=== PATIENT | female | born 1960 | race Caucasian/White ===

== ENCOUNTER 2016-07-02 19:27 | Observation (INO) ==
[2016-07-02] MEDS ORDERED: *HR* Morphine 2 MG/ML SYRINGE IVP ONE (19:45)
--- NOTE | 2016-07-02 19:51 | Emergency Department Note ---
Disposition Clinical Impression: Choledochocele Chest pain Qualifiers: Chest pain type: unspecified Qualified Code(s): R07.9 - Chest pain, unspecified Disposition: Admitted As Inpatient Condition: Fair General Adult HPI - General Chief complaint: ED Chest Pain Stated complaint: CP Time Seen by Provider: 07/02/16 19:37 Source: patient Limitations: no limitations Nursing Notes Reviewed: Yes Vital Signs Reviewed: Yes - History of Present Illness HPI Narrative: 56-year-old female who reports that 3 hours ago she had sudden onset substernal chest pressure with discomfort radiating to the left arm. She says that this feels the same as when she had an UT approximately 2 years ago. At that time she had one stent placed this was done at [facility]. She said she has an additional symptom this time of abdominal discomfort radiating to her back which also started the same time. Prior to this there were no symptoms. She denies anything makes it better or worse. EMS administered 2 sublingual nitroglycerin which did not help her pain. She also received 325 of aspirin and 8 mg of Zofran. She reports her past medical history includes a brain aneurysm, hypertension, lung nodules. She currently takes metoprolol and aspirin. Radiation: extremity Pain Scale: 8 Consistency: constant Improves with: nothing Worsens with: nothing Associated symptoms: Reports: denies other symptoms Treatments Prior to Arrival: none - Related Data Previous Rx's Medication Instructions Recorded Hydrochlorothiazide 12.5 mg PO DAILY #10 tablet 01/05/16 Allergies Allergy/AdvReac Type Severity Reaction Status Date / Time No Known Allergies Allergy Verified 08/16/15 16:01 All systems ED: reviewed and negative except as stated. Constitutional: Denies: fever ENT ED: Denies: throat pain Cardiovascular: Reports: chest pain. Denies: syncope Respiratory: Reports: dyspnea. Denies: cough, wheezes Gastrointestinal: Reports: abdominal pain, nausea. Denies: vomiting, diarrhea, constipation, hematemesis Genitourinary: Denies: dysuria Musculoskeletal: Reports: back pain Integumentary: Denies: rash Neurological: Denies: headache Past Medical History - Past Medical History Medical history: Reports: coronary artery disease, GERD, hyperlipidemia, hypertension, kidney stones, myocardial infarction, other Surgical history: Reports: angioplasty/stent, appendectomy, cholecystectomy, hysterectomy, other (Lung biopsy with resultant pneumothorax and chest tube, kidney stone extraction) Psychiatric history: Reports: anxiety, depression COMMUNICATIONS CONTROLLER history: Reports: no COMMUNICATIONS CONTROLLER history - Social History Smoking Status: Current every day smoker Smokeless Tobacco Status: No Alcohol use: Reports: none Drug use: Reports: none Physical Exam - General Limitations: no limitations General appearance: alert, in distress - Head Head exam: atraumatic - Eye Eye exam: Present: normal appearance, PERRL, EOMI - ENT ENT exam: normal exam, normal oropharynx - Neck Neck exam: Present: normal inspection, full ROM - Chest Chest inspection: Present: normal inspection - Respiratory Respiratory exam: Present: normal lung sounds bilaterally. Absent: respiratory distress - Cardiovascular Cardiovascular exam: Present: regular rate, normal rhythm - Abdominal Exam Abdominal exam: Present: soft, tenderness (epigastrum) - Extremities Exam Extremities exam: Present: normal inspection - Back Exam Back exam: Present: normal inspection - Neurological Exam Neurological exam: Present: alert, oriented X3, CN II-XII intact - Psychiatric Psychiatric exam: Present: anxious - Skin Skin exam: Present: warm, dry Course Course Narrative: Due to her history of coronary arterial disease we will do a cardiac workup. I also have concern for aortic dissection as she does have pain radiating to her back and also includes C abdomen. Her EKG does not show acute abnormality and is normal sinus rhythm. Wells criteria for PE is 0. She has a normal heart rate with 100% SPO2 on room air and normal blood pressure. I will treat her symptoms while she is here and reevaluate - Reevaluation(s) Reevaluation #1: No dissection present. Dilated common bile duct is present. MRCP or ERCP recommended by radiology. Called the paging center and verified we will have GI coverage tomorrow. Will admit for symptomatic treatment, chest pain rule out , and and GI consultation. Reevaluation #2: Accepted by the hospitalist Vital Signs Temperature 0 F L 07/02/16 19:30 Pulse Rate 91 07/02/16 19:30 Respiratory Rate 18 07/02/16 19:30 Blood Pressure 124/93 07/02/16 19:30 O2 Sat by Pulse Oximetry 100 07/02/16 19:30 Temperature 0 F L 07/02/16 19:30 Pulse Rate 89 07/02/16 22:47 Respiratory Rate 16 07/02/16 22:47 Blood Pressure 115/70 07/02/16 22:47 O2 Sat by Pulse Oximetry 97 07/02/16 22:47 Oxygen Delivery Oxygen Delivery Room Air Medical Decision Making - Medical Records Medical records reviewed: Yes I reviewed the patient's medical records. - Lab Data Lab results reviewed: Yes I reviewed the patient's lab results. Result diagrams: 07/02/16 20:07 07/02/16 20:09 Lab Results 07/02/16 07/02/16 07/02/16 Range/Units 20:07 20:07 20:09 WBC 9.3 (4.3-11.1) K/mcL RBC 4.81 (3.82-4.97) M/mcL Hgb 14.1 (11.5-15.4) g/dL Hct 42.6 (35.3-44.9) % MCV 88.6 (83.0-100.0) fL MCH 29.3 (28.0-33.3) pg MCHC 33.1 (31.6-35.5) g/dL RDW 13.0 (11.5-14.5) % Plt Count 336 (140-400) K/mcL MPV 11.5 (9.4-12.4) fL Immature Gran % 0.5 (0-4) % Seg Neutrophils % 52.6 % Lymphocytes % 36.9 % Monocytes % 7.3 % Eosinophils % 1.7 % Basophils % 1.0 % Neutrophils # 4.9 (1.6-8.9) K/mcL Lymphocytes # 3.4 (0.6-4.6) K/mcL Monocytes # 0.7 (0.0-1.3) K/mcL Eosinophils # 0.2 (0.0-0.6) K/mcL Basophils # 0.1 (0.0-0.2) K/mcL Immature Plt Fraction 6.9 H (1.1-6.1) % PT 10.9 (9.4-12.1) Seconds INR 1.0 APTT 33.2 (26.0-36.0) Seconds Sodium (136-145) mEq/L Potassium (3.5-4.5) mEq/L Chloride (98-109) mEq/L Carbon Dioxide (19-29) mEq/L BUN (7-20) mg/dL Creatinine (0.57-1.11) mg/dL Est GFR ( Amer) (> 60) Est GFR (Non-Af Amer) (> 60) BUN/Creatinine Ratio (6-26) Glucose (70-99) mg/dL Calculated Osmolality (280-300) Calcium (8.6-10.8) mg/dL Total Bilirubin (0.2-1.2) mg/dL Direct Bilirubin (0.0-0.5) mg/dL Indirect Bilirubin (0.0-1.2) mg/dL AST (5-34) Units/L ALT (0-55) Units/L Alkaline Phosphatase (38-126) Units/L Troponin I (0-0.03) ng/mL B-Natriuretic Peptide (0-100) pg/mL Serum Total Protein (6.0-8.3) g/dL Albumin (3.5-5.0) g/dL Globulin (2.4-3.5) g/dL Albumin/Globulin Ratio (1.1-2.2) Lipase (8-78) Units/L Specimen Rejected Clotted 07/02/16 07/02/16 07/02/16 Range/Units 20:09 20:09 21:04 WBC (4.3-11.1) K/mcL RBC (3.82-4.97) M/mcL Hgb (11.5-15.4) g/dL Hct (35.3-44.9) % MCV (83.0-100.0) fL MCH (28.0-33.3) pg MCHC (31.6-35.5) g/dL RDW (11.5-14.5) % Plt Count (140-400) K/mcL MPV (9.4-12.4) fL Immature Gran % (0-4) % Seg Neutrophils % % Lymphocytes % % Monocytes % % Eosinophils % % Basophils % % Neutrophils # (1.6-8.9) K/mcL Lymphocytes # (0.6-4.6) K/mcL Monocytes # (0.0-1.3) K/mcL Eosinophils # (0.0-0.6) K/mcL Basophils # (0.0-0.2) K/mcL Immature Plt Fraction (1.1-6.1) % PT (9.4-12.1) Seconds INR APTT (26.0-36.0) Seconds Sodium 138 (136-145) mEq/L Potassium 4.1 (3.5-4.5) mEq/L Chloride 110 H (98-109) mEq/L Carbon Dioxide 15 L (19-29) mEq/L BUN 19 (7-20) mg/dL Creatinine 0.89 (0.57-1.11) mg/dL Est GFR ( Amer) > 60 (> 60) Est GFR (Non-Af Amer) > 60 (> 60) BUN/Creatinine Ratio 21 (6-26) Glucose 89 (70-99) mg/dL Calculated Osmolality 288 (280-300) Calcium 10.4 (8.6-10.8) mg/dL Total Bilirubin 0.7 (0.2-1.2) mg/dL Direct Bilirubin 0.2 (0.0-0.5) mg/dL Indirect Bilirubin 0.5 (0.0-1.2) mg/dL AST 19 (5-34) Units/L ALT 22 (0-55) Units/L Alkaline Phosphatase 130 H (38-126) Units/L Troponin I 0.01 (0-0.03) ng/mL B-Natriuretic Peptide < 10 (0-100) pg/mL Serum Total Protein 8.3 (6.0-8.3) g/dL Albumin 4.5 (3.5-5.0) g/dL Globulin 3.8 H (2.4-3.5) g/dL Albumin/Globulin Ratio 1.2 (1.1-2.2) Lipase 8 (8-78) Units/L Specimen Rejected - Radiology Data Radiology results reviewed: Yes I reviewed the patient's radiology results. - EKG Data EKG #1 EKG attestation: Yes I reviewed and interpreted this EKG. EKG shows normal: sinus rhythm Rate: normal Rhythm: NSR [place]/QRS: normal When compared to previous EKG there are: no significant changes Interpretation: no acute changes Attestation Statement - Attestation Attestation: I, Chase Vasquez MD, personally performed a history and physical exam of the patient and discussed their management with the resident. I reviewed the resident's note and agree with the documented findings, medical decision making , and plan of care. 56-year-old female presents to the emergency department by EMS with a complaint of acute onset of severe sharp substernal chest pain approximately 3 hours prior to arrival. The pain radiates to the back and also down into the abdomen. The pain also radiates to the left shoulder and down the left arm. It also radiates to the left neck and jaw and up to the left cheondoism. Patient has a history of an UT about 2 years ago and states that this feels the same. She rates the pain 8 out of 10. She reports that with her last UT nothing showed up on the EKG but it showed up in the lab work and she then had a cardiac catheterization and a coronary artery stent placed. She is a smoker and continues to smoke about 1 pack per day. She was given aspirin and nitroglycerin. EMS with no change in the pain. On examination patient is a well-developed thin female in no acute distress but does appear to be in moderate discomfort. Vitals are normal. There is no cyanosis or diaphoresis. She is alert and oriented 3. Chest is nontender to palpation. Breath sounds are decreased bilaterally. Heart regular rate and rhythm. Abdomen soft and nontender with normal bowel sounds. Labs reviewed. Troponin and BNP normal. Initial EKG normal. Chest x-ray just shows COPD. CTA of the chest abdomen and pelvis obtained and showed no evidence of aortic dissection. There was marked dilation of the common bile duct and ERCP or MRCP was recommended. The hospitalist was consulted and accepted admission of the patient.
[2016-07-02 20:43] LABS: Prothrombin Time 10.9 Seconds (9.4-12.1)
[2016-07-02] MEDS ORDERED: *HR* HYDROmorphone (PF) 1 MG/ML SYRINGE IVP ONE ×2 (20:43→22:16)
[2016-07-02 20:45] LABS: Activated Partial Thrombo Time 33.2 Seconds (26.0-36.0)
[2016-07-02 20:53] LABS: Alanine Aminotransferase 22 Units/L (0-55); Albumin 4.5 g/dL (3.5-5.0); Albumin/Globulin Ratio 1.2 (1.1-2.2); Alkaline Phosphatase 130 Units/L (38-126); Aspartate Amino Transferase 19 Units/L (5-34); BUN/Creatinine Ratio 21 (6-26); Bilirubin,Direct 0.2 mg/dL (0.0-0.5); Bilirubin,Indirect 0.5 mg/dL (0.0-1.2); Bilirubin,Total 0.7 mg/dL (0.2-1.2); Blood Urea Nitrogen 19 mg/dL (7-20); Calcium 10.4 mg/dL (8.6-10.8); Carbon Dioxide 15 mEq/L (19-29); Chloride 110 mEq/L (98-109); Globulin 3.8 g/dL (2.4-3.5); Glucose 89 mg/dL (70-99); Lipase 8 Units/L (8-78); Osmolality,Calculated 288 (280-300); Potassium 4.1 mEq/L (3.5-4.5); Sodium 138 mEq/L (136-145); Total Protein 8.3 g/dL (6.0-8.3); eGFR For African Americans > 60 (> 60); eGFR For Non-African Americans > 60 (> 60)
[2016-07-02 21:14] LABS: Basophils # 0.1 K/mcL (0.0-0.2); Eosinophils # 0.2 K/mcL (0.0-0.6); Eosinophils % 1.7 %; Hematocrit 42.6 % (35.3-44.9); Hemoglobin 14.1 g/dL (11.5-15.4); Immature Granulocytes % 0.5 % (0-4); Immature Platelets 6.9 % (1.1-6.1); Lymphocytes # 3.4 K/mcL (0.6-4.6); Lymphocytes % 36.9 %; Mean Corpuscular HGB Conc 33.1 g/dL (31.6-35.5); Mean Corpuscular Hemoglobin 29.3 pg (28.0-33.3); Mean Corpuscular Volume 88.6 fL (83.0-100.0); Mean Platelet Volume 11.5 fL (9.4-12.4); Monocytes # 0.7 K/mcL (0.0-1.3); Monocytes % 7.3 %; Neutrophils # 4.9 K/mcL (1.6-8.9); Platelet Count 336 K/mcL (140-400); Red Blood Count 4.81 M/mcL (3.82-4.97); Segmented Neutrophils % 52.6 %
[2016-07-02] MEDS ORDERED: Ondansetron 4 MG/2 ML VIAL IVP ONE (22:26)
[2016-07-02] MEDS ORDERED: *HR* Promethazine 25 MG/ML VIAL IVP ONE (22:36)
[2016-07-02] MEDS ORDERED: Naloxone 0.4 MG/ML INJ IVP PRN (22:53)
[2016-07-02] MEDS ORDERED: Acetaminophen 325 MG TABLET PO PRN (22:53)
[2016-07-02] MEDS ORDERED: *HR* HYDROcodone/Acet 5/325 mg TABLET PO PRN (22:53)
--- NOTE | 2016-07-02 22:59 | Internal Med History&Physical ---
Date of Encounter: 07/02/16 Time of Encounter: 22:57 Assessment and Plan (1) Chest pain Current visit: Yes Status: Acute Typical cardiac chest pain Possibly stable vs unstable angina EKG NSR, Troponin negative ASA , SL NTG prn, Trend troponin Add Lipitor Continue metoprolol Qualifiers: Chest pain type: unspecified Qualified Code(s): R07.9 - Chest pain, unspecified (2) Choledochocele Current visit: Yes Status: Acute CT findings of 22mm dilated CBD, suspicious for choledochocele Consult GI for ERCP/MRCP LFT WNL NPO from midnight (3) Lung nodule Current visit: Yes Status: Acute Consult pulmonary, high risk due to history of smoking (4) CAD (coronary artery disease) Current visit: Yes Status: Chronic Resume ASA, Metoprolol Add Lipitor Qualifiers: Coronary Disease-Associated Artery/Lesion type: [place] artery [place] vs. transplanted heart: [place] heart Associated angina: with unstable angina Qualified Code(s): I25.110 - Atherosclerotic heart disease of [place] coronary artery with unstable angina pectoris (5) HTN (hypertension) Current visit: Yes Status: Chronic Controlled, as above Qualifiers: Hypertension type: essential hypertension Qualified Code(s): I10 - Essential (primary) hypertension (6) Mass of right ear canal Current visit: Yes Status: Acute Obtain ENT consult Obtain Facial CT (7) Tobacco abuse Current visit: Yes Status: Chronic Cessation encouraged Nicotine patch Internal Medicine - H&P: HPI Chief complaint: Chest pain Admitted From: Home Plans for Post Hospital Care: Home History of present illness: Ms. Perdue is a 56 year old female with PMH of UT s/p stent 2 years ago, stated she stopped taking her "blood thinners"-possibly Plavix because she read a lot about it. She continues to smoke one pack per day. Other PMH significant for HTN, HLD, GERD, Renal surgery in the past She was in her usual state of health till ~4p,m today hen she developed 10/10 sudden substernal chest pain that felt like someone was sitting on her chest , radiating to her left arm and neck. She states she had no associated nausea or vomiting, but she also had abdominal pain on the RUQ. Denies diaphoresis, dizziness. Chest pain was relieved by SL NTG and ASA given by the squad. She denies fever or chills, cough, sputum production, or truama She denies scleral icterus, change in urine or bowel habits. She has been having headaches for a few days. ROS significant for tinnitus and hearing difficulty on her right ear. At time of review, she states chest pain is about 3/10. Physical Exam VSS; HR-97. BP 115/70. GEN: Not in distress HEENT: Right auricular canal mass with surrounding increased vascularity, TM shiny. Moist oral mucosa, sclera anicteric, conjuctiva is not pale Chest; No chest wall tenderness Heart: S1, S2 only, no m/g/r Abdomen: Soft, Scar:infra and supraumbilical , RUQ tenderness, Gutiérrez's sign positive, no guarding. No rebound, bowel sounds present in all quadrants Extremities: No edema Labs and Imaging reviewed EKG NSR< Troponin negative, CBC,Chem, LFT unremarkable. Chest/Abdomen/Pelvis CTA: No dissection, pulmonary nodules, new , dilated CBD 22mm, cholodochocele Patient will be placed on observation for 1.chest pain , likely unstable angina give the classic presentation and risk factors 2. Pulmonary nodules 3. CBD dilation/Choledochocele 4. R ear mass. Details as in A/P Past Med Surg Social Fam HX - Past Medical History Medical history: coronary artery disease, GERD, hyperlipidemia, hypertension, kidney stones, myocardial infarction, other Psychiatric history: anxiety, depression - Past Surgical History Surgical History: angioplasty/stent, appendectomy, cholecystectomy, hysterectomy , other (Lung biopsy with resultant pneumothorax and chest tube, kidney stone extraction) - Social History Smoking Status: Current every day smoker Smokeless Tobacco Status: No Alcohol use: none Drug use: none Internal Medicine - H&P: Meds Hydrochlorothiazide 12.5 mg PO DAILY #10 tablet 01/05/16 [Rx] Allergies No Known Allergies Allergy (Verified 08/16/15 16:01) All Systems PM: A 10-system review of systems was performed and is negative for pertinent findings except as documented above in the HPI. - Constitutional Constitutional: no chills, no fever(s), no night sweats - EENT Eyes: no change in vision, no discharge, no pain, no photophobia Ears: no ear discharge, no ear pain, no tinnitus Nose, mouth and throat: no dysphagia, no nasal discharge, no neck pain, no sore throat - Cardiovascular Cardiovascular ROS IM: as per HPI - Respiratory Respiratory: as per HPI - Gastrointestinal Gastrointestinal: as per HPI - Genitourinary Genitourinary: no change in urinary stream, no dysuria, no flank pain, no hematuria - Musculoskeletal Musculoskeletal ROS IM: no numbness, no tingling - Integumentary Integumentary IM: no rash, no unusual bruising - Neurological Neurological ROS: no confusion, no convulsions, no focal weakness, no numbness, no tingling, no tremor(s) - Hematologic/Lymphatic Hematologic/Lymphatic: no easy bruising - Constitutional Vitals: Temp Pulse Resp BP Pulse Ox 0 F L 89 16 115/70 97 07/02/16 19:30 07/02/16 22:47 07/02/16 22:47 07/02/16 22:47 07/02/16 22:47 General appearance: Present: A&O X 3, pleasant, no acute distress - Head Head exam: Present: atraumatic, normocephalic - Eye Eye exam: Present: PERRL, conjuntiva pink, sclera anicteric Pupils: Present: PERRL - ENT Additional comments: Right ear auricular mass - Neck Neck exam general surgery: Present: supple, trachea midline. Absent: lymphadenopathy - Respiratory Respiratory exam: Present: CTAB. Absent: accessory muscle use, rales, rhonchi, wheezes - Cardiovascular Cardiovascular exam: Present: RRR, +S1, +S2. Absent: diastolic murmur, gallop, rubs, systolic murmur - GI/Abdominal GI/Abdominal exam: Present: normal bowel sounds, soft, tenderness. Absent: guarding, rebound - Extremities Exam Extremities exam: Present: warm, radial pulses palpable and symetrical. Absent : calf tenderness, cyanotic, pedal edema - Neurological Exam Neurological exam: Present: CN II-XII intact, oriented X3, no focal deficits. Absent: pronater drift, facial droop, speech deficit - Skin Skin exam: Present: dry, intact Internal Med - H&P Results - Labs CBC & Chem 7: 07/02/16 20:07 07/02/16 20:09 Labs: Short CBC 07/02/16 Range/Units 20:07 WBC 9.3 (4.3-11.1) K/mcL Hgb 14.1 (11.5-15.4) g/dL Hct 42.6 (35.3-44.9) % Plt Count 336 (140-400) K/mcL Neutrophils # 4.9 (1.6-8.9) K/mcL BMP 07/02/16 20:09 Sodium 138 Potassium 4.1 Chloride 110 H Carbon Dioxide 15 L BUN 19 Creatinine 0.89 Glucose 89 Calcium 10.4 Cardiac Enzymes 07/02/16 Range/Units 21:04 Troponin I 0.01 (0-0.03) ng/mL Liver Function 07/02/16 Range/Units 20:09 Total Bilirubin 0.7 (0.2-1.2) mg/dL Direct Bilirubin 0.2 (0.0-0.5) mg/dL AST 19 (5-34) Units/L ALT 22 (0-55) Units/L Alkaline Phosphatase 130 H (38-126) Units/L Albumin 4.5 (3.5-5.0) g/dL - Impressions ITS Impressions Abdomen/Pelvis CTA 07/02/16 00:00 IMPRESSION: Negative for aortic dissection Multiple pulmonary nodules suspicious for neoplasm or metastatic disease. Findings suspicious for large choledochocele ERCP or MRCP is recommended for further evaluation. Fatty liver Large ventral hernia without contained bowel D/ / Ish Aj MD / Ish Aj MD Interpreting Provider: Ish Aj MD Chest CTA 07/02/16 19:45 IMPRESSION: Negative for aortic dissection Multiple pulmonary nodules suspicious for neoplasm or metastatic disease. Findings suspicious for large choledochocele ERCP or MRCP is recommended for further evaluation. Fatty liver Large ventral hernia without contained bowel D/ / Ish Aj MD / Ish Aj MD Interpreting Provider: Ish Aj MD Chest X-Ray 07/02/16 19:45 IMPRESSION: COPD D/ / Ish Aj MD / Ish Aj MD Interpreting Provider: Ish Aj MD
[2016-07-02] MEDS ORDERED: Nitroglycerin 0.4 MG TAB.SUBL SL PRN (23:30)
[2016-07-03] MEDS: 0.9 % Sodium Chloride 1,000 ML IVC SCH ×2 (01:00→18:55)
[2016-07-03] MEDS: *HR* Morphine 2 MG/ML SYRINGE IVP PRN ×5 (01:07→19:08)
[2016-07-03] MEDS: Ondansetron 4 MG/2 ML VIAL IVP PRN ×4 (01:07→23:14)
[2016-07-03 04:07] LABS: Basophils # 0.1 K/mcL (0.0-0.2); Basophils % 0.9 %; Eosinophils # 0.1 K/mcL (0.0-0.6); Eosinophils % 1.3 %; Hematocrit 40.3 % (35.3-44.9); Hemoglobin 12.9 g/dL (11.5-15.4); Immature Granulocytes % 0.7 % (0-4); Lymphocytes # 2.1 K/mcL (0.6-4.6); Lymphocytes % 24.4 %; Mean Corpuscular Hemoglobin 28.9 pg (28.0-33.3); Mean Corpuscular Volume 90.4 fL (83.0-100.0); Mean Platelet Volume 11.3 fL (9.4-12.4); Monocytes # 1.1 K/mcL (0.0-1.3); Monocytes % 12.6 %; Neutrophils # 5.1 K/mcL (1.6-8.9); Platelet Count 320 K/mcL (140-400); Red Blood Count 4.46 M/mcL (3.82-4.97); Red Cell Distribution Width 13.1 % (11.5-14.5); Segmented Neutrophils % 60.1 %
[2016-07-03 04:21] LABS: BUN/Creatinine Ratio 20 (6-26); Blood Urea Nitrogen 19 mg/dL (7-20); Calcium 9.3 mg/dL (8.6-10.8); Carbon Dioxide 20 mEq/L (19-29); Chloride 112 mEq/L (98-109); Chol/HDL Ratio 8.2 (0-4.9); Cholesterol 278 mg/dL (< 200); Glucose 109 mg/dL (70-99); HDL Cholesterol 34 mg/dL (40-59); LDL Cholesterol,Calculated 204 mg/dL (0-99); Osmolality,Calculated 291 (280-300); Potassium 4.3 mEq/L (3.5-4.5); Sodium 139 mEq/L (136-145); Triglycerides 201 mg/dL (< 150); eGFR For African Americans > 60 (> 60); eGFR For Non-African Americans > 60 (> 60)
--- NOTE | 2016-07-03 09:15 | Gastroenterology Consult Note ---
<Raisa Washington - Last Filed: 07/03/16 11:37> Date of Encounter: 07/03/16 Time of Encounter: 10:35 - Assessment and plan (1) Dilated cbd, acquired Current Visit: Yes Status: Acute Assessment and plan: 22mm, s/p cholecystectomy. Normal LFTS, slightly elev alk phos only. MRCP now. Likely follow up in OTPT setting for possible EUS with . (2) Abdominal pain Current Visit: Yes Status: Acute Assessment and plan: MRCP ordered pending results. Qualifiers: Abdominal location: right upper quadrant Qualified Code(s): R10.11 - Right upper quadrant pain - Time Spent With Patient Total time spent is greater than 50% in coordination of care (as documented) at patient's floor/unit and/or counseling patient: less than 15 minutes GI History of Present Illness - Data of Consult Patient: new to practice Consult date: 07/03/16 Requesting Physician: Pao Núñez - Consult Narrative Reason for consult: Abd pain, dilated CBD 22mm History of present illness: Ms. Perdue is a 56 year old female with PMH of ND s/p cardiac stent 2014, HTN, HLD , GERD, current smoker. She reported to the ED with complaint of sudden onset chest pain with radiation to L arm and neck. She also complained of RUQ abdominal pain, H/A, tinnitus and hearing difficulty R ear. She was given nitro SL and full strength asa by squad in route. EKG did not show changes. CTA to r/ o aortic dissection revealed grossly dilated CBD of 22 mm. No stones were seen in the imaging. She is s/p cholecystectomy. Patient states pain has improved since admission, but she had these symptoms for several days at home prior to presenting to the ER, she 'thought I was having a heart attack again'. She reports prior endoscopy at [place] about 2 years ago, colon polyps. She requested something for anxiety prior to MRCP. Denied indigestion/heartburn, dysphagia, N/V, change in bowel habits. No black stool or blood in stool reported. Colonoscopy: Approx 2 years - [place] - polyps per patient EGD: Approx 2 years - [place] - unknown results per patient Past Med Surg Social Fam HX - Past Medical History Medical history: coronary artery disease, GERD, hyperlipidemia, hypertension, kidney stones, myocardial infarction, other Psychiatric history: anxiety, depression - Past Surgical History Surgical History: angioplasty/stent, appendectomy, cholecystectomy, hysterectomy , other - Social History Smoking Status: Current every day smoker Smokeless Tobacco Status: No Alcohol use: none Drug use: none - Family History Mother Living Status: Age at : 62 Cause of : ND Hx Family Endocrine Disorder: Yes (DM) Father Living Status: Cause of : Brain aneurysm Hx Family Cardiac Disorders: Yes (stroke) - Gastrointestinal NSAID use: None Anticoagulation Use: None Number of BM Per Day: 1-2 Gastrointestinal: Present: abdominal pain - Constitutional Constitutional: as per HPI - EENT Eyes: as per HPI Ears: Present: as per HPI Nose, mouth and throat: Present: as per HPI - Cardiovascular Cardiovascular ROS: Present: as per HPI - Respiratory Respiratory IM: Present: as per HPI - Neurological ROS Neurological GI: Present: as per HPI - Hematologic/Lymphatic Hematologic/Lymphatic pediatric: Present: as per HPI - Musculoskeletal Musculoskeletal ROS GI: Present: as per HPI - Integumentary Integumentary GI: Present: as per HPI - Psychiatric ROS Psychiatric GI: Present: as per HPI - Endocrine Endocrine IM: Present: as per HPI - Constitutional Vitals: Temp Pulse Resp BP Pulse Ox 97.6 F 72 15 96/57 94 L 07/03/16 07:10 07/03/16 07:10 07/03/16 07:10 07/03/16 07:10 07/03/16 07:10 General appearance: Present: cooperative, A&O X 3, no acute distress, answers questions appropriately - Head Head exam: Present: atraumatic, normocephalic - Eye Eye exam: Present: normal appearance, sclera anicteric - ENT ENT exam: Present: mucous membranes moist - Neck Neck exam general surgery: Present: normal inspection, trachea midline - Respiratory Respiratory exam: Present: CTAB - Cardiovascular Cardiovascular exam: Present: RRR, +S1, +S2 - GI/Abdominal GI/Abdominal exam: Present: soft, tenderness, no peritoneal signs - Rectal Rectal exam: Present: deferred - Extremities Exam Extremities exam: Present: warm - Neurological Exam Neurological exam: Present: no focal deficits - Psychiatric Psychiatric exam: Present: anxious - Skin Skin exam: Present: dry, intact, normal color, warm Results - Labs CBC & Chem 7: 07/03/16 03:51 07/03/16 03:51 Labs: Last Result Calcium 9.3 mg/dL (8.6-10.8) 07/03/16 03:51 Troponin I 0.00 ng/mL (0-0.03) 07/03/16 03:51 Triglycerides 201 mg/dL (< 150) H 07/03/16 03:51 Entire Visit Hgb 12.9 g/dL (11.5-15.4) 07/03/16 03:51 Hct 40.3 % (35.3-44.9) 07/03/16 03:51 PT 10.9 Seconds (9.4-12.1) 07/02/16 20:09 Total Bilirubin 0.7 mg/dL (0.2-1.2) 07/02/16 20:09 AST 19 Units/L (5-34) 07/02/16 20:09 ALT 22 Units/L (0-55) 07/02/16 20:09 Lipase 8 Units/L (8-78) 07/02/16 20:09 - ABG ABG results: PT/INR, D-dimer PT 10.9 Seconds (9.4-12.1) 07/02/16 20:09 Consult Discharge Plan - Plan Referrals: Ronda Zuniga DO [Primary Care Provider] - <Clarissa Carreon - Last Filed: 07/03/16 17:29> Date of Encounter: 07/03/16 Time of Encounter: 15:00 - Time Spent With Patient Total time spent is greater than 50% in coordination of care (as documented) at patient's floor/unit and/or counseling patient: GI History of Present Illness - Data of Consult Requesting Physician: Pao Núñez - Consult Narrative History of present illness: Ms. Perdue is a 56 year old female - Constitutional Vitals: Temp Pulse Resp BP Pulse Ox 98.3 F 87 17 113/71 93 L 07/03/16 16:19 07/03/16 16:19 07/03/16 16:19 07/03/16 16:19 07/03/16 16:19 Results - Labs CBC & Chem 7: 07/03/16 03:51 07/03/16 03:51 Labs: Last Result Calcium 9.3 mg/dL (8.6-10.8) 07/03/16 03:51 Troponin I 0.00 ng/mL (0-0.03) 07/03/16 10:32 Triglycerides 201 mg/dL (< 150) H 07/03/16 03:51 Entire Visit Hgb 12.9 g/dL (11.5-15.4) 07/03/16 03:51 Hct 40.3 % (35.3-44.9) 07/03/16 03:51 PT 10.9 Seconds (9.4-12.1) 07/02/16 20:09 Total Bilirubin 0.7 mg/dL (0.2-1.2) 07/02/16 20:09 AST 19 Units/L (5-34) 07/02/16 20:09 ALT 22 Units/L (0-55) 07/02/16 20:09 Lipase 8 Units/L (8-78) 07/02/16 20:09 - ABG ABG results: PT/INR, D-dimer PT 10.9 Seconds (9.4-12.1) 07/02/16 20:09 - Impressions Impressions Abdomen MRI 07/03/16 10:03 IMPRESSION: 1. Prior cholecystectomy with no focal gallbladder fossa abnormality or intrahepatic biliary dilatation. 2. Stable 1.7 cm dilatation of the proximal common bile duct which tapers to 5 mm of the distal aspect. This is unchanged compared with prior CT abdomen 12/06/2008 and may represent a type 1 choledochal cyst. 3. No acute abnormality. D/ / 07/03/2016 14:44:36 Marco Dillard MD / keisha Interpreting Provider: Marco Dillard MD Internal Auditory Canal CT 07/03/16 12:00 IMPRESSION: Small amount of fluid in the right mastoid air cells which may be seen with mastoiditis. Minimal bilateral ethmoid sinus disease. D/ / Ish Aj MD / Ish Aj MD Interpreting Provider: Ish Aj MD - Attending Attestation I examined this patient and my medical decision-making was reviewed with the EVENTS SPECIALIST/PA/Advanced Practice Nurse/Resident Physician. I agree with the documented findings, disposition and treatment plan as described except to the extent set forth below. Patient with abdominal epigastric lower chest pain. CT and MRCP are unremarkable, no CBD stone LFTs are normal and dilated CBD is stable for years. EGD in the morning to rule out any gastric/esophageal causes for her abdominal pain
[2016-07-03] MEDS: Aspirin Enteric Coated 81 MG Tablet PO SCH (09:36)
[2016-07-03] MEDS: Nicotine 21 MG PATCH.TD24 TD SCH (09:38)
[2016-07-03] MEDS ORDERED: diazePAM 10 MG TABLET PO ONE (11:36)
--- NOTE | 2016-07-03 14:31 | Electrocardiograph Report ---
[facility] Test Date: 2016-07-02 Pat Name: Christine Perdue Department: 102 Room: 3B37 Gender: F Hotbed Operator: Harley : 1960 Requested By: Gorge Colon Order Number: [id number] Reading MD: Syed Desouza MD Measurements Intervals Mccune Rate: 92 P: 54 ME: 142 QRS: 16 QRSD: 85 T: 54 QT: 366 QTc: 416 Interpretive Statements SINUS RHYTHM Electronically Signed On 07-03-16 14:30:33 EST by Syed Desouza MD
--- NOTE | 2016-07-03 15:04 | Internal Med Progress Note ---
Date of Encounter: 07/03/16 Time of Encounter: 11:00 - Assessment and plan (1) Abdominal pain Current Visit: Yes Status: Acute Assessment and plan: GI is on board. Abdominal pelvic CTA concerning for large choledochocele. MRCP revealing choledochocyst. Appreciate GI input. We will continue to control her pain. ITS Impressions Abdomen/Pelvis CTA 07/02/16 00:00 Chest CTA 07/02/16 19:45 IMPRESSION: Negative for aortic dissection Multiple pulmonary nodules suspicious for neoplasm or metastatic disease. Findings suspicious for large choledochocele ERCP or MRCP is recommended for further evaluation. Fatty liver Large ventral hernia without contained bowel D/ / Ish Aj MD / Ish Aj MD Interpreting Provider: Ish Aj MD Abdomen MRI 07/03/16 10:03 IMPRESSION: 1. Prior cholecystectomy with no focal gallbladder fossa abnormality or intrahepatic biliary dilatation. 2. There is a 1.8 cm dilatation of the proximal common bile duct which tapers to 5 mm of the distal aspect. 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 3. No acute abnormality. D/ / 07/03/2016 14:44:36 Marco Dillard MD / keisha Interpreting Provider: Marco Dillard MD Qualifiers: Abdominal location: right upper quadrant Qualified Code(s): R10.11 - Right upper quadrant pain (2) Chest pain Current Visit: Yes Status: Resolved Assessment and plan: Patient denies chest pain at this time. No ECG changes, troponin negative, do not suspect ACS. Qualifiers: Chest pain type: unspecified Qualified Code(s): R07.9 - Chest pain, unspecified (3) Choledochocele Current Visit: Yes Status: Acute (4) Dilated cbd, acquired Current Visit: Yes Status: Acute (5) Lung nodule Current Visit: Yes Status: Chronic Assessment and plan: In review of her chart, lung nodules were noted last year. In August 2015 she had a PET scan that was unremarkable. 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 Patient has followed up with pulmonology Dr. Suarez. She currently denies shortness of breath above her norm. (6) Mass of right ear canal Current Visit: Yes Status: Acute Assessment and plan: CT revealing possible mastoiditis, we will initiate Cipro and consult ENT. Patient is afebrile, no leukocytosis. Clinical suspicion for mastoiditis low however will appreciate ENT consultation. ITS Impressions Internal Auditory Canal CT 07/03/16 12:00 IMPRESSION: Small amount of fluid in the right mastoid air cells which may be seen with mastoiditis. Minimal bilateral ethmoid sinus disease. D/ / Ish Aj MD / Ish Aj MD Interpreting Provider: Ish Aj MD (7) CAD (coronary artery disease) Current Visit: Yes Status: Chronic Assessment and plan: Patient denies chest pain or shortness of breath. Qualifiers: Coronary Disease-Associated Artery/Lesion type: creek artery [place] vs. transplanted heart: creek heart Associated angina: with unstable angina Qualified Code(s): I25.110 - Atherosclerotic heart disease of creek coronary artery with unstable angina pectoris (8) HTN (hypertension) Current Visit: Yes Status: Chronic Assessment and plan: Controlled, hypotensive even though her lisinopril has been held. We will decrease her metoprolol dosage and monitor. Qualifiers: Hypertension type: essential hypertension Qualified Code(s): I10 - Essential (primary) hypertension (9) Tobacco abuse Current Visit: Yes Status: Chronic (10) Hyperlipemia Current Visit: No Status: Chronic Assessment and plan: Lipid panel abnormal, will initiate statin - Subjective Interval history: Patient is seen and examined. On examination, patient sitting upright in bed. Patient alert and oriented 3 and currently complains of a headache that is consistent with her chronic headaches. Patient also endorsing right upper quadrant abdominal pain. - Constitutional Vitals: Temp Pulse Resp BP Pulse Ox 97.8 F 95 17 84/59 96 07/03/16 11:27 07/03/16 11:27 07/03/16 11:27 07/03/16 11:27 07/03/16 11:27 General appearance: Present: A&O X 3, pleasant, no acute distress, answers questions appropriately - Head Head exam: Present: atraumatic, normocephalic - Eye Eye exam: Present: PERRL, conjuntiva pink, sclera anicteric Pupils: Present: PERRL - Neck Neck exam general surgery: Present: supple, trachea midline. Absent: lymphadenopathy - Respiratory Respiratory exam: Present: decreased breath sounds. Absent: accessory muscle use, rales, respiratory distress, rhonchi, wheezes - Cardiovascular Cardiovascular exam: Present: RRR, +S1, +S2. Absent: diastolic murmur, gallop, rubs, systolic murmur - GI/Abdominal GI/Abdominal exam: Present: normal bowel sounds, soft, tenderness, no peritoneal signs. Absent: distended - Extremities Exam Extremities exam: Present: warm, radial pulses palpable and symetrical. Absent : calf tenderness, cyanotic, pedal edema - Neurological Exam Neurological exam: Present: alert, CN II-XII intact, normal gait, oriented X3, no focal deficits, strengths equal and symetr throughout. Absent: pronater drift, facial droop, speech deficit - Skin Skin exam: Present: dry, intact, pallor, warm Internal Medicine: Result - Labs CBC & Chem 7: 07/03/16 03:51 07/03/16 03:51 Labs: Short CBC 07/03/16 Range/Units 03:51 WBC 8.5 (4.3-11.1) K/mcL Hgb 12.9 (11.5-15.4) g/dL Hct 40.3 (35.3-44.9) % Plt Count 320 (140-400) K/mcL Neutrophils # 5.1 (1.6-8.9) K/mcL BMP 07/03/16 03:51 Sodium 139 Potassium 4.3 Chloride 112 H Carbon Dioxide 20 BUN 19 Creatinine 0.94 Glucose 109 H Calcium 9.3 Cardiac Enzymes 07/03/16 07/03/16 Range/Units 03:51 10:32 Troponin I 0.00 0.00 (0-0.03) ng/mL - ABG Interpretation ABG results: PT/INR, D-dimer PT 10.9 Seconds (9.4-12.1) 07/02/16 20:09 - Impressions Impressions Abdomen MRI 07/03/16 10:03 IMPRESSION: 1. Prior cholecystectomy with no focal gallbladder fossa abnormality or intrahepatic biliary dilatation. 2. There is a 1.8 cm dilatation of the proximal common bile duct which tapers to 5 mm of the distal aspect. 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 3. No acute abnormality. D/ / 07/03/2016 14:44:36 Marco Dillard MD / keisha Interpreting Provider: Marco Dillard MD Internal Auditory Canal CT 07/03/16 12:00 IMPRESSION: Small amount of fluid in the right mastoid air cells which may be seen with mastoiditis. Minimal bilateral ethmoid sinus disease. D/ / Ish Aj MD / Ish Aj MD Interpreting Provider: Ish Aj MD Consult Discharge Plan - Plan Referrals: Ronda Zuniga DO [Primary Care Provider] -
--- NOTE | 2016-07-03 17:29 | ENT - Consult Note ---
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 She desires correction of this. 1. Dry ear precautions discussed 2. Needs ENT/Audio consult - audio prior to ENT visit on that day, will relay to our schedulers 3. Please provide ENT contact information on discharge Qualifiers: Laterality: right Qualified Code(s): H72.01 - Central perforation of tympanic membrane, right ear History of Present Illness Consult date: 07/03/16 Reason for ENT Consult: other ("Right ear mass") History of present illness: 56 y/o F here for chest pain workup on screening exam admitting physician saw a R ear mass. CT Tbone was ordered and ENT consulted. CT showed some fluid in the R mastoid, which was mentioned could occur in mastoiditis. She reports having a tympanic membrane perforation for years, going back to when she was a child. This was repaired w/ t-plasty about 15 years ago but it failed to take. She has had a perforation ever since. Itching on occasion and hearing loss. Hasn't been back to see ENT for this but wants to get it addressed. No recent audio. Past Med Surg Social Fam HX - Past Medical History Medical history: coronary artery disease, GERD, hyperlipidemia, hypertension, kidney stones, myocardial infarction, other Psychiatric history: anxiety, depression - Past Surgical History Surgical History: angioplasty/stent, appendectomy, cholecystectomy, hysterectomy , other - Social History Smoking Status: Current every day smoker Smokeless Tobacco Status: No Alcohol use: none Drug use: none - Family History Mother Living Status: Age at : 62 Cause of : DC Hx Family Endocrine Disorder: Yes (DM) Father Living Status: Cause of : Brain aneurysm Hx Family Cardiac Disorders: Yes (stroke) Medications and Allergies Albuterol Neb [Proventil Neb] 2.5 mg IH TID PRN 07/03/16 [History] Albuterol Sulfate [Albuterol Inhaler] 2 puff IH Q4H PRN 07/03/16 [History] Lisinopril [Zestril] 20 mg PO DAILY 07/03/16 [History] Metoprolol Tartrate [Metoprolol Tartrate] 25 mg PO BID 07/03/16 [History] Nortriptyline [Pamelor] 30 mg PO HS 07/03/16 [History] Omeprazole [Omeprazole] 40 mg PO DAILY 07/03/16 [History] Trazodone HCl 100 mg PO HS 07/03/16 [History] Allergies No Known Allergies Allergy (Verified 08/16/15 16:01) ENT Exam Initial Vital Signs Temp Pulse Resp BP Pulse Ox 0 F L 91 18 124/93 100 07/02/16 19:30 07/02/16 19:30 07/02/16 19:30 07/02/16 19:30 07/02/16 19:30 - ENT normal pinna, Other (Right ear canal patent, inferior 2/3 of the R TM is perforated, middle ear mucosa normal, no cholesteatoma; L TM normal) Exam Initial Vital Signs Temp Pulse Resp BP Pulse Ox 0 F L 91 18 124/93 100 07/02/16 19:30 07/02/16 19:30 07/02/16 19:30 07/02/16 19:30 07/02/16 19:30 Results - Labs 07/03/16 03:51 07/03/16 03:51 Abnormal lab results Immature Plt Fraction 6.9 % (1.1-6.1) H 07/02/16 20:07 Chloride 112 mEq/L (98-109) H 07/03/16 03:51 Glucose 109 mg/dL (70-99) H 07/03/16 03:51 Alkaline Phosphatase 130 Units/L (38-126) H 07/02/16 20:09 Globulin 3.8 g/dL (2.4-3.5) H 07/02/16 20:09 Triglycerides 201 mg/dL (< 150) H 07/03/16 03:51 Cholesterol 278 mg/dL (< 200) H 07/03/16 03:51 LDL Cholesterol, Calc 204 mg/dL (0-99) H 07/03/16 03:51 VLDL Cholesterol, Calc 40 mg/dL (< 31) H 07/03/16 03:51 HDL Cholesterol 34 mg/dL (40-59) L 07/03/16 03:51 Cholesterol/HDL Ratio 8.2 (0-4.9) H 07/03/16 03:51 Diabetes panel 07/03/16 Range/Units 03:51 Sodium 139 (136-145) mEq/L Potassium 4.3 (3.5-4.5) mEq/L Chloride 112 H (98-109) mEq/L Carbon Dioxide 20 (19-29) mEq/L BUN 19 (7-20) mg/dL Creatinine 0.94 (0.57-1.11) mg/dL Glucose 109 H (70-99) mg/dL Calcium 9.3 (8.6-10.8) mg/dL Triglycerides 201 H (< 150) mg/dL HDL Cholesterol 34 L (40-59) mg/dL Calcium panel 07/03/16 Range/Units 03:51 Calcium 9.3 (8.6-10.8) mg/dL Pituitary panel 07/03/16 Range/Units 03:51 Sodium 139 (136-145) mEq/L Potassium 4.3 (3.5-4.5) mEq/L Chloride 112 H (98-109) mEq/L Carbon Dioxide 20 (19-29) mEq/L BUN 19 (7-20) mg/dL Creatinine 0.94 (0.57-1.11) mg/dL Glucose 109 H (70-99) mg/dL Calcium 9.3 (8.6-10.8) mg/dL Adrenal panel 07/03/16 Range/Units 03:51 Sodium 139 (136-145) mEq/L Potassium 4.3 (3.5-4.5) mEq/L Chloride 112 H (98-109) mEq/L Carbon Dioxide 20 (19-29) mEq/L BUN 19 (7-20) mg/dL Creatinine 0.94 (0.57-1.11) mg/dL Glucose 109 H (70-99) mg/dL Calcium 9.3 (8.6-10.8) mg/dL All other labs normal. Consult Discharge Plan - Plan Referrals: Ronda Zuniga DO [Primary Care Provider] -
--- NOTE | 2016-07-03 17:56 | Pre-Sedation Evaluation ---
Pre-sedation evaluation - Pre-sedation checklist Date of procedure: 07/03/16 Procedure: Left lung biopsy Recent Vitals: Last Vital Signs Temp 98.3 F 07/03/16 16:19 Pulse 87 07/03/16 16:19 Resp 17 07/03/16 16:19 BP 113/71 07/03/16 16:19 Pulse Ox 93 L 07/03/16 16:19 H&P (including ROS) documented in medical record: Yes Previous reaction to sedatives/anesthetics: No Dietary Status: NPO after Midnight ASA Classification *see protocol: CLASS II-Mild systemic disease Plan of Care: Pt appropriate candidate for procedure/moderate/conscious sedation , Risks/benefits of procedure/sedation discussed w/ patient/family
[2016-07-03] MEDS ORDERED: *HR* Midazolam HCl 5 MG/5 ML VIAL IVP ONE (17:59)
[2016-07-03] MEDS ORDERED: *HR* FentaNYL (PF) 100 MCG/2 ML VIAL ONE (17:59)
[2016-07-03] MEDS ORDERED: *HR* FentaNYL (PF) 100 MCG/2 ML VIAL IVP PRN (18:02)
[2016-07-03] MEDS ORDERED: *HR* Midazolam HCl 5 MG/5 ML VIAL IVP PRN (18:02)
[2016-07-03] MEDS ORDERED: Tetracaine/Benzocaine/Butamben 200MG/SPRAY (100SPY/BOT) MM ONE (18:02)
[2016-07-03] MEDS ORDERED: 0.9 % Sodium Chloride 1,000 ML IVC SCH (18:15)
[2016-07-03] MEDS ORDERED: *HR* HYDROmorphone (PF) 1 MG/ML SYRINGE IVP ONE (20:45)
[2016-07-03] MEDS ORDERED: Ketorolac 15 MG/ML VIAL IVP PRN (20:45)
[2016-07-03] MEDS: *HR* HYDROmorphone (PF) 1 MG/ML SYRINGE IVP PRN (23:15)
[2016-07-04] MEDS: *HR* HYDROmorphone (PF) 1 MG/ML SYRINGE IVP PRN ×5 (02:19→19:54)
[2016-07-04] MEDS: Ondansetron 4 MG/2 ML VIAL IVP PRN ×2 (05:10→14:15)
[2016-07-04] MEDS: Aspirin Enteric Coated 81 MG Tablet PO SCH (09:12)
[2016-07-04] MEDS: *HR* OxyCODONE Immed Rel 5 MG TABLET PO PRN (09:12)
[2016-07-04] MEDS: Nicotine 21 MG PATCH.TD24 TD SCH (09:13)
[2016-07-04] MEDS: 0.9 % Sodium Chloride 1,000 ML IVC SCH ×2 (09:20→17:08)
--- NOTE | 2016-07-04 14:52 | Internal Med Progress Note ---
Date of Encounter: 07/04/16 Time of Encounter: 09:30 (and 1415) - Assessment and plan (1) Abdominal pain Current Visit: Yes Status: Acute Assessment and plan: GI is on board who performed an EGD last night revealing gastritis with reocmmendation to initiate PPI and Carafate and have cleared her otherwise for outpatient followup and possible EUS. Abdominal pelvic CTA concerning for large choledochocele. MRCP revealing choledochocyst. Her pain is uncontrolled; will increase pain medication and continue to observe. Not safe to be discharged today given severe amount of pain requiring IV pain medication. ITS Impressions Abdomen/Pelvis CTA 07/02/16 00:00 Chest CTA 07/02/16 19:45 IMPRESSION: Negative for aortic dissection Multiple pulmonary nodules suspicious for neoplasm or metastatic disease. Findings suspicious for large choledochocele ERCP or MRCP is recommended for further evaluation. Fatty liver Large ventral hernia without contained bowel D/ / Ish Aj MD / Ish Aj MD Interpreting Provider: Ish Aj MD Abdomen MRI 07/03/16 10:03 IMPRESSION: 1. Prior cholecystectomy with no focal gallbladder fossa abnormality or intrahepatic biliary dilatation. 2. There is a 1.8 cm dilatation of the proximal common bile duct which tapers to 5 mm of the distal aspect. 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 3. No acute abnormality. D/ / 07/03/2016 14:44:36 Marco Dillard MD / keisha Interpreting Provider: Marco Dillard MD Qualifiers: Abdominal location: right upper quadrant Qualified Code(s): R10.11 - Right upper quadrant pain (2) Chest pain Current Visit: Yes Status: Resolved Assessment and plan: Patient denies chest pain at this time. No ECG changes, troponin negative, do not suspect ACS. Qualifiers: Chest pain type: unspecified Qualified Code(s): R07.9 - Chest pain, unspecified (3) Choledochocele Current Visit: Yes Status: Acute (4) Dilated cbd, acquired Current Visit: Yes Status: Acute (5) Lung nodule Current Visit: Yes Status: Chronic Assessment and plan: In review of her chart, lung nodules were noted last year. In August 2015 she had a PET scan that was unremarkable. 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 Patient has followed up with pulmonology Dr. Suarez. She currently denies shortness of breath above her norm. (6) Mass of right ear canal Current Visit: Yes Status: Acute Assessment and plan: Seen by ENT doctor Rosalva who has cleared her for outpatient follow-up and diagnosed her with a tympanic membrane perforation. 07/03/16 CT revealing possible mastoiditis, we will initiate Cipro and consult ENT. Patient is afebrile, no leukocytosis. Clinical suspicion for mastoiditis low however will appreciate ENT consultation. ITS Impressions Internal Auditory Canal CT 07/03/16 12:00 IMPRESSION: Small amount of fluid in the right mastoid air cells which may be seen with mastoiditis. Minimal bilateral ethmoid sinus disease. D/ / Ish Aj MD / Ish Aj MD Interpreting Provider: Ish Aj MD (7) CAD (coronary artery disease) Current Visit: Yes Status: Chronic Assessment and plan: Patient denies chest pain or shortness of breath. Qualifiers: Coronary Disease-Associated Artery/Lesion type: [place] artery [place] vs. transplanted heart: [place] heart Associated angina: with unstable angina Qualified Code(s): I25.110 - Atherosclerotic heart disease of [place] coronary artery with unstable angina pectoris (8) HTN (hypertension) Current Visit: Yes Status: Chronic Assessment and plan: Controlled, hypotensive at times even though her lisinopril has been held and her metoprolol dosage was decreased; will continue to monitor and adjust medications as indicated. Qualifiers: Hypertension type: essential hypertension Qualified Code(s): I10 - Essential (primary) hypertension (9) Tobacco abuse Current Visit: Yes Status: Chronic Assessment and plan: NRT (10) Hyperlipemia Current Visit: No Status: Chronic Assessment and plan: Lipid panel abnormal, will initiate statin - Subjective Interval history: Patient is seen and examined. On examination earlier this morning, patient was miserable complaining of severe head and abdominal pain as well as severe nausea. Patient then see in and reexamined later on in the afternoon and she remained miserable with a severe headache and nausea that is not abated by Zofran. She states she is only been able to eat just a little bit and is limited secondary to severe abdominal pain. - Constitutional Vitals: Temp Pulse Resp BP Pulse Ox 98.4 F 95 16 109/64 93 L 07/04/16 11:10 07/04/16 11:10 07/04/16 11:10 07/04/16 11:10 07/04/16 11:10 General appearance: Present: mild distress (2/2pain), A&O X 3, pleasant, answers questions appropriately - Head Head exam: Present: atraumatic, normocephalic - Eye Eye exam: Present: PERRL, conjuntiva pink, sclera anicteric Pupils: Present: PERRL - Neck Neck exam general surgery: Present: supple, trachea midline. Absent: lymphadenopathy - Respiratory Respiratory exam: Present: CTAB. Absent: accessory muscle use, rales, respiratory distress, rhonchi, wheezes - Cardiovascular Cardiovascular exam: Present: RRR, +S1, +S2. Absent: diastolic murmur, gallop, rubs, systolic murmur - GI/Abdominal GI/Abdominal exam: Present: normal bowel sounds, soft, tenderness, no peritoneal signs. Absent: distended - Extremities Exam Extremities exam: Present: warm, radial pulses palpable and symetrical. Absent : calf tenderness, cyanotic, pedal edema - Neurological Exam Neurological exam: Present: alert, CN II-XII intact, oriented X3, no focal deficits, strengths equal and symetr throughout. Absent: pronater drift, facial droop, speech deficit - Skin Skin exam: Present: diaphoretic, intact, pallor, warm Internal Medicine: Result - Labs CBC & Chem 7: 07/03/16 03:51 07/03/16 03:51 - ABG Interpretation ABG results: PT/INR, D-dimer PT 10.9 Seconds (9.4-12.1) 07/02/16 20:09 - Impressions Impressions Abdomen MRI 07/03/16 10:03 IMPRESSION: 1. Prior cholecystectomy with no focal gallbladder fossa abnormality or intrahepatic biliary dilatation. 2. Stable 1.7 cm dilatation of the proximal common bile duct which tapers to 5 mm of the distal aspect. This is unchanged compared with prior CT abdomen 12/06/2008 and may represent a type 1 choledochal cyst. 3. No acute abnormality. D/ / 07/03/2016 14:44:36 Marco Dillard MD / keisha Interpreting Provider: Marco Dillard MD Consult Discharge Plan - Plan Referrals: Ronda Zuniga DO [Primary Care Provider] -
--- NOTE | 2016-07-04 16:14 | Electrocardiograph Report ---
[facility] Test Date: 2016-07-03 Pat Name: CHRISTY THURMAN Department: 115 Room: 3B37 Gender: F Home Hospice Aide: BLAS : 1960 Requested By: Pao Lamb Order Number: [id number] Reading MD: Renetta Sanchez Measurements Intervals [place] Rate: 82 P: 45 NM: 146 QRS: 7 QRSD: 96 T: 29 QT: 380 QTc: 419 Interpretive Statements SINUS RHYTHM Electronically Signed On 07-04-16 16:11:27 EST by Renetta Sanchez
[2016-07-04 17:25] LABS: Bilirubin,Urine Negative (Negative); Blood,Urine Negative (Negative); Clarity,Urine Clear (Clear); Color,Urine Yellow (Yellow); Glucose,Urine (UA) Normal (Normal); Ketones,Urine Negative (Negative); Leukocyte Esterase,Urine Negative (Negative); Nitrite,Urine Negative (Negative); PH,Urine 5.5 pH Units (5.0-8.0); Protein,Urine Negative (Neg-Trace); Specific Gravity,Urine 1.009 (1.010-1.025); Urobilinogen,Urine Normal (Normal)
[2016-07-04] MEDS: *HR* Promethazine 25 MG/ML VIAL IVP PRN (17:47)
[2016-07-05] MEDS: *HR* HYDROmorphone (PF) 1 MG/ML SYRINGE IVP PRN ×3 (00:14→08:27)
[2016-07-05] MEDS: 0.9 % Sodium Chloride 1,000 ML IVC SCH (00:25)
[2016-07-05] MEDS: *HR* OxyCODONE Immed Rel 5 MG TABLET PO PRN (01:13)
[2016-07-05] MEDS: *HR* Promethazine 25 MG/ML VIAL IVP PRN (05:25)
[2016-07-05 07:08] VITALS: BP 134/76
[2016-07-05 07:13] LABS: BUN/Creatinine Ratio 16 (6-26); Blood Urea Nitrogen 14 mg/dL (7-20); Calcium 8.7 mg/dL (8.6-10.8); Carbon Dioxide 18 mEq/L (19-29); Chloride 113 mEq/L (98-109); Glucose 127 mg/dL (70-99); Osmolality,Calculated 290 (280-300); Potassium 4.1 mEq/L (3.5-4.5); Sodium 139 mEq/L (136-145); eGFR For African Americans > 60 (> 60); eGFR For Non-African Americans > 60 (> 60)
[2016-07-05] MEDS: Nicotine 21 MG PATCH.TD24 TD SCH (08:21)
[2016-07-05] MEDS: Aspirin Enteric Coated 81 MG Tablet PO SCH (08:22)
[2016-07-05] MEDS ORDERED: Ketorolac 30 MG/ML VIAL IVP ONE (08:23)
--- NOTE | 2016-07-05 08:28 | Discharge Summary ---
Date of Encounter: 07/05/16 Time of Encounter: 08:26 - Discharge Diagnosis (1) Abdominal pain Priority: Primary Status: Acute Qualifiers: Abdominal location: right upper quadrant Qualified Code(s): R10.11 - Right upper quadrant pain (2) Gastritis Priority: Primary Status: Acute Qualifiers: Gastritis type: other gastritis Chronicity: acute Gastritis bleeding: without bleeding Qualified Code(s): K29.00 - Acute gastritis without bleeding (3) Choledochocele Priority: Secondary Status: Acute (4) Cephalgia Priority: Primary Status: Acute Qualifiers: Headache type: other vascular headache Qualified Code(s): G44.1 - Vascular headache, not elsewhere classified (5) 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 Qualifiers: Laterality: right Qualified Code(s): H72.01 - Central perforation of tympanic membrane, right ear (6) Chronic sinusitis Priority: Secondary Status: Chronic Qualifiers: Sinusitis location: ethmoidal Qualified Code(s): J32.2 - Chronic ethmoidal sinusitis (7) Tobacco abuse Priority: Secondary Status: Chronic (8) HTN (hypertension) Priority: Secondary Status: Chronic Qualifiers: Hypertension type: essential hypertension Qualified Code(s): I10 - Essential (primary) hypertension (9) CAD (coronary artery disease) Priority: Secondary Status: Chronic Qualifiers: Coronary Disease-Associated Artery/Lesion type: [place] artery [place] vs. transplanted heart: [place] heart Associated angina: without angina Qualified Code(s): I25.10 - Atherosclerotic heart disease of [place] coronary artery without angina pectoris - Discharge Medications Prescriptions: OxyCODONE Immed Rel [Roxicodone 5 MG] 5 - 10 mg PO Q6HR PRN #20 tablet PRN Reason: Moderate Pain Atorvastatin [Lipitor] 40 mg PO HS #30 tablet Fluticasone Propionate Nasal [Flonase] 50 mcg NS DAILY #1 bottle GuaiFENesin ER [Mucinex] 1,200 mg PO BID #120 tbbp.12hr Nicotine Patch [Nicoderm] 21 mg TD DAILY #30 patch.td24 Omeprazole 40 mg PO BID #120 tablet. Sucralfate [Carafate] 1 gm PO BID #60 udc Home Medications: Albuterol Neb [Proventil Neb] 2.5 mg IH TID PRN 07/03/16 [History] Albuterol Sulfate [Albuterol Inhaler] 2 puff IH Q4H PRN 07/03/16 [History] Lisinopril [Zestril] 20 mg PO DAILY 07/03/16 [History] Metoprolol Tartrate 25 mg PO BID 07/03/16 [History] Nortriptyline [Pamelor] 30 mg PO HS 07/03/16 [History] Trazodone HCl 100 mg PO HS 07/03/16 [History] Aspirin Enteric Coated [Aspirin EC] 81 mg PO DAILY tablet. 07/05/16 [Rx] Atorvastatin [Lipitor] 40 mg PO HS #30 tablet 07/05/16 [Rx] Fluticasone Propionate Nasal [Flonase] 50 mcg NS DAILY #1 bottle 07/05/16 [Rx] GuaiFENesin ER [Mucinex] 1,200 mg PO BID #120 tbbp.12hr 07/05/16 [Rx] Nicotine Patch [Nicoderm] 21 mg TD DAILY #30 patch.td24 07/05/16 [Rx] Omeprazole 40 mg PO BID #120 tablet. 07/05/16 [Rx] OxyCODONE Immed Rel [Roxicodone 5 MG] 5 - 10 mg PO Q6HR PRN #20 tablet 07/05/16 [Rx] Oxymetolazine HCl [Afrin] 1 spray NS Q12HR bottle 07/05/16 [Rx] Sucralfate [Carafate] 1 gm PO BID #60 udc 07/05/16 [Rx] Allergies/Adverse Reactions: Allergies No Known Allergies Allergy (Verified 08/16/15 16:01) Procedures/tests Complete & Pending: Procedures Performed prior 72 hours Category Date Time Status CT internal auditory canals BI [CT] Stat Cat Scan 07/03/16 12:[address] without Contrast [CT head/brain wo con] [CT] Cat Scan 07/04/16 14:54 Completed Stat MR abdomen wo con [MR] Stat MRI 07/03/16 10:03 Completed ECG 12 lead ECG [ECG] Routine Y 07/03/16 23:35 Completed Date of admission: 07/02/16 23:06 Primary care physician: Ronda Zuniga, Consults: 07/03/16 15:21 Consult to ENT [CONS] Routine Consulting Provider: [facility] Reason for Consult: possible mastoiditis on imaging Call Completed: No Discharging clinician: Grey Sloan Anticipated date of discharge: 07/05/16 - Patient Status Disposition: Home, Self-Care Condition: Good Functional capacity at discharge: independent ambulation Overall status at discharge: patient is progressing back to baseline - Discharge Instructions Follow Up With: Ronda Zuniga DO [Primary Care Provider] - 07/07/16 4:00 pm - Diet and Activity Activity: resume usual activities as tolerated Diet: advance to your usual diet Hospital course: Ms. Perdue is a 56 year old female with hx of CAD s/p stent presented to ED with chest pain. She was subsequently placed in observation for further evaluation and treatment. Ms. Perdue was placed in observation. Initial workup revealed choledochal cyst. She was evaluated by GI and underwent EGD which showed gastritis. She was started on Carafate and PPI increased. She continued to have severe headache and there was a concern for mastoiditis. She was seen by ENT and found to have R tympanic membrane perforation. She had CT of head which showed no bleed but chronic changes in ethmoid sinuses. On 07/05 she was still having a headache but overall was stable. She had no fever and vitals were stable. She was started on 3 days of Afrin as well as Flonase. She will be discharged home and continued on these meds and abx. Time spent discussing smoking cessation with patient: 3 to 10 minutes - Time Spent with Patient Total time spent providing and/or coordinating discharge services: 35min - Constitutional Vitals: Temp Pulse Resp BP Pulse Ox 98.0 F 80 17 134/76 94 L 07/05/16 07:04 07/05/16 07:04 07/05/16 07:04 07/05/16 07:04 07/05/16 07:04 General appearance: Present: mild distress (2/2pain), A&O X 3, pleasant, answers questions appropriately - Head Head exam: Present: atraumatic, normocephalic - Eye Eye exam: Present: normal appearance, conjuntiva pink Pupils: Present: PERRL - ENT ENT exam: Present: mucous membranes moist - Respiratory Respiratory exam: Present: CTAB. Absent: rales, wheezes - Cardiovascular Cardiovascular exam: Present: RRR. Absent: systolic murmur, tachycardia - GI/Abdominal GI/Abdominal exam: Present: soft. Absent: mass, tenderness - Extremities Exam Extremities exam: Present: full ROM, warm. Absent: pedal edema - Neurological Exam Neurological exam: Present: alert, CN II-XII intact, no focal deficits, strengths equal and symetr throughout - Skin Skin exam: Present: dry, warm. Absent: rash
[2016-07-05 08:40] LABS: Basophils # 0.1 K/mcL (0.0-0.2); Basophils % 0.8 %; Eosinophils # 0.2 K/mcL (0.0-0.6); Eosinophils % 2.6 %; Hemoglobin 10.8 g/dL (11.5-15.4); Immature Granulocytes % 0.7 % (0-4); Lymphocytes # 3.2 K/mcL (0.6-4.6); Lymphocytes % 38.2 %; Mean Corpuscular HGB Conc 32.7 g/dL (31.6-35.5); Mean Corpuscular Hemoglobin 29.6 pg (28.0-33.3); Mean Platelet Volume 11.5 fL (9.4-12.4); Monocytes # 0.8 K/mcL (0.0-1.3); Monocytes % 9.9 %; Platelet Count 256 K/mcL (140-400); Red Blood Count 3.65 M/mcL (3.82-4.97); Red Cell Distribution Width 12.7 % (11.5-14.5); Segmented Neutrophils % 47.8 %
[2016-07-05 08:46] LABS: Mean Corpuscular Volume 90.4 fL (83.0-100.0)
[2016-07-05] MEDS ORDERED: Fluticasone Propionate Nasal 50 MCG/SPRAY BOTTLE NS SCH (09:00)
[2016-07-05] MEDS ORDERED: Oxymetazoline Nasal SPRAY BOTTLE NS SCH (18:00)
== END 2016-07-05 12:17 | disposition home or self-care (01) ==
LOC: 3BNU 19:27 → EMEROO 19:27 → SUATTDRO 23:06 → 3BNU 23:31
PROVIDERS: ADMIT Internal Medicine; ATTEND Internal Medicine
PROC: ENDOEBX (2016-07-03 18:00)

== ENCOUNTER 2018-03-14 14:30 | Inpatient (IN) ==
[2018-03-14] MEDS: OXYCODONE Oral CONC 10 MG/0.5 ML ORAL.SYG SL PRN ×2 (18:05→22:26)
[2018-03-14] MEDS: *HR* Heparin 5,000 UNIT/ML VIAL SQ SCH (18:05)
[2018-03-14] MEDS: D5% in 0.45% NACL w KCl 20 MEQ/1,000 ML MLS IVC SCH (18:05)
[2018-03-14] MEDS ORDERED: *HR* Morphine 2 MG/ML SYRINGE IVP ONE (18:25)
[2018-03-14] MEDS ORDERED: *HR* LORazepam 2 MG/ML VIAL IVP PRN (18:34)
--- NOTE | 2018-03-14 18:38 | General Surg History&Physical ---
Date of Encounter: 03/14/18 Time of Encounter: 18:20 Assessment and Plan (1) Small bowel obstruction Current Visit: Yes Status: Acute The assessment and plan as outlined above was discussed with the patient and/or family members who expressed understanding and agreement. All questions were answered. The patient appears to have high-grade partial small bowel obstruction. She will be placed on bowel rest made nothing by mouth and given IV fluids for hydration as well as nasogastric tube drainage. Her pain will be treated her nausea will be treated. She does have coronary artery disease and hypertension and I think she would benefit from scheduled beta neeta therapy which I have ordered. History of Present Illness Chief complaint: Abdominal pain and nausea HPI: Ms. Perdue is a 58 year old female The patient has developed abdominal pain over the last few days as well as severe nausea and vomiting. She has not had previous episodes of this nature. She said that she had high-volume vomiting. She sought evaluation in the emergency room at [facility]. A CAT scan of the abdomen demonstrated high- grade partial bowel obstruction with a possible transition point in the pelvis. She is transferred to [facility] for further care and evaluation. I saw the patient this evening she is complaining of lower abdominal pain associated with severe nausea. She is already been treated with oxycodone. I will add 4 mg of morphine to try and break the pain cycle. I will plan nasogastric tube drainage and aggressive hydration to treat her high-grade partial small bowel obstruction. If this does not resolve, exploratory laparotomy will be required. The patient previously had cholecystectomy and appendectomy and total abdominal hysterectomy. These are all remote in history. I personally reviewed the CAT scan images and agree with the findings of dilated proximal small bowel with flaccid distal small bowel, however, there is stool throughout the colon indicating a partial bowel obstruction. Past Med Surg Social Fam HX - Past Medical History Medical history: coronary artery disease, GERD, hyperlipidemia, hypertension, kidney stones, myocardial infarction, other Additional medical history: CEREBRAL ANEURYSM Psychiatric history: anxiety, depression - Past Surgical History Surgical History: appendectomy, cholecystectomy, hysterectomy Additional surgical history: Ride side aneurysm repair - Social History Smoking Status: Current every day smoker Smokeless Tobacco Status: No Alcohol use: none Drug use: none - Family History Mother Living Status: Hx Family Endocrine Disorder: Yes (DM) Father Living Status: Hx Family Cardiac Disorders: Yes (stroke) Medications and Allergies Escitalopram [Lexapro] 20 mg PO DAILY 08/18/17 [History] Gabapentin [Neurontin] 300 mg PO TID 08/18/17 [History] traZODone [TraZODone] 200 mg PO HS 08/18/17 [History] Gabapentin [Neurontin] 300 mg PO HS 03/14/18 [History] 3 Allergy/AdvReac Type Severity Reaction Status Date / Time No Known Allergies Allergy Verified 09/23/17 16:09 Review of Systems All systems PM: The remainder of the systems were reviewed and are negative General Surgery Exam Initial Vital Signs Temp Pulse Resp BP Pulse Ox 97.7 F 91 16 107/72 91 03/14/18 17:36 03/14/18 17:36 03/14/18 17:36 03/14/18 17:36 03/14/18 17:36 - General physical appearance well developed, well nourished, moderate pain - Neck no masses, no bruits, trachea midline, no lymphadectomy, no venous distension - Respiratory normal expansion, normal respiratory effort, clear to percussion, clear to auscultation - Cardiovascular Cardiovascular exam: Present: RRR, no murmurs/rubs/gallops - Abdomen Abdomen general surgery: Present: bowel sounds present, soft (Mild lower abdominal tenderness. No guarding no rebound) - Neurologic Present: CN 2-12 grossly intact, normal coordination, normal sensation - Psychiatric Psychiatric general surgery: Present: appropriate, oriented to person, oriented to place, oriented to time, speech is normal, memory intact Results - Labs All other labs normal. - Imaging CT scan - abdomen: image reviewed (I personally reviewed the CAT scan images. She does have dilated proximal small bowel and flaccid distal small bowel with an apparent transition point in the pelvis. There is no associated mass that I can identify no associated ascites. There is stool in the colon indicating partial bowel obstruction.)
[2018-03-14] MEDS: Ondansetron 4 MG/2 ML VIAL IVP PRN (22:47)
[2018-03-15] MEDS: *HR* Morphine 2 MG/ML SYRINGE IVP PRN ×6 (00:37→15:38)
[2018-03-15] MEDS: *HR* Metoprolol 5 MG/5 ML VIAL IVP SCH ×4 (00:39→17:53)
[2018-03-15] MEDS: Ondansetron 4 MG/2 ML VIAL IVP PRN ×2 (03:05→10:32)
[2018-03-15] MEDS: *HR* Heparin 5,000 UNIT/ML VIAL SQ SCH ×2 (05:33→17:53)
[2018-03-15] MEDS: D5% in 0.45% NACL w KCl 20 MEQ/1,000 ML MLS IVC SCH ×3 (05:33→21:39)
[2018-03-15 06:09] LABS: Basophils % 0.4 %; Eosinophils # 0.2 K/mcL (0.0-0.6); Eosinophils % 2.6 %; Hematocrit 35.1 % (35.3-44.9); Hemoglobin 11.3 g/dL (11.5-15.4); Immature Granulocytes % 0.1 % (0-4); Lymphocytes # 2.9 K/mcL (0.6-4.6); Lymphocytes % 40.3 %; Mean Corpuscular HGB Conc 32.2 g/dL (31.6-35.5); Mean Corpuscular Hemoglobin 28.3 pg (28.0-33.3); Mean Corpuscular Volume 87.8 fL (83.0-100.0); Mean Platelet Volume 11.7 fL (9.4-12.4); Monocytes # 0.8 K/mcL (0.0-1.3); Monocytes % 10.9 %; Neutrophils # 3.3 K/mcL (1.6-8.9); Platelet Count 248 K/mcL (140-400); Red Cell Distribution Width 14.5 % (11.5-14.5); Segmented Neutrophils % 45.7 %
[2018-03-15 06:26] LABS: BUN/Creatinine Ratio 24 (6-26); Blood Urea Nitrogen 20 mg/dL (6-20); Calcium 9.3 mg/dL (8.6-10.3); Carbon Dioxide 27 mEq/L (23-29); Chloride 107 mEq/L (98-107); Glucose 125 mg/dL (70-105); Osmolality,Calculated 294 (280-300); Potassium 3.5 mEq/L (3.5-5.1); Sodium 140 mEq/L (136-145); eGFR For Non-African Americans > 60 (> 60)
--- NOTE | 2018-03-15 08:03 | General Surgery Progress Note ---
<Magdalena Barton - Last Filed: 03/15/18 08:01> Date of Encounter: 03/15/18 Time of Encounter: 08:01 - Assessment and Plan (1) Small bowel obstruction Current Visit: Yes Status: Acute DDx ilieus v gastroenteritis, with absent bowel sounds difficult to differentiate on exam - no surgical intervention planned at this time - NPO - RATER ASSOCIATE suction - IVF maintenance fluids - cautiously continue oxycodone 10 mg sl PRN for pain and breakthrough morphine 4 mg IV q 2 and (2) CAD (coronary artery disease) Current Visit: No Status: Chronic History of [place] not anti coagulated at home - Lopressor 5 mg IVP q 6 Qualifiers: Coronary Disease-Associated Artery/Lesion type: [place] artery [place] vs. transplanted heart: [place] heart Associated angina: without angina Qualified Code(s): I25.10 - Atherosclerotic heart disease of [place] coronary artery without angina pectoris (3) HTN (hypertension) Current Visit: No Status: Chronic see CAD Qualifiers: Hypertension type: essential hypertension Qualified Code(s): I10 - Essential (primary) hypertension (4) Anxiety Current Visit: Yes Status: Chronic - hold home Lexapro and trazodone - Ativan 2 mg q 6hr prn (5) DVT prophylaxis Current Visit: Yes Status: Acute heparin sq Subjective Patient reports: still having pain, no flatus, no bowel movement, nausea (black out put from NG, no vomiting), afebrile Objective Vital Signs - Last 8 Hours Temp Pulse Resp BP Pulse Ox 03/15/18 06:56 97.4 F L 75 16 128/67 91 03/15/18 05:07 98.1 F 79 16 120/71 94 03/15/18 01:10 98.2 F 88 16 124/73 90 Intake and Output 03/14/18 03/15/18 03/15/18 23:59 07:59 15:59 Intake Total 0 / 0 1000 / 1000 Output Total 1450 / 1450 2049 Balance -1450 / -1450 -1050 / -1050 Intake: IV Fluids 1000 / 1000 KCl 20mEq IN D5%-0.45 NACL 20 1000 / 1000 meq In 1,000 ml @ 125 mls/hr IVC .Q8H [facility] Rx#:[id number] Oral 0 / 0 0 / 0 Output: Urine 0 / 0 0 / 0 Gastric Tube Lavage Amount 700 / 700 2049 Left Nare 700 / 700 2049 Gastric Drainage 750 / 750 Other: # Voids 1 Weight 78.018 kg 78 kg Blood Glucose* 119 Patient Weight 03/15/18 23:59 Weight 78 kg - General physical appearance well developed, well nourished, moderate distress - Eyes normal ocular movement - ENT normal pinna, normal nares, normal mucosa - Respiratory normal expansion, normal respiratory effort, clear to auscultation - Cardiovascular Cardiovascular exam: Present: RRR, no murmurs/rubs/gallops - Abdomen Abdomen: Present: soft, tender Abdominal Tenderness: RLQ, LLQ Hernia: none Additional Comments: decreased bowel sounds moaning in pain but falls asleep during exam - Integumentary no rash, no growths, no abnormal pigmentation - Neurologic normal coordination, normal sensation - Musculoskeletal normal posture - Psychiatric oriented to time, oriented to person, oriented to place, other (speech slurred, unable to answer questions correctly) - Labs 03/15/18 05:56 03/15/18 05:56 Diabetes panel 03/15/18 Range/Units 05:56 Sodium 140 (136-145) mEq/L Potassium 3.5 (3.5-5.1) mEq/L Chloride 107 (98-107) mEq/L Carbon Dioxide 27 (23-29) mEq/L BUN 20 (6-20) mg/dL Creatinine 0.85 (0.60-1.20) mg/dL Glucose 125 H (70-105) mg/dL Calcium 9.3 (8.6-10.3) mg/dL Calcium panel 03/15/18 Range/Units 05:56 Calcium 9.3 (8.6-10.3) mg/dL Pituitary panel 03/15/18 Range/Units 05:56 Sodium 140 (136-145) mEq/L Potassium 3.5 (3.5-5.1) mEq/L Chloride 107 (98-107) mEq/L Carbon Dioxide 27 (23-29) mEq/L BUN 20 (6-20) mg/dL Creatinine 0.85 (0.60-1.20) mg/dL Glucose 125 H (70-105) mg/dL Calcium 9.3 (8.6-10.3) mg/dL Adrenal panel 03/15/18 Range/Units 05:56 Sodium 140 (136-145) mEq/L Potassium 3.5 (3.5-5.1) mEq/L Chloride 107 (98-107) mEq/L Carbon Dioxide 27 (23-29) mEq/L BUN 20 (6-20) mg/dL Creatinine 0.85 (0.60-1.20) mg/dL Glucose 125 H (70-105) mg/dL Calcium 9.3 (8.6-10.3) mg/dL Consult Discharge Plan - Plan Referrals: NONE,PCP [Primary Care Provider] - <Kvng Beebe - Last Filed: 03/15/18 14:24> Date of Encounter: 03/15/18 - Assessment and Plan (1) Small bowel obstruction Current Visit: Yes Status: Inactive Objective Vital Signs - Last 8 Hours Temp Pulse Resp BP Pulse Ox 03/15/18 10:45 98.3 F 81 16 117/77 93 03/15/18 06:56 97.4 F L 75 16 128/67 91 Intake and Output 03/14/18 03/15/18 03/15/18 23:59 07:59 15:59 Intake Total 0 / 0 1000 / 1000 970 / 970 Output Total 1450 / 1450 2049 350 / 350 Balance -1450 / -1450 -1050 / -1050 620 / 620 Intake: IV Fluids 1000 / 1000 970 / 970 KCl 20mEq IN D5%-0.45 NACL 20 1000 / 1000 970 / 970 meq In 1,000 ml @ 125 mls/hr IVC .Q8H [facility] Rx#:[id number] Oral 0 / 0 0 / 0 0 / 0 Output: Urine 0 / 0 0 / 0 Gastric Tube Lavage Amount 700 / 700 2049 Left Nare 700 / 700 2049 Gastric Drainage 750 / 750 350 / 350 Other: Meal NPO Percent of Meal Consumed 0% # Voids 1 2 Weight 78.018 kg 78 kg Blood Glucose* 119 120 Patient Weight 03/15/18 23:59 Weight 78 kg - Labs 03/15/18 05:56 03/15/18 05:56 Diabetes panel 03/15/18 Range/Units 05:56 Sodium 140 (136-145) mEq/L Potassium 3.5 (3.5-5.1) mEq/L Chloride 107 (98-107) mEq/L Carbon Dioxide 27 (23-29) mEq/L BUN 20 (6-20) mg/dL Creatinine 0.85 (0.60-1.20) mg/dL Glucose 125 H (70-105) mg/dL Calcium 9.3 (8.6-10.3) mg/dL Calcium panel 03/15/18 Range/Units 05:56 Calcium 9.3 (8.6-10.3) mg/dL Pituitary panel 03/15/18 Range/Units 05:56 Sodium 140 (136-145) mEq/L Potassium 3.5 (3.5-5.1) mEq/L Chloride 107 (98-107) mEq/L Carbon Dioxide 27 (23-29) mEq/L BUN 20 (6-20) mg/dL Creatinine 0.85 (0.60-1.20) mg/dL Glucose 125 H (70-105) mg/dL Calcium 9.3 (8.6-10.3) mg/dL Adrenal panel 03/15/18 Range/Units 05:56 Sodium 140 (136-145) mEq/L Potassium 3.5 (3.5-5.1) mEq/L Chloride 107 (98-107) mEq/L Carbon Dioxide 27 (23-29) mEq/L BUN 20 (6-20) mg/dL Creatinine 0.85 (0.60-1.20) mg/dL Glucose 125 H (70-105) mg/dL Calcium 9.3 (8.6-10.3) mg/dL - Attending Attestation I examined this patient and my medical decision-making was reviewed with the Resident Physician. I agree with the documented findings, disposition and treatment plan as described except to the extent set forth below. The patient is seen on morning rounds with the medical student, resident, and clinical nurse practitioner. She continues to have pain associated with high- grade partial bowel obstruction. She had a large amount of nasogastric tube overnight. We will continue bowel rest today. She may require exploratory laparotomy if the bowel obstruction does not clear continue supportive care. Kvng Beebe MD FACS
[2018-03-15] MEDS: Chloraseptic Spray 177 ML BOTTLE MM PRN ×2 (10:38→17:53)
[2018-03-15] MEDS: OXYCODONE Oral CONC 10 MG/0.5 ML ORAL.SYG SL PRN ×2 (13:24→20:24)
[2018-03-15] MEDS ORDERED: Ketorolac 15 MG/ML VIAL IVP SCH ×2 (16:26→20:15)
[2018-03-15] MEDS ORDERED: Acetaminophen IV 1,000 MG/100 ML INFUS..BTL IVPB SCH (18:00)
--- NOTE | 2018-03-15 18:26 | Event Note ---
Date of Encounter: 03/15/18 Time of Encounter: 18:24 Asked to evaluate the patient due to her pain which was thought to be out of proportion to physical exam findings. Review it appears that her stated pain level is anywhere between 8-10 (or not able to be assessed because she has been sleeping per the nurse's notes). On entering the room the patient is sitting up using her iPhone however it is only upon my initial introduction that she starts to moan when talking. She states that she just received a dosage of pain medication and the previous dosage was approximately 3:30 PM. She states that her pain is now under better control and denies any flatus. She has some scant bowel sounds on examination with tenderness noted in the lower abdomen. The NG tube is functioning and bilious output is noted. Continue with NG tube decompression. Laboratories are stable and will be followed. Her subjective pain level makes determining the effectiveness of current therapy challenging, however I do agree that in several therapies the most appropriate continued course.
[2018-03-15] MEDS: Acetaminophen IV 1,000 MG/100 ML INFUS..BTL IVPB SCH (18:56)
[2018-03-15] MEDS: Ketorolac 15 MG/ML VIAL IVP SCH (22:43)
[2018-03-16] MEDS: Acetaminophen IV 1,000 MG/100 ML INFUS..BTL IVPB SCH ×5 (00:29→23:26)
[2018-03-16] MEDS: *HR* Metoprolol 5 MG/5 ML VIAL IVP SCH ×2 (00:29→05:56)
[2018-03-16] MEDS: Ketorolac 15 MG/ML VIAL IVP SCH ×4 (04:19→21:07)
[2018-03-16] MEDS: *HR* Heparin 5,000 UNIT/ML VIAL SQ SCH ×2 (05:57→18:20)
[2018-03-16] MEDS: D5% in 0.45% NACL w KCl 20 MEQ/1,000 ML MLS IVC SCH ×3 (06:00→18:21)
[2018-03-16 07:16] LABS: BUN/Creatinine Ratio 18 (6-26); Blood Urea Nitrogen 15 mg/dL (6-20); Calcium 9.2 mg/dL (8.6-10.3); Carbon Dioxide 26 mEq/L (23-29); Chloride 105 mEq/L (98-107); Glucose 120 mg/dL (70-105); Osmolality,Calculated 286 (280-300); Potassium 3.9 mEq/L (3.5-5.1); Sodium 137 mEq/L (136-145); eGFR For Non-African Americans > 60 (> 60)
[2018-03-16] MEDS: Ondansetron 4 MG/2 ML VIAL IVP PRN ×2 (08:16→18:20)
[2018-03-16] MEDS: OXYCODONE Oral CONC 10 MG/0.5 ML ORAL.SYG SL PRN ×2 (08:24→12:47)
[2018-03-16 08:52] LABS: Basophils % 0.4 %; Eosinophils # 0.1 K/mcL (0.0-0.6); Hematocrit 35.2 % (35.3-44.9); Hemoglobin 11.3 g/dL (11.5-15.4); Immature Granulocytes % 0.1 % (0-4); Lymphocytes # 2.2 K/mcL (0.6-4.6); Lymphocytes % 30.5 %; Mean Corpuscular HGB Conc 32.1 g/dL (31.6-35.5); Mean Corpuscular Hemoglobin 27.9 pg (28.0-33.3); Mean Corpuscular Volume 86.9 fL (83.0-100.0); Mean Platelet Volume 12.2 fL (9.4-12.4); Monocytes # 0.8 K/mcL (0.0-1.3); Monocytes % 11.2 %; Neutrophils # 3.9 K/mcL (1.6-8.9); Platelet Count 245 K/mcL (140-400); Red Blood Count 4.05 M/mcL (3.82-4.97); Segmented Neutrophils % 55.8 %
--- NOTE | 2018-03-16 09:13 | General Surgery Progress Note ---
<Magdalena Barton - Last Filed: 03/16/18 11:37> Date of Encounter: 03/16/18 Time of Encounter: 09:10 - Assessment and Plan (1) Small bowel obstruction Current Visit: Yes Status: Suspected More likely enteritis; SBFT showed no signs of small bowel obstruction or stricture with normal transit time - pull NG - start clears - IVF maintenance fluids - added IV Toradol and acetaminophen late yesterday, continue oxycodone PRN and breakthrough morphine cautiously (2) Abdominal pain Current Visit: No Status: Acute Qualifiers: Abdominal location: generalized Qualified Code(s): R10.84 - Generalized abdominal pain (3) CAD (coronary artery disease) Current Visit: No Status: Chronic -Continue Lopressor 5 mg IVP q 6 Qualifiers: Coronary Disease-Associated Artery/Lesion type: [place] artery [place] vs. transplanted heart: [place] heart Associated angina: without angina Qualified Code(s): I25.10 - Atherosclerotic heart disease of [place] coronary artery without angina pectoris (4) HTN (hypertension) Current Visit: No Status: Chronic Elevated this morning - hydralazine prn SBP > 160, IV while NG placed Qualifiers: Hypertension type: essential hypertension Qualified Code(s): I10 - Essential (primary) hypertension (5) Anxiety Current Visit: Yes Status: Chronic - hold home Lexapro and trazodone - Ativan 2 mg q 6hr prn (6) DVT prophylaxis Current Visit: Yes Status: Acute heparin sq Subjective Patient reports: still having pain (continued pain despite increase in medications. patient wishes to know when NG can be removed to to discomfort), flatus, no bowel movement, nausea, afebrile Objective Vital Signs - Last 8 Hours Temp Pulse Resp BP Pulse Ox 03/16/18 07:50 97.9 F 94 14 164/116 94 03/16/18 02:48 97.8 F 77 16 159/83 94 Intake and Output 03/15/18 03/16/18 03/16/18 23:59 07:59 15:59 Intake Total 1100 / 1100 1200 / 1200 Output Total 450 / 450 450 / 450 Balance 650 / 650 750 / 750 Intake: IV Fluids 1100 / 1100 1200 / 1200 KCl 20mEq IN D5%-0.45 NACL 20 1000 / 1000 1000 / 1000 meq In 1,000 ml @ 125 mls/hr IVC .Q8H [facility] Rx#:[id number] Ofirmev 1,000 mg/100 ml 1,000 100 / 100 200 / 200 mg In 100 ml @ 400 mls/hr IVPB Q6HR [facility] Rx#:[id number] Oral 0 / 0 0 / 0 Output: Urine 0 / 0 0 / 0 Gastric Tube Lavage Amount 450 / 450 450 / 450 Left Nare 450 / 450 450 / 450 Other: # Voids 1 Weight 78.2 kg Blood Glucose* 114 127 Patient Weight 03/16/18 23:59 Weight 78.2 kg - General physical appearance well developed, well nourished, no distress - Eyes normal ocular movement - ENT normal pinna, normal nares, normal mucosa, no hearing loss - Respiratory normal expansion, normal respiratory effort, clear to auscultation - Cardiovascular Cardiovascular exam: Present: RRR, no murmurs/rubs/gallops - Abdomen Abdomen: Present: bowel sounds present (minimal but present), soft, tender Abdominal Tenderness: diffusely (worse in suprapubic area today) - Musculoskeletal normal gait, normal posture - Psychiatric oriented to time, oriented to person, oriented to place, speech is normal, other (anxious, rapidly changes symptoms and history, in no distress before provider walks in room) - Labs 03/16/18 08:00 03/16/18 06:18 Diabetes panel 03/16/18 Range/Units 06:18 Sodium 137 (136-145) mEq/L Potassium 3.9 (3.5-5.1) mEq/L Chloride 105 (98-107) mEq/L Carbon Dioxide 26 (23-29) mEq/L BUN 15 (6-20) mg/dL Creatinine 0.82 (0.60-1.20) mg/dL Glucose 120 H (70-105) mg/dL Calcium 9.2 (8.6-10.3) mg/dL Calcium panel 03/16/18 Range/Units 06:18 Calcium 9.2 (8.6-10.3) mg/dL Pituitary panel 03/16/18 Range/Units 06:18 Sodium 137 (136-145) mEq/L Potassium 3.9 (3.5-5.1) mEq/L Chloride 105 (98-107) mEq/L Carbon Dioxide 26 (23-29) mEq/L BUN 15 (6-20) mg/dL Creatinine 0.82 (0.60-1.20) mg/dL Glucose 120 H (70-105) mg/dL Calcium 9.2 (8.6-10.3) mg/dL Adrenal panel 03/16/18 Range/Units 06:18 Sodium 137 (136-145) mEq/L Potassium 3.9 (3.5-5.1) mEq/L Chloride 105 (98-107) mEq/L Carbon Dioxide 26 (23-29) mEq/L BUN 15 (6-20) mg/dL Creatinine 0.82 (0.60-1.20) mg/dL Glucose 120 H (70-105) mg/dL Calcium 9.2 (8.6-10.3) mg/dL Consult Discharge Plan - Plan Referrals: Wero Pena [Resident] - <Kvng Beebe - Last Filed: 03/16/18 13:38> Date of Encounter: 03/16/18 - Assessment and Plan (1) Small bowel obstruction Current Visit: Yes Status: Inactive Objective Vital Signs - Last 8 Hours Temp Pulse Resp BP Pulse Ox 03/16/18 11:32 97.3 F L 68 15 184/96 95 03/16/18 07:50 97.9 F 94 14 164/116 94 Intake and Output 03/15/18 03/16/18 03/16/18 23:59 07:59 15:59 Intake Total 1100 / 1100 1200 / 1200 Output Total 450 / 450 450 / 450 420 / 420 Balance 650 / 650 750 / 750 -420 / -420 Intake: IV Fluids 1100 / 1100 1200 / 1200 KCl 20mEq IN D5%-0.45 NACL 20 1000 / 1000 1000 / 1000 meq In 1,000 ml @ 125 mls/hr IVC .Q8H [facility] Rx#:[id number] Ofirmev 1,000 mg/100 ml 1,000 100 / 100 200 / 200 mg In 100 ml @ 400 mls/hr IVPB Q6HR [facility] Rx#:[id number] Oral 0 / 0 0 / 0 Output: Urine 0 / 0 0 / 0 Gastric Tube Lavage Amount 450 / 450 450 / 450 Left Nare 450 / 450 450 / 450 Gastric Drainage 420 / 420 Other: Meal NPO BREAKFAST Stool Size Small Stool Consistency soft formed Stool Color Brown # Voids 1 1 # Bowel Movements 1 Weight 78.2 kg Blood Glucose* 114 127 114 Patient Weight 03/16/18 23:59 Weight 78.2 kg - Labs 03/16/18 08:00 03/16/18 06:18 Diabetes panel 03/16/18 Range/Units 06:18 Sodium 137 (136-145) mEq/L Potassium 3.9 (3.5-5.1) mEq/L Chloride 105 (98-107) mEq/L Carbon Dioxide 26 (23-29) mEq/L BUN 15 (6-20) mg/dL Creatinine 0.82 (0.60-1.20) mg/dL Glucose 120 H (70-105) mg/dL Calcium 9.2 (8.6-10.3) mg/dL Calcium panel 03/16/18 Range/Units 06:18 Calcium 9.2 (8.6-10.3) mg/dL Pituitary panel 03/16/18 Range/Units 06:18 Sodium 137 (136-145) mEq/L Potassium 3.9 (3.5-5.1) mEq/L Chloride 105 (98-107) mEq/L Carbon Dioxide 26 (23-29) mEq/L BUN 15 (6-20) mg/dL Creatinine 0.82 (0.60-1.20) mg/dL Glucose 120 H (70-105) mg/dL Calcium 9.2 (8.6-10.3) mg/dL Adrenal panel 03/16/18 Range/Units 06:18 Sodium 137 (136-145) mEq/L Potassium 3.9 (3.5-5.1) mEq/L Chloride 105 (98-107) mEq/L Carbon Dioxide 26 (23-29) mEq/L BUN 15 (6-20) mg/dL Creatinine 0.82 (0.60-1.20) mg/dL Glucose 120 H (70-105) mg/dL Calcium 9.2 (8.6-10.3) mg/dL - Attending Attestation I examined this patient and my medical decision-making was reviewed with the Resident Physician. I agree with the documented findings, disposition and treatment plan as described except to the extent set forth below. The patient is seen and evaluated on morning rounds with the resident, and medical student, and clinical nurse practitioner. The patient has had resolution of her pain. We will order small bowel follow-through later today. If this shows rapid transit to the colon the nasogastric tube will be removed. She does not clinically appear to have ongoing bowel obstruction. Kvng Beebe MD FACS
--- NOTE | 2018-03-16 20:02 | Anesthesia Evaluation PreOp ---
Date of Encounter: 03/16/18 Time of Encounter: 19:58 - Past History Planned Operation: Exlap, celiotomy Cardiac History: MA, HTN, Hyperlipidemia, Other (CAD) Pulmonary History: Smoker EMERGENCY TELECOMMUNICATIONS DISPATCHER History: Other (hx of cerebral aneurysm s/p repair,anxiety) Other Medical History: Renal (stones), Other (small bowel obstruction) Anesthesia History: No Prior Anesthetic Complications, Past Anesthesia ( cerebral aneurysm repair,appendectomy, cholecystectomy, hysterectomy,ERCP) Alcohol Use: none Drug use: none Medications and Allergies Gabapentin [Neurontin] 300 mg PO BID 08/18/17 [History] RX: traZODone [TraZODone] 200 mg PO HS 08/18/17 [History] Gabapentin [Neurontin] 600 mg PO HS 03/14/18 [History] Albuterol Sulfate [Ventolin Hfa] 2 puff IH Q4H PRN 03/15/18 [History] Promethazine [Phenergan] 25 mg PO Q8HR PRN 03/15/18 [History] 3 Allergy/AdvReac Type Severity Reaction Status Date / Time No Known Allergies Allergy Verified 09/23/17 16:09 - Meds/Allergy Pre-op Review Medications Reviewed: Yes Allergies Reviewed: Yes Beta Blockers on Current Med List: Yes (05/16/18 5146) Anesthesia Results - Labs 03/16/18 08:00 03/16/18 06:18 - Imaging EKG: report reviewed (SINUS RHYTHM Electronically Signed On 12-21-2017 13:01:10 EDT by Syed Desouza) Additional studies: Impressions: LVEF 55-60%. Mild left ventricular diastolic dysfunction. Normal right ventricular structure and function. Mild mitral regurgitation. Mild aortic regurgitation. Lack of optimal TR signal to estimate RVSP. There is a small pericardial effusion present along the inferior border of the RV. There is no echocardiographic evidence of tamponade. Anesthesia Exam Vital Signs/O2 Sat, Most Current Temp Pulse Resp BP Pulse Ox 98.2 F 72 15 147/80 93 03/16/18 19:33 03/16/18 19:33 03/16/18 19:33 03/16/18 19:33 03/16/18 19:33 Weight: 78kg NPO (# of Hours): MN - HEENT Pupil (Motor): Pupils equal, EOMI Mallampati: II Denture Type: Upper: Complete Oral Opening: Greater than 3 - EMERGENCY TELECOMMUNICATIONS DISPATCHER LOC: Oriented EMERGENCY TELECOMMUNICATIONS DISPATCHER Motor: Normal RUE, Normal LUE, Normal RLE, Normal LLE, Normal Face EMERGENCY TELECOMMUNICATIONS DISPATCHER Sensory: Normal: RUE, LUE, RLE, LLE, Face - Cardiac Rhythm: Regular - Pulmonary Breath Sounds: bilateral Clear Respiratory Effort: Symmetrical Anesthesia Assess/Plan ASA Score: 3 Anesthetic Plan: General (On arrival to patient room she had just finished dinner, and informed me that she was not aware she was having surgery, she had a small bowel follow through and her diet had been advanced and plan was for discharge home in the am. I did not have her sign anesthesia consent)
[2018-03-17] MEDS: D5% in 0.45% NACL w KCl 20 MEQ/1,000 ML MLS IVC SCH ×2 (01:57→11:25)
[2018-03-17] MEDS: Ketorolac 15 MG/ML VIAL IVP SCH ×2 (03:21→09:45)
[2018-03-17 03:41] LABS: Basophils % 0.3 %; Eosinophils # 0.1 K/mcL (0.0-0.6); Eosinophils % 2.2 %; Hematocrit 34.1 % (35.3-44.9); Hemoglobin 10.8 g/dL (11.5-15.4); Immature Granulocytes % 0.3 % (0-4); Lymphocytes # 2.1 K/mcL (0.6-4.6); Lymphocytes % 32.9 %; Mean Corpuscular HGB Conc 31.7 g/dL (31.6-35.5); Mean Corpuscular Hemoglobin 27.6 pg (28.0-33.3); Mean Corpuscular Volume 87.2 fL (83.0-100.0); Mean Platelet Volume 11.9 fL (9.4-12.4); Monocytes # 0.6 K/mcL (0.0-1.3); Monocytes % 10.1 %; Neutrophils # 3.5 K/mcL (1.6-8.9); Platelet Count 248 K/mcL (140-400); Red Blood Count 3.91 M/mcL (3.82-4.97); Red Cell Distribution Width 13.3 % (11.5-14.5); Segmented Neutrophils % 54.2 %
[2018-03-17 03:46] LABS: INR 0.9; Prothrombin Time 10.6 Seconds (9.4-12.1)
[2018-03-17] MEDS: Acetaminophen IV 1,000 MG/100 ML INFUS..BTL IVPB SCH ×2 (05:57→11:03)
[2018-03-17] MEDS: *HR* Heparin 5,000 UNIT/ML VIAL SQ SCH (05:59)
[2018-03-17] MEDS ORDERED: cefOXitin 1,000 MG, Sodium Chloride IRRigation 1,000 ML IR ONE (06:00)
[2018-03-17] MEDS ORDERED: Gabapentin 300 MG CAPSULE PO SCH ×3 (09:00→21:00)
--- NOTE | 2018-03-17 09:24 | General Surgery Progress Note ---
<Magdalena Barton - Last Filed: 03/17/18 09:22> Date of Encounter: 03/17/18 Time of Encounter: 09:22 - Assessment and Plan (1) Abdominal pain Status: Acute Likely gastroenteritis; improving with WBC 6.4 - continue supportive treatment - start PO home medications of gabapentin and trazadone - wean of ativan and IV opiates - start percocet 5 g 4 prn - advanced diet to full with possible discharge this afternoon or tomorrow pending ability to advance diet Qualifiers: Abdominal location: generalized Qualified Code(s): R10.84 - Generalized abdominal pain (2) Small bowel obstruction Status: Suspected SBFT showed no signs of small bowel obstruction or stricture with normal transit time - unlikely to be SBO (3) CAD (coronary artery disease) Status: Chronic -Continue Lopressor 5 mg IVP q 6 prn Qualifiers: Coronary Disease-Associated Artery/Lesion type: [place] artery [place] vs. transplanted heart: [place] heart Associated angina: without angina Qualified Code(s): I25.10 - Atherosclerotic heart disease of [place] coronary artery without angina pectoris (4) HTN (hypertension) Status: Chronic Elevated this morning - hydralazine prn SBP > 160, IV while NG placed Qualifiers: Hypertension type: essential hypertension Qualified Code(s): I10 - Essential (primary) hypertension (5) Anxiety Status: Chronic - restart home remeron and trazodone - wean of Ativan 2 mg q 6hr prn (6) DVT prophylaxis Status: Acute heparin sq Subjective Patient reports: pain is less, tolerating liquids well, bowel movement, afebrile Objective Vital Signs - Last 8 Hours Temp Pulse Resp BP Pulse Ox 03/17/18 06:43 97.8 F 64 15 156/92 96 03/17/18 04:10 98.2 F 63 15 158/75 94 Intake and Output 03/16/18 03/17/18 03/17/18 23:59 07:59 15:59 Intake Total 1200 / 1200 1100 / 1100 Output Total 0 / 0 0 / 0 Balance 1200 / 1200 1100 / 1100 Intake: IV Fluids 1200 / 1200 1100 / 1100 KCl 20mEq IN D5%-0.45 NACL 20 1000 / 1000 1000 / 1000 meq In 1,000 ml @ 125 mls/hr IVC .Q8H [facility] Rx#:[id number] Ofirmev 1,000 mg/100 ml 1,000 200 / 200 100 / 100 mg In 100 ml @ 400 mls/hr IVPB Q6HR [facility] Rx#:[id number] Oral 0 / 0 0 / 0 Output: Urine 0 / 0 0 / 0 Other: Weight 78.5 kg Patient Weight 03/17/18 23:59 Weight 78.5 kg - General physical appearance well developed, well nourished, no distress - ENT normal pinna, normal nares, normal mucosa - Respiratory normal expansion, normal respiratory effort, clear to auscultation - Cardiovascular Cardiovascular exam: Present: RRR, no murmurs/rubs/gallops - Abdomen Abdomen: Present: bowel sounds present, soft. Absent: distended, guarding Abdominal Tenderness: RLQ, LLQ Hernia: none - Incision Incision: Present: intact - Integumentary no rash, no growths, no abnormal pigmentation - Neurologic normal coordination, normal sensation - Musculoskeletal normal gait, normal posture, other - Psychiatric oriented to time, oriented to person, oriented to place, memory intact, other ( anxious ) - Labs 03/17/18 03:27 03/16/18 06:18 Consult Discharge Plan - Plan Referrals: Cecil Butts [Resident] - 03/24/18 4:00 pm <Kvng Beebe - Last Filed: 03/17/18 18:09> Date of Encounter: 03/17/18 - Assessment and Plan (1) Small bowel obstruction Status: Inactive Objective Vital Signs - Last 8 Hours Temp Pulse Resp BP Pulse Ox 03/17/18 10:59 97.8 F 54 15 145/85 96 Intake and Output 03/17/18 03/17/18 03/17/18 07:59 15:59 23:59 Intake Total 1100 / 1100 1100 / 1100 Output Total 0 / 0 Balance 1100 / 1100 1100 / 1100 Intake: IV Fluids 1100 / 1100 1100 / 1100 KCl 20mEq IN D5%-0.45 NACL 20 1000 / 1000 1000 / 1000 meq In 1,000 ml @ 125 mls/hr IVC .Q8H [facility] Rx#:[id number] Ofirmev 1,000 mg/100 ml 1,000 100 / 100 100 / 100 mg In 100 ml @ 400 mls/hr IVPB Q6HR [facility] Rx#:[id number] Oral 0 / 0 Output: Urine 0 / 0 Other: Weight 78.5 kg Patient Weight 03/17/18 23:59 Weight 78.5 kg - Labs 03/17/18 03:27 03/16/18 06:18 - Attending Attestation I examined this patient and my medical decision-making was reviewed with the Resident Physician. I agree with the documented findings, disposition and treatment plan as described except to the extent set forth below. The patient is seen and evaluated on morning rounds with the resident and medical student. She is made tremendous improvement. She had 2 bowel movements overnight. We will advance her diet. If she feels well she can be discharged this afternoon. Kvng Beebe MD FACS
[2018-03-17] MEDS ORDERED: *HR* OxyCODONE/APAP 5/325 TABLET PO PRN (09:29)
[2018-03-17] MEDS: OXYCODONE Oral CONC 10 MG/0.5 ML ORAL.SYG SL PRN (11:03)
[2018-03-17 11:06] VITALS: BP 145/85
[2018-03-17] MEDS ORDERED: Lidocaine -MPF 4% 5 ML AMPUL ONE (14:32)
[2018-03-17] MEDS ORDERED: *HR* Propofol 200 MG/20 ML VIAL IVP ONE (14:32)
[2018-03-17] MEDS ORDERED: Lidocaine -MPF 2% 2 ML VIAL ONE ×2 (14:32→14:34)
[2018-03-17] MEDS ORDERED: *HR* FentaNYL (PF) 100 MCG/2 ML VIAL ONE (14:32)
[2018-03-17] MEDS ORDERED: *HR* Rocuronium Bromide 50 MG/5 ML VIAL ONE (14:32)
[2018-03-17] MEDS ORDERED: *HR* Succinylcholine 200 MG/10 ML VIAL IVP ONE (14:32)
[2018-03-17] MEDS ORDERED: *HR* Midazolam HCl 2 MG/2 ML VIAL ONE (14:37)
--- NOTE | 2018-03-17 15:08 | Discharge Summary ---
Date of Encounter: 03/17/18 Time of Encounter: 15:08 - Discharge Diagnosis (1) Gastroenteritis Priority: Primary Status: Resolved General Surgery Exam Initial Vital Signs Temp Pulse Resp BP Pulse Ox 97.7 F 91 16 107/72 91 03/14/18 17:36 03/14/18 17:36 03/14/18 17:36 03/14/18 17:36 03/14/18 17:36 - General physical appearance well developed, well nourished, no distress, no pain - Eyes normal ocular movement - ENT normal mucosa, atraumatic, normocephalic - Neck trachea midline - Respiratory normal respiratory effort, clear to auscultation - Cardiovascular Cardiovascular exam: Present: RRR - Abdomen Abdomen general surgery: Present: bowel sounds present, soft, non tender - Integumentary Integumentary general surgery: Present: warm and dry - Neurologic Present: CN 2-12 grossly intact - Psychiatric Psychiatric general surgery: Present: appropriate, oriented to person, oriented to place, oriented to time, speech is normal, memory intact - Hospital Course Hospital course: Ms. Perdue is a 58 year old female who presented to the hospital with acute onset of abdominal pain. She did have imaging complete which was concerning for small bowel obstruction. The patient was admitted to the surgery service and treated with conservative measures. She did undergo a small bowel follow- through with barium which showed rapid transit of contrast to the colon without obstruction. The patient was continued on conservative measures and treated for presumptive gastroenteritis. She has continued to improve. She is tolerating full liquid diet without nausea or vomiting. Denies any abdominal pain at this time. Denies any fevers or chills. Her white count is normal. We will begin discharge planning to home and plan for outpatient follow-up with her PCP. She may follow-up with Dr. Beebe as needed. - Time Spent with Patient Total time spent providing and/or coordinating discharge services: Less than 30 minutes - Discharge Medications Home Medications: Gabapentin [Neurontin] 300 mg PO 0900,1500 08/18/17 [History] traZODone [TraZODone] 200 mg PO HS 08/18/17 [History] Gabapentin [Neurontin] 600 mg PO HS 03/14/18 [History] Albuterol Sulfate [Ventolin Hfa] 2 puff IH Q4H PRN 03/15/18 [History] Promethazine [Phenergan] 25 mg PO Q8HR PRN 03/15/18 [History] Mirtazapine [Remeron] 15 mg PO HS 03/17/18 [History] Allergies/Adverse Reactions: 3 Allergy/AdvReac Type Severity Reaction Status Date / Time No Known Allergies Allergy Verified 09/23/17 16:09 Date of admission: 03/14/18 17:27 Primary care physician: PCP NONE Consults: 03/14/18 17:52 Consult to Nutrition [CONS] Routine Comment: Consulting Provider: NUTRITION Reason for Dietary Consult: MST Score 03/16/18 12:38 Consult to Invasive Line Access Team [CONS] Routine Reason for Consult: limited vascular access Line Type: EPIV Discharging clinician: Renetta Rutledge date of discharge: 03/17/18 Labs on day of discharge: Labs from last 24 hours 03/17/18 03/17/18 03/16/18 03:27 03:27 11:30 WBC 6.4 RBC 3.91 Hgb 10.8 L Hct 34.1 L MCV 87.2 MCH 27.6 L MCHC 31.7 RDW 13.3 Plt Count 248 MPV 11.9 Immature Gran % 0.3 Seg Neutrophils % 54.2 Lymphocytes % 32.9 Monocytes % 10.1 Eosinophils % 2.2 Basophils % 0.3 Neutrophils # 3.5 Lymphocytes # 2.1 Monocytes # 0.6 Eosinophils # 0.1 Basophils # 0.0 PT 10.6 INR 0.9 POC Glucose 114 H 03/15/18 03/15/18 17:13 11:24 WBC RBC Hgb Hct MCV MCH MCHC RDW Plt Count MPV Immature Gran % Seg Neutrophils % Lymphocytes % Monocytes % Eosinophils % Basophils % Neutrophils # Lymphocytes # Monocytes # Eosinophils # Basophils # PT INR POC Glucose 111 H 120 H - Impressions ITS Impressions KUB X-Ray 03/15/18 16:30 IMPRESSION: 1. Enteric tube is in the stomach. 2. Interval decompression of the small bowel loops compared to the prior CT exam. 3. Mild lung base atelectasis. D/ /15/2018 16:48:48 Marco Dillard MD / diane Interpreting Provider: Marco Dillard MD Small Bowel X-Ray 03/16/18 07:36 IMPRESSION: Unremarkable small bowel follow through series. D/ / Marshall Echevarria MD / Marshall Echevarria MD Interpreting Provider: Marshall Echevarria MD - Patient Status Disposition: Home, Self-Care Condition: Good Functional capacity at discharge: independent ambulation Overall status at discharge: patient is progressing back to baseline - Discharge Instructions Follow Up With: Cecil Butts [Resident] - 03/24/18 4:00 pm - Diet and Activity Activity: increase activity as tolerated Diet: other (soft diet for 1 week and then advance to regular as tolerated) - Attending Attestation For this encounter, I have reviewed the HEALTH OFFICER or PA documentation, treatment plan, and medical decision making; and I have had face to face time with this patient.
[2018-03-17] MEDS ORDERED: traZODone 50 MG TABLET PO SCH (21:00)
== END 2018-03-17 15:34 | disposition home or self-care (01) | DRG 249 ==
LOC: 3ANU 17:27
PROVIDERS: ADMIT Surgery; ATTEND Surgery

== ENCOUNTER 2019-06-14 15:35 | Observation (INO) ==
[2019-06-14 16:50] LABS: Basophils # 0.1 K/mcL (0.0-0.2); Eosinophils # 0.1 K/mcL (0.0-0.6); Eosinophils % 0.8 %; Hematocrit 48.4 % (35.3-44.9); Hemoglobin 15.4 g/dL (11.5-15.4); Immature Granulocytes % 0.2 % (0-4); Lymphocytes # 3.8 K/mcL (0.6-4.6); Mean Corpuscular HGB Conc 31.8 g/dL (31.6-35.5); Mean Corpuscular Hemoglobin 28.5 pg (28.0-33.3); Mean Corpuscular Volume 89.5 fL (83.0-100.0); Mean Platelet Volume 12.2 fL (9.4-12.4); Monocytes # 0.6 K/mcL (0.0-1.3); Monocytes % 6.1 %; Neutrophils # 4.5 K/mcL (1.6-8.9); Platelet Count 343 K/mcL (140-400); Red Blood Count 5.41 M/mcL (3.82-4.97); Red Cell Distribution Width 13.4 % (11.5-14.5); Segmented Neutrophils % 49.9 %; White Blood Count 9.1 K/mcL (4.3-11.1)
[2019-06-14] MEDS ORDERED: Nitroglycerin 0.4 MG TAB.SUBL SL ONE (16:54)
[2019-06-14] MEDS ORDERED: *HR* LORazepam 1 MG TABLET PO ONE (16:54)
[2019-06-14] MEDS ORDERED: Aspirin 325 MG TABLET PO ONE (16:54)
[2019-06-14 17:10] LABS: BUN/Creatinine Ratio 11 (6-26); Blood Urea Nitrogen 12 mg/dL (8-23); Calcium 10.6 mg/dL (8.6-10.3); Carbon Dioxide 20 mEq/L (23-29); Chloride 106 mEq/L (98-107); Glucose 100 mg/dL (70-105); Osmolality,Calculated 286 (280-300); Potassium 3.8 mEq/L (3.5-5.1); Sodium 138 mEq/L (136-145); eGFR For African Americans > 60 (> 60); eGFR For Non-African Americans 50 (> 60)
[2019-06-14 17:11] LABS: Troponin I < 0.03 ng/mL (< 0.04)
[2019-06-14] MEDS ORDERED: Nicotine 14 MG PATCH.TD24 TD PRN (21:07)
[2019-06-14] MEDS: Gabapentin 300 MG CAPSULE PO SCH (21:27)
[2019-06-14] MEDS: Morphine Sulfate 2 MG/ML SYRINGE IVP PRN (21:27)
[2019-06-14] MEDS: Nitroglycerin 0.4 MG TAB.SUBL SL PRN ×3 (22:01→22:24)
[2019-06-14] MEDS ORDERED: *HR* LORazepam 2 MG/ML VIAL IVP ONE (23:35)
[2019-06-14] MEDS: Acetaminophen 325 MG TABLET PO PRN (23:49)
[2019-06-15 06:38] LABS: Alanine Aminotransferase 11 Units/L (7-52); Albumin 3.8 g/dL (3.5-5.7); Albumin/Globulin Ratio 1.6 (1.1-2.2); Alkaline Phosphatase 126 Units/L (34-104); Aspartate Amino Transferase 11 Units/L (13-39); BUN/Creatinine Ratio 16 (6-26); Bilirubin,Total 0.3 mg/dL (0.3-1.0); Blood Urea Nitrogen 17 mg/dL (8-23); Calcium 9.7 mg/dL (8.6-10.3); Carbon Dioxide 22 mEq/L (23-29); Chloride 106 mEq/L (98-107); Chol/HDL Ratio 10.1 (0-4.9); Cholesterol 253 mg/dL (< 200); Globulin 2.4 g/dL (2.4-3.5); Glucose 123 mg/dL (70-105); HDL Cholesterol 25 mg/dL (40-59); LDL Cholesterol,Calculated 181 mg/dL (0-99); Osmolality,Calculated 291 (280-300); Potassium 3.6 mEq/L (3.5-5.1); Sodium 139 mEq/L (136-145); Total Protein 6.2 g/dL (6.4-8.9); Triglycerides 235 mg/dL (< 150); eGFR For African Americans > 60 (> 60); eGFR For Non-African Americans 52 (> 60)
[2019-06-15] MEDS ORDERED: Perflutren Lipid Microsphere 1.3 ML in 0.9 % Sodium Chloride 8.7 ML IVP ONE (07:04)
[2019-06-15] MEDS ORDERED: traZODone 50 MG TABLET PO SCH ×2 (09:00→21:00)
[2019-06-15] MEDS: Acetaminophen 325 MG TABLET PO PRN (10:20)
[2019-06-15] MEDS: Gabapentin 300 MG CAPSULE PO SCH ×2 (10:20→21:05)
[2019-06-15] MEDS: Morphine Sulfate 2 MG/ML SYRINGE IVP PRN ×3 (10:24→21:09)
[2019-06-15 10:46] LABS: Basophils # 0.1 K/mcL (0.0-0.2); Basophils % 1.2 %; Eosinophils # 0.2 K/mcL (0.0-0.6); Eosinophils % 3.1 %; Hematocrit 43.4 % (35.3-44.9); Hemoglobin 13.6 g/dL (11.5-15.4); Immature Granulocytes % 0.3 % (0-4); Lymphocytes # 2.7 K/mcL (0.6-4.6); Lymphocytes % 39.8 %; Mean Corpuscular HGB Conc 31.3 g/dL (31.6-35.5); Mean Corpuscular Hemoglobin 28.7 pg (28.0-33.3); Mean Corpuscular Volume 91.6 fL (83.0-100.0); Mean Platelet Volume 12.4 fL (9.4-12.4); Monocytes # 0.7 K/mcL (0.0-1.3); Monocytes % 9.5 %; Neutrophils # 3.2 K/mcL (1.6-8.9); Platelet Count 262 K/mcL (140-400); Red Blood Count 4.74 M/mcL (3.82-4.97); Red Cell Distribution Width 13.6 % (11.5-14.5); Segmented Neutrophils % 46.1 %; White Blood Count 6.9 K/mcL (4.3-11.1)
[2019-06-15] MEDS: *HR* Heparin 5,000 UNIT/ML VIAL SQ SCH ×2 (14:06→21:07)
[2019-06-15] MEDS: Nitroglycerin 0.4 MG TAB.SUBL SL PRN (14:09)
[2019-06-16] MEDS: Morphine Sulfate 2 MG/ML SYRINGE IVP PRN ×2 (02:42→06:19)
[2019-06-16 05:00] LABS: Basophils # 0.1 K/mcL (0.0-0.2); Eosinophils # 0.2 K/mcL (0.0-0.6); Eosinophils % 2.3 %; Hematocrit 45.4 % (35.3-44.9); Hemoglobin 14.1 g/dL (11.5-15.4); Immature Granulocytes % 0.1 % (0-4); Lymphocytes # 3.7 K/mcL (0.6-4.6); Lymphocytes % 46.4 %; Mean Corpuscular HGB Conc 31.1 g/dL (31.6-35.5); Mean Corpuscular Hemoglobin 28.4 pg (28.0-33.3); Mean Corpuscular Volume 91.5 fL (83.0-100.0); Mean Platelet Volume 12.7 fL (9.4-12.4); Monocytes # 0.6 K/mcL (0.0-1.3); Monocytes % 8.1 %; Neutrophils # 3.3 K/mcL (1.6-8.9); Platelet Count 248 K/mcL (140-400); Red Blood Count 4.96 M/mcL (3.82-4.97); Red Cell Distribution Width 13.8 % (11.5-14.5); Segmented Neutrophils % 42.1 %; White Blood Count 7.9 K/mcL (4.3-11.1)
[2019-06-16 05:04] LABS: Calcium 9.7 mg/dL (8.6-10.3); Magnesium 2.1 mg/dL (1.6-2.6); Potassium 3.6 mEq/L (3.5-5.1)
[2019-06-16] MEDS: *HR* Heparin 5,000 UNIT/ML VIAL SQ SCH (05:08)
[2019-06-16] MEDS ORDERED: Regadenoson 0.4 MG/5 ML SYRINGE IVP ONE (07:32)
[2019-06-16] MEDS ORDERED: Aspirin 81 MG TAB.CHEW PO SCH (09:00)
[2019-06-16] MEDS: Gabapentin 300 MG CAPSULE PO SCH (09:05)
[2019-06-16 10:24] VITALS: BP 114/74
[2019-06-16] MEDS ORDERED: methylPREDNISolone 125 MG/2 ML VIAL IVP ONE (11:15)
== END 2019-06-16 15:42 | disposition home or self-care (01) ==
LOC: EMEROOARM 15:35 → 3NENU 15:35 → SUATTDRO 19:33 → 3NENU 19:57
PROVIDERS: ADMIT Internal Medicine; ATTEND Pharmacist

== ENCOUNTER 2020-03-28 13:18 | Observation (INO) ==
[~2020-03-28 13:18] MED LIST: Acetaminophen IV 1,000 MG/100 ML INFUS..BTL IVPB ONE; Acetaminophen IV 1,000 MG/100 ML INFUS..BTL IVPB SCH; Bacitracin 50,000 UNIT, Polymyxin B Sulfate 500,000 UNIT, Sodium Chloride IRRigation 1,... IR ONE; Famotidine 20 MG/2 ML VIAL IVP ONE; Pregabalin 75 MG CAPSULE PO ONE; Ringers Solution, Lactated 1,000 ML IVC SCH
[2020-03-28] MEDS ORDERED: CeFAZolin Syr 2,000MG/20 ML 2,000 MG/20 ML SYRINGE IVPB ONE (13:37)
[2020-03-28] MEDS ORDERED: Famotidine 20 MG/2 ML VIAL IVP SCH (14:00)
[2020-03-28] MEDS ORDERED: Pregabalin 75 MG CAPSULE PO SCH (14:00)
[2020-03-28] MEDS ORDERED: Dexamethasone 4 MG/ML VIAL ONE (14:13)
[2020-03-28] MEDS ORDERED: Lidocaine -MPF 2% 2 ML VIAL ONE (14:13)
[2020-03-28] MEDS ORDERED: *HR* Succinylcholine 200 MG/10 ML VIAL IVP ONE (14:13)
[2020-03-28] MEDS ORDERED: Ondansetron 4 MG/2 ML VIAL ONE (14:13)
[2020-03-28] MEDS ORDERED: *HR* FentaNYL (PF) 100 MCG/2 ML VIAL ONE (14:13)
[2020-03-28] MEDS ORDERED: *HR* Remifentanil 1 MG VIAL IVP ONE (14:13)
[2020-03-28] MEDS ORDERED: *HR* Midazolam HCl 2 MG/2 ML VIAL ONE (14:14)
[2020-03-28] MEDS ORDERED: *HR* Propofol 200 MG/20 ML VIAL IVP ONE ×3 (14:14→16:17)
[2020-03-28] MEDS ORDERED: Ondansetron 4 MG/2 ML VIAL IVP PRN ×2 (14:46→19:07)
[2020-03-28] MEDS ORDERED: Albuterol 2.5 MG/3 ML NEBULIZER IH PRN (14:46)
[2020-03-28] MEDS ORDERED: *HR* FentaNYL (PF) 100 MCG/2 ML VIAL IVP PRN (14:46)
[2020-03-28] MEDS ORDERED: Dexamethasone 4 MG/ML VIAL IVP PRN (14:46)
[2020-03-28] MEDS: *HR* HYDROmorphone PF 0.5 MG/0.5 ML SYRINGE IVP PRN ×4 (17:01→17:34)
[2020-03-28] MEDS ORDERED: Ringers Solution, Lactated 1,000 ML IVC SCH (19:07)
[2020-03-28] MEDS ORDERED: Naloxone 0.4 MG/ML INJ IVP PRN (19:07)
[2020-03-28] MEDS ORDERED: Acetaminophen 325 MG TABLET PO PRN (19:07)
[2020-03-28] MEDS: traZODone 50 MG TABLET PO SCH (21:00)
[2020-03-28] MEDS: *HR* OxyCODONE Immed Rel 5 MG TABLET PO PRN (22:05)
[2020-03-29] MEDS: CeFAZolin 2 GM/120 ML BAG IVPB SCH ×2 (00:53→08:31)
[2020-03-29] MEDS: *HR* HYDROcodone/Acet 5/325 mg TABLET PO PRN (01:23)
[2020-03-29] MEDS: *HR* OxyCODONE Immed Rel 5 MG TABLET PO PRN ×5 (04:56→23:07)
[2020-03-29] MEDS: Cyanocobalamin (B-12) 1,000 MCG TABLET PO SCH (08:32)
[2020-03-29] MEDS: Cholecalciferol (D-3) 1,000 UNIT (25MCG) TABLET PO SCH (09:10)
[2020-03-29] MEDS: traZODone 50 MG TABLET PO SCH (23:02)
[2020-03-30] MEDS: *HR* OxyCODONE Immed Rel 5 MG TABLET PO PRN ×3 (04:19→12:42)
[2020-03-30] MEDS: Cholecalciferol (D-3) 1,000 UNIT (25MCG) TABLET PO SCH (08:37)
[2020-03-30] MEDS: Cyanocobalamin (B-12) 1,000 MCG TABLET PO SCH (08:37)
[2020-03-30 12:04] VITALS: BP 121/84
[2020-03-30] MEDS: *HR* HYDROcodone/Acet 5/325 mg TABLET PO PRN (16:07)
== END 2020-03-30 16:42 | disposition home health service (06) ==
LOC: SAMDAY 13:18 → 3NENU 13:18
PROVIDERS: ADMIT Orthopaedic Surgery Orthopaedic Surgery of the Spine; ATTEND Orthopaedic Surgery Orthopaedic Surgery of the Spine

== ENCOUNTER 2020-08-09 16:14 | Observation (INO) ==
[2020-08-09] MEDS ORDERED: *HR* FentaNYL (PF) 100 MCG/2 ML VIAL IVP ONE ×2 (16:59→18:19)
[2020-08-09] MEDS ORDERED: Isovue-370 500 ML BOTTLE IVP ONE (16:59)
[2020-08-09] MEDS ORDERED: Ondansetron 4 MG/2 ML VIAL IVP ONE (17:00)
[2020-08-09] MEDS ORDERED: 0.9 % Sodium Chloride 1,000 ML IVC ONE (17:12)
[2020-08-09 17:48] LABS: Basophils # 0.1 K/mcL (0.0-0.2); Basophils % 0.9 %; Eosinophils # 0.1 K/mcL (0.0-0.6); Eosinophils % 1.4 %; Hematocrit 41.4 % (35.3-44.9); Hemoglobin 13.7 g/dL (11.5-15.4); Immature Granulocytes % 0.3 % (0-4); Lymphocytes # 3.5 K/mcL (0.6-4.6); Lymphocytes % 33.7 %; Mean Corpuscular HGB Conc 33.1 g/dL (31.6-35.5); Mean Corpuscular Hemoglobin 28.8 pg (28.0-33.3); Mean Corpuscular Volume 87.2 fL (83.0-100.0); Mean Platelet Volume 11.5 fL (9.4-12.4); Monocytes # 0.8 K/mcL (0.0-1.3); Monocytes % 7.8 %; Neutrophils # 5.7 K/mcL (1.6-8.9); Platelet Count 346 K/mcL (140-400); Red Blood Count 4.75 M/mcL (3.82-4.97); Red Cell Distribution Width 14.3 % (11.5-14.5); Segmented Neutrophils % 55.9 %; White Blood Count 10.3 K/mcL (4.3-11.1)
[2020-08-09 18:00] LABS: Alanine Aminotransferase 12 Units/L (7-52); Albumin 4.2 g/dL (3.5-5.7); Albumin/Globulin Ratio 1.5 (1.1-2.2); Alkaline Phosphatase 132 Units/L (34-104); Aspartate Amino Transferase 13 Units/L (13-39); Bilirubin,Direct 0.1 mg/dL (0.0-0.2); Bilirubin,Indirect 0.4 mg/dL (0.0-1.0); Bilirubin,Total 0.5 mg/dL (0.3-1.0); Globulin 2.8 g/dL (2.4-3.5); Lipase 8 Units/L (11-82)
[2020-08-09 18:18] LABS: BUN/Creatinine Ratio 19 (6-26); Blood Urea Nitrogen 18 mg/dL (8-23); Calcium 10.3 mg/dL (8.6-10.3); Carbon Dioxide 17 mEq/L (23-29); Chloride 107 mEq/L (98-107); Glucose 95 mg/dL (70-105); Osmolality,Calculated 282 (280-300); Potassium 3.9 mEq/L (3.5-5.1); Sodium 135 mEq/L (136-145); eGFR For African Americans > 60 (> 60); eGFR For Non-African Americans > 60 (> 60)
[2020-08-09] MEDS ORDERED: Aspirin 81 MG TAB.CHEW PO STA (18:43)
[2020-08-09] MEDS ORDERED: Naloxone 0.4 MG/ML INJ IVP PRN (19:51)
[2020-08-09] MEDS ORDERED: Ondansetron 4 MG/2 ML VIAL IVP PRN (19:53)
[2020-08-09] MEDS: Pantoprazole 40 MG VIAL IVP SCH (20:46)
[2020-08-09] MEDS: Nitroglycerin 0.4 MG TAB.SUBL SL PRN ×3 (20:47→21:04)
[2020-08-09] MEDS: traZODone 50 MG TABLET PO SCH (21:25)
[2020-08-09] MEDS: *HR* Heparin 5,000 UNIT/ML VIAL SQ SCH (21:25)
[2020-08-09] MEDS: Gabapentin 400 MG CAPSULE PO SCH (21:25)
[2020-08-09] MEDS: Morphine Sulfate 2 MG/ML SYRINGE IVP PRN (21:31)
[2020-08-09] MEDS: Budesonide/Formoterol 160/4.5 1 PUFF INH IH SCH (21:59)
[2020-08-09] MEDS: Sucralfate 1 GM TABLET PO SCH (22:04)
[2020-08-09 22:19] LABS: VBG HCO3 21 mEq/L (21-27); VBG PCO2 37 mmHg (41-51); VBG PH 7.37 pH Units (7.32-7.42); VBG PO2 193 mmHg (25-50)
[2020-08-10] MEDS: Morphine Sulfate 2 MG/ML SYRINGE IVP PRN ×3 (03:50→12:18)
[2020-08-10] MEDS: Pantoprazole 40 MG VIAL IVP SCH ×2 (05:53→17:24)
[2020-08-10] MEDS: *HR* Heparin 5,000 UNIT/ML VIAL SQ SCH ×3 (05:53→22:09)
[2020-08-10 06:30] LABS: Basophils # 0.1 K/mcL (0.0-0.2); Basophils % 0.9 %; Eosinophils # 0.2 K/mcL (0.0-0.6); Eosinophils % 2.4 %; Hematocrit 39.8 % (35.3-44.9); Hemoglobin 12.8 g/dL (11.5-15.4); Immature Granulocytes % 0.3 % (0-4); Lymphocytes # 2.8 K/mcL (0.6-4.6); Lymphocytes % 39.4 %; Mean Corpuscular HGB Conc 32.2 g/dL (31.6-35.5); Mean Corpuscular Hemoglobin 28.6 pg (28.0-33.3); Mean Platelet Volume 11.3 fL (9.4-12.4); Monocytes # 0.6 K/mcL (0.0-1.3); Monocytes % 8.7 %; Neutrophils # 3.4 K/mcL (1.6-8.9); Platelet Count 341 K/mcL (140-400); Red Blood Count 4.47 M/mcL (3.82-4.97); Red Cell Distribution Width 14.6 % (11.5-14.5); Segmented Neutrophils % 48.3 %; White Blood Count 7.1 K/mcL (4.3-11.1)
[2020-08-10 06:48] LABS: BUN/Creatinine Ratio 18 (6-26); Blood Urea Nitrogen 15 mg/dL (8-23); Calcium 9.8 mg/dL (8.6-10.3); Carbon Dioxide 21 mEq/L (23-29); Chloride 109 mEq/L (98-107); Glucose 94 mg/dL (70-105); Osmolality,Calculated 283 (280-300); Potassium 3.8 mEq/L (3.5-5.1); Sodium 136 mEq/L (136-145); eGFR For African Americans > 60 (> 60); eGFR For Non-African Americans > 60 (> 60)
[2020-08-10] MEDS: Budesonide/Formoterol 160/4.5 1 PUFF INH IH SCH ×2 (07:55→21:49)
[2020-08-10] MEDS: Sucralfate 1 GM TABLET PO SCH ×4 (08:13→22:08)
[2020-08-10] MEDS: Gabapentin 300 MG CAPSULE PO SCH ×2 (08:13→11:23)
[2020-08-10] MEDS ORDERED: Regadenoson 0.4 MG/5 ML SYRINGE IVP ONE (10:43)
[2020-08-10] MEDS: *HR* HYDROcodone/Acet 10/325 mg TABLET PO PRN ×2 (15:32→22:09)
[2020-08-10] MEDS: tiZANidine 4 MG TABLET PO PRN ×2 (17:25→23:29)
[2020-08-10] MEDS ORDERED: Morphine Sulfate 2 MG/ML SYRINGE IVP ONE (18:24)
[2020-08-10] MEDS: Gabapentin 400 MG CAPSULE PO SCH (22:06)
[2020-08-10] MEDS: traZODone 50 MG TABLET PO SCH (22:09)
[2020-08-11] MEDS: *HR* HYDROcodone/Acet 10/325 mg TABLET PO PRN ×3 (03:57→18:45)
[2020-08-11 05:06] LABS: Hemoglobin 12.7 g/dL (11.5-15.4); Mean Corpuscular HGB Conc 31.8 g/dL (31.6-35.5); Mean Corpuscular Hemoglobin 28.7 pg (28.0-33.3); Mean Corpuscular Volume 90.3 fL (83.0-100.0); Mean Platelet Volume 12.2 fL (9.4-12.4); Platelet Count 295 K/mcL (140-400); Red Blood Count 4.43 M/mcL (3.82-4.97); Red Cell Distribution Width 14.7 % (11.5-14.5)
[2020-08-11 05:22] LABS: BUN/Creatinine Ratio 19 (6-26); Blood Urea Nitrogen 19 mg/dL (8-23); Calcium 9.9 mg/dL (8.6-10.3); Carbon Dioxide 19 mEq/L (23-29); Chloride 108 mEq/L (98-107); Glucose 148 mg/dL (70-105); Osmolality,Calculated 287 (280-300); Potassium 3.7 mEq/L (3.5-5.1); Sodium 136 mEq/L (136-145); eGFR For African Americans > 60 (> 60); eGFR For Non-African Americans 58 (> 60)
[2020-08-11] MEDS: *HR* Heparin 5,000 UNIT/ML VIAL SQ SCH ×3 (05:45→20:09)
[2020-08-11] MEDS: Pantoprazole 40 MG VIAL IVP SCH ×2 (05:45→17:14)
[2020-08-11] MEDS: Sucralfate 1 GM TABLET PO SCH ×4 (05:45→20:09)
[2020-08-11] MEDS: Budesonide/Formoterol 160/4.5 1 PUFF INH IH SCH ×2 (07:46→22:49)
[2020-08-11] MEDS: Gabapentin 300 MG CAPSULE PO SCH ×2 (08:50→11:07)
[2020-08-11] MEDS ORDERED: 0.9 % Sodium Chloride 1,000 ML IVC SCH (10:45)
[2020-08-11 16:37] LABS: Alanine Aminotransferase 9 Units/L (7-52); Albumin 3.9 g/dL (3.5-5.7); Albumin/Globulin Ratio 1.7 (1.1-2.2); Alkaline Phosphatase 130 Units/L (34-104); Aspartate Amino Transferase 11 Units/L (13-39); Bilirubin,Direct 0.1 mg/dL (0.0-0.2); Bilirubin,Indirect 0.1 mg/dL (0.0-1.0); Bilirubin,Total 0.2 mg/dL (0.3-1.0); Globulin 2.3 g/dL (2.4-3.5); Total Protein 6.2 g/dL (6.4-8.9)
[2020-08-11] MEDS: Gabapentin 400 MG CAPSULE PO SCH (20:09)
[2020-08-11] MEDS: traZODone 50 MG TABLET PO SCH (20:10)
[2020-08-12] MEDS: *HR* HYDROcodone/Acet 10/325 mg TABLET PO PRN ×4 (00:47→20:27)
[2020-08-12 04:06] LABS: Bilirubin,Urine Negative (Negative); Blood,Urine Negative (Negative); Clarity,Urine Clear (Clear); Color,Urine Light-Yellow (Yellow); Glucose,Urine (UA) Normal (Normal); Ketones,Urine Negative (Negative); Leukocyte Esterase,Urine Negative (Negative); Nitrite,Urine Negative (Negative); PH,Urine 6.5 pH Units (5.0-8.0); Protein,Urine Trace mg/dL (Neg-Trace); Specific Gravity,Urine 1.015 (1.010-1.025); Urobilinogen,Urine Normal (Normal)
[2020-08-12] MEDS: Pantoprazole 40 MG VIAL IVP SCH ×2 (06:58→17:08)
[2020-08-12] MEDS: *HR* Heparin 5,000 UNIT/ML VIAL SQ SCH ×2 (06:59→15:32)
[2020-08-12 07:28] LABS: Hematocrit 38.7 % (35.3-44.9); Hemoglobin 12.1 g/dL (11.5-15.4); Mean Corpuscular HGB Conc 31.3 g/dL (31.6-35.5); Mean Corpuscular Hemoglobin 29.2 pg (28.0-33.3); Mean Corpuscular Volume 93.3 fL (83.0-100.0); Mean Platelet Volume 12.2 fL (9.4-12.4); Platelet Count 294 K/mcL (140-400); Red Blood Count 4.15 M/mcL (3.82-4.97); Red Cell Distribution Width 14.7 % (11.5-14.5); White Blood Count 7.7 K/mcL (4.3-11.1)
[2020-08-12] MEDS ORDERED: Lidocaine -MPF 2% 2 ML VIAL ONE (07:39)
[2020-08-12] MEDS ORDERED: *HR* Propofol 200 MG/20 ML VIAL IVP ONE (07:39)
[2020-08-12 07:44] LABS: BUN/Creatinine Ratio 17 (6-26); Blood Urea Nitrogen 17 mg/dL (8-23); Calcium 9.4 mg/dL (8.6-10.3); Carbon Dioxide 20 mEq/L (23-29); Chloride 113 mEq/L (98-107); Glucose 121 mg/dL (70-105); Osmolality,Calculated 295 (280-300); Potassium 3.8 mEq/L (3.5-5.1); Sodium 141 mEq/L (136-145); eGFR For African Americans > 60 (> 60); eGFR For Non-African Americans 56 (> 60)
[2020-08-12] MEDS: Budesonide/Formoterol 160/4.5 1 PUFF INH IH SCH ×2 (08:52→20:16)
[2020-08-12] MEDS ORDERED: Simethicone 80 MG TAB.CHEW PO PRN (09:34)
[2020-08-12] MEDS: Sucralfate 1 GM TABLET PO SCH ×4 (11:29→20:27)
[2020-08-12] MEDS: Gabapentin 300 MG CAPSULE PO SCH ×2 (11:30→11:32)
[2020-08-12] MEDS ORDERED: Acetaminophen IV 500 MG/50 ML BAG IVPB ONE (16:10)
[2020-08-12 16:24] LABS: Chol/HDL Ratio 9.2 (0-4.9); Cholesterol 240 mg/dL (< 200); HDL Cholesterol 26 mg/dL (40-59); Triglycerides 412 mg/dL (< 150)
[2020-08-12] MEDS: Gabapentin 400 MG CAPSULE PO SCH (20:27)
[2020-08-12] MEDS: traZODone 50 MG TABLET PO SCH (20:27)
[2020-08-12] MEDS: tiZANidine 4 MG TABLET PO PRN (20:28)
[2020-08-13 03:15] LABS: Hematocrit 39.3 % (35.3-44.9); Hemoglobin 12.7 g/dL (11.5-15.4); Mean Corpuscular HGB Conc 32.3 g/dL (31.6-35.5); Mean Corpuscular Hemoglobin 29.6 pg (28.0-33.3); Mean Corpuscular Volume 91.6 fL (83.0-100.0); Mean Platelet Volume 12.2 fL (9.4-12.4); Platelet Count 284 K/mcL (140-400); Red Blood Count 4.29 M/mcL (3.82-4.97); Red Cell Distribution Width 14.5 % (11.5-14.5)
[2020-08-13] MEDS: *HR* HYDROcodone/Acet 10/325 mg TABLET PO PRN ×2 (05:58→12:06)
[2020-08-13] MEDS: Pantoprazole 40 MG VIAL IVP SCH (05:58)
[2020-08-13] MEDS: Gabapentin 300 MG CAPSULE PO SCH ×2 (07:28→12:07)
[2020-08-13] MEDS: Sucralfate 1 GM TABLET PO SCH ×2 (07:28→12:07)
[2020-08-13 08:54] LABS: BUN/Creatinine Ratio 15 (6-26); Blood Urea Nitrogen 15 mg/dL (8-23); Calcium 10.2 mg/dL (8.6-10.3); Carbon Dioxide 23 mEq/L (23-29); Chloride 108 mEq/L (98-107); Glucose 99 mg/dL (70-105); Osmolality,Calculated 285 (280-300); Potassium 4.4 mEq/L (3.5-5.1); Sodium 137 mEq/L (136-145); eGFR For African Americans > 60 (> 60); eGFR For Non-African Americans 58 (> 60)
[2020-08-13] MEDS ORDERED: Aspirin Enteric Coated 81 MG Tablet PO SCH (09:45)
[2020-08-13] MEDS: Budesonide/Formoterol 160/4.5 1 PUFF INH IH SCH (10:07)
[2020-08-13 12:02] VITALS: BP 127/69
== END 2020-08-13 12:57 | disposition home or self-care (01) ==
LOC: EMEROOARM 16:14 → 3BNU 16:14
PROVIDERS: ADMIT Internal Medicine; ATTEND Internal Medicine
PROC: ENDOEBX (2020-08-12 09:45)

== ENCOUNTER 2020-08-31 11:55 | Inpatient (IN) ==
[2020-08-31] MEDS ORDERED: *HR* Midazolam HCl 2 MG/2 ML VIAL ONE (12:57)
[2020-08-31] MEDS ORDERED: *HR* FentaNYL (PF) 100 MCG/2 ML VIAL ONE (12:57)
[2020-08-31] MEDS ORDERED: Tirofiban 12.5 MG/250ML 12.5 MG/250 ML BAG ONE (13:18)
[2020-08-31] MEDS ORDERED: ISOVUE-370 200 ML INFUS..BTL ONE ×2 (13:25→14:13)
[2020-08-31] MEDS ORDERED: Pantoprazole 80 MG in 0.9 % Sodium Chloride 50 ML IVPB ONE (13:40)
[2020-08-31] MEDS ORDERED: Perflutren Lipid Microsphere 1.3 ML in 0.9 % Sodium Chloride 8.7 ML IVP PRN ×2 (14:01→14:02)
[2020-08-31] MEDS ORDERED: tiZANidine 4 MG TABLET PO PRN (14:05)
[2020-08-31] MEDS: Pantoprazole 40 MG in 0.9 % Sodium Chloride Mini Bag 100 ML IVC SCH ×2 (14:12→19:52)
[2020-08-31] MEDS ORDERED: 0.9 % Sodium Chloride 2,000 ML ONE (14:13)
[2020-08-31] MEDS ORDERED: Nitroglycerin 1,000 MCG/5 ML VIAL IV ONE (14:13)
[2020-08-31] MEDS ORDERED: *HR* Heparin 10,000 UNIT/10 ML VIAL ONE (14:13)
[2020-08-31] MEDS ORDERED: Heparin 1,000 UNITS/500 mL 500 ML ONE (14:13)
[2020-08-31] MEDS ORDERED: Tirofiban 12.5 MG/250ML 12.5 MG/250 ML BAG IVC SCH (14:15)
[2020-08-31] MEDS: *HR* HYDROcodone/Acet 10/325 mg TABLET PO PRN ×2 (15:12→21:25)
[2020-08-31] MEDS ORDERED: Nitroglycerin 0.4 MG TAB.SUBL SL PRN (15:35)
[2020-08-31] MEDS: Metoprolol XL (24 HR) Succ 25 MG TAB.ER.24H PO SCH (16:52)
[2020-08-31] MEDS: Nicotine 14 MG PATCH.TD24 TD SCH (16:53)
[2020-08-31] MEDS: Famotidine 20 MG TABLET PO SCH (21:25)
[2020-08-31] MEDS: traZODone 50 MG TABLET PO SCH (21:25)
[2020-08-31] MEDS: Sucralfate 1 GM TABLET PO SCH (21:25)
[2020-09-01] MEDS: Pantoprazole 40 MG in 0.9 % Sodium Chloride Mini Bag 100 ML IVC SCH ×3 (00:43→10:57)
[2020-09-01 01:26] LABS: Basophils # 0.1 K/mcL (0.0-0.2); Basophils % 0.9 %; Eosinophils # 0.2 K/mcL (0.0-0.6); Eosinophils % 2.8 %; Hematocrit 33.3 % (35.3-44.9); Hemoglobin 10.7 g/dL (11.5-15.4); Immature Granulocytes % 0.4 % (0-4); Lymphocytes # 2.1 K/mcL (0.6-4.6); Lymphocytes % 28.5 %; Mean Corpuscular HGB Conc 32.1 g/dL (31.6-35.5); Mean Corpuscular Hemoglobin 29.7 pg (28.0-33.3); Mean Corpuscular Volume 92.5 fL (83.0-100.0); Mean Platelet Volume 11.4 fL (9.4-12.4); Monocytes # 0.7 K/mcL (0.0-1.3); Monocytes % 9.2 %; Neutrophils # 4.3 K/mcL (1.6-8.9); Platelet Count 309 K/mcL (140-400); Red Cell Distribution Width 14.3 % (11.5-14.5); Segmented Neutrophils % 58.2 %; White Blood Count 7.4 K/mcL (4.3-11.1)
[2020-09-01 01:44] LABS: BUN/Creatinine Ratio 17 (6-26); Blood Urea Nitrogen 15 mg/dL (8-23); Carbon Dioxide 19 mEq/L (23-29); Chloride 114 mEq/L (98-107); Glucose 115 mg/dL (70-105); Osmolality,Calculated 292 (280-300); Potassium 3.3 mEq/L (3.5-5.1); Sodium 140 mEq/L (136-145); eGFR For African Americans > 60 (> 60); eGFR For Non-African Americans > 60 (> 60)
[2020-09-01] MEDS: *HR* HYDROcodone/Acet 10/325 mg TABLET PO PRN ×3 (04:06→17:27)
[2020-09-01] MEDS: Aspirin Enteric Coated 81 MG Tablet PO SCH (07:42)
[2020-09-01] MEDS: Gabapentin 300 MG CAPSULE PO SCH ×2 (07:42→12:32)
[2020-09-01] MEDS: Nicotine 14 MG PATCH.TD24 TD SCH (07:42)
[2020-09-01] MEDS: Budesonide/Formoterol 160/4.5 1 PUFF INH IH SCH ×2 (08:08→22:27)
[2020-09-01] MEDS ORDERED: NON-FORMULARY MEDICATION 1 EACH EACH (Pantoprazole Sodium [Protonix] 40 MG Tablet.Dr) PO SCH (09:00)
[2020-09-01] MEDS: Metoprolol XL (24 HR) Succ 25 MG TAB.ER.24H PO SCH (10:54)
[2020-09-01 12:25] LABS: Hematocrit 39.2 % (35.3-44.9); Hemoglobin 12.2 g/dL (11.5-15.4)
[2020-09-01] MEDS: *HR* Heparin 5,000 UNIT/ML VIAL SQ SCH (17:28)
[2020-09-01] MEDS: Gabapentin 400 MG CAPSULE PO SCH ×2 (20:22)
[2020-09-01] MEDS: Famotidine 20 MG TABLET PO SCH (20:23)
[2020-09-01] MEDS: traZODone 50 MG TABLET PO SCH (20:23)
[2020-09-01] MEDS: Sucralfate 1 GM TABLET PO SCH (20:23)
[2020-09-01] MEDS: Ondansetron ODT 4 MG TAB.RAPDIS SL PRN (20:35)
[2020-09-02] MEDS ORDERED: Mag Hydrox/Al Hydrox/Simeth 30 ML UDC PO PRN (00:13)
[2020-09-02] MEDS: *HR* HYDROcodone/Acet 10/325 mg TABLET PO PRN ×2 (00:30→09:01)
[2020-09-02 03:22] LABS: Basophils # 0.1 K/mcL (0.0-0.2); Basophils % 0.7 %; Eosinophils # 0.2 K/mcL (0.0-0.6); Eosinophils % 2.7 %; Hematocrit 33.8 % (35.3-44.9); Immature Granulocytes % 0.5 % (0-4); Lymphocytes # 2.4 K/mcL (0.6-4.6); Lymphocytes % 29.6 %; Mean Corpuscular HGB Conc 31.4 g/dL (31.6-35.5); Mean Corpuscular Volume 92.3 fL (83.0-100.0); Mean Platelet Volume 11.4 fL (9.4-12.4); Monocytes # 0.8 K/mcL (0.0-1.3); Monocytes % 9.4 %; Neutrophils # 4.6 K/mcL (1.6-8.9); Platelet Count 305 K/mcL (140-400); Red Blood Count 3.66 M/mcL (3.82-4.97); Red Cell Distribution Width 14.3 % (11.5-14.5); Segmented Neutrophils % 57.1 %
[2020-09-02 03:27] LABS: Hemoglobin 10.6 g/dL (11.5-15.4)
[2020-09-02 03:29] LABS: BUN/Creatinine Ratio 14 (6-26); Blood Urea Nitrogen 13 mg/dL (8-23); Calcium 8.9 mg/dL (8.6-10.3); Carbon Dioxide 19 mEq/L (23-29); Chloride 111 mEq/L (98-107); Glucose 115 mg/dL (70-105); Magnesium 1.8 mg/dL (1.6-2.6); Osmolality,Calculated 291 (280-300); Phosphorous 3.1 mg/dL (2.7-4.5); Potassium 3.7 mEq/L (3.5-5.1); Sodium 140 mEq/L (136-145); eGFR For African Americans > 60 (> 60); eGFR For Non-African Americans > 60 (> 60)
[2020-09-02] MEDS: Ondansetron ODT 4 MG TAB.RAPDIS SL PRN (04:43)
[2020-09-02] MEDS: *HR* Heparin 5,000 UNIT/ML VIAL SQ SCH (04:43)
[2020-09-02 07:47] VITALS: BP 118/75
[2020-09-02] MEDS: Budesonide/Formoterol 160/4.5 1 PUFF INH IH SCH (08:18)
[2020-09-02] MEDS ORDERED: lisinopriL 5 MG TABLET PO SCH (09:00)
[2020-09-02] MEDS: Gabapentin 300 MG CAPSULE PO SCH (09:01)
[2020-09-02] MEDS: Aspirin Enteric Coated 81 MG Tablet PO SCH (09:01)
[2020-09-02] MEDS: Metoprolol XL (24 HR) Succ 25 MG TAB.ER.24H PO SCH (09:02)
[2020-09-02] MEDS: Nicotine 14 MG PATCH.TD24 TD SCH (09:04)
[2020-09-02] MEDS ORDERED: Isosorbide MONOnitrate (24 HR) 30 MG TAB.ER.24H PO SCH (10:30)
== END 2020-09-02 11:27 | disposition home or self-care (01) | DRG 174 ==
LOC: PREOBSVTOIN 12:08 → 2NNU 14:05 → 3BNU 09-01 17:08
PROVIDERS: ADMIT Internal Medicine Cardiovascular Disease; ATTEND Internal Medicine Cardiovascular Disease

== ENCOUNTER 2020-09-11 13:17 | Inpatient (IN) ==
[2020-09-11 14:17] LABS: Basophils # 0.1 K/mcL (0.0-0.2); Eosinophils # 0.1 K/mcL (0.0-0.6); Hematocrit 44.6 % (35.3-44.9); Hemoglobin 14.2 g/dL (11.5-15.4); Immature Granulocytes % 0.6 % (0-4); Lymphocytes # 2.6 K/mcL (0.6-4.6); Lymphocytes % 24.7 %; Mean Corpuscular HGB Conc 31.8 g/dL (31.6-35.5); Mean Corpuscular Hemoglobin 28.8 pg (28.0-33.3); Mean Corpuscular Volume 90.5 fL (83.0-100.0); Mean Platelet Volume 11.3 fL (9.4-12.4); Monocytes # 0.8 K/mcL (0.0-1.3); Monocytes % 7.4 %; Neutrophils # 6.9 K/mcL (1.6-8.9); Platelet Count 505 K/mcL (140-400); Red Blood Count 4.93 M/mcL (3.82-4.97); Red Cell Distribution Width 13.7 % (11.5-14.5); Segmented Neutrophils % 65.3 %; White Blood Count 10.6 K/mcL (4.3-11.1)
[2020-09-11 14:28] LABS: INR 1.1; Prothrombin Time 12.9 Seconds (9.4-12.1)
[2020-09-11 14:31] LABS: Activated Partial Thrombo Time 33.1 Seconds (26.0-36.0)
[2020-09-11 14:43] LABS: Troponin I 0.04 ng/mL (< 0.04)
[2020-09-11 14:51] LABS: BUN/Creatinine Ratio 13 (6-26); Blood Urea Nitrogen 14 mg/dL (8-23); Calcium 10.6 mg/dL (8.6-10.3); Carbon Dioxide 22 mEq/L (23-29); Chloride 107 mEq/L (98-107); Glucose 105 mg/dL (70-105); Osmolality,Calculated 289 (280-300); Potassium 3.9 mEq/L (3.5-5.1); Sodium 139 mEq/L (136-145); eGFR For African Americans > 60 (> 60); eGFR For Non-African Americans 50 (> 60)
[2020-09-11] MEDS ORDERED: Isovue-370 500 ML BOTTLE IVP ONE ×2 (15:05→17:05)
[2020-09-11] MEDS ORDERED: *HR* FentaNYL (PF) 100 MCG/2 ML VIAL IVP ONE (15:54)
[2020-09-11] MEDS ORDERED: *HR* Heparin 5,000 UNIT/ML VIAL IVP PRN ×2 (16:26)
[2020-09-11] MEDS ORDERED: *HR* Heparin 5,000 UNIT/ML VIAL IVP ONE (16:26)
[2020-09-11] MEDS ORDERED: Nitroglycerin 0.4 MG TAB.SUBL SL PRN (17:02)
[2020-09-11] MEDS ORDERED: Naloxone 0.4 MG/ML INJ IVP PRN (17:04)
[2020-09-11] MEDS ORDERED: Ipratropium/Albuterol Neb 3 ML IH PRN (17:11)
[2020-09-11] MEDS ORDERED: Pantoprazole 40 MG VIAL IVP SCH (17:15)
[2020-09-11] MEDS: Heparin 25,000UNIT/250ML 1/2NS 25,000 UNIT/250 ML IV.SOLN IVC SCH (17:15)
[2020-09-11 17:24] LABS: Hematocrit 41.6 % (35.3-44.9); Hemoglobin 13.5 g/dL (11.5-15.4); Mean Corpuscular HGB Conc 32.5 g/dL (31.6-35.5); Mean Corpuscular Hemoglobin 29.7 pg (28.0-33.3); Mean Corpuscular Volume 91.4 fL (83.0-100.0); Mean Platelet Volume 11.1 fL (9.4-12.4); Platelet Count 475 K/mcL (140-400); Red Blood Count 4.55 M/mcL (3.82-4.97); Red Cell Distribution Width 13.7 % (11.5-14.5); White Blood Count 9.9 K/mcL (4.3-11.1)
[2020-09-11 17:35] LABS: Heparin anti-factor XA UFH 0.04 IU/mL (0.30-0.70); INR 1.1; Prothrombin Time 12.7 Seconds (9.4-12.1)
[2020-09-11] MEDS ORDERED: 0.9 % Sodium Chloride 250 ML IVC ONE (17:39)
[2020-09-11] MEDS: traZODone 50 MG TABLET PO SCH (20:02)
[2020-09-11] MEDS: Sucralfate 1 GM TABLET PO SCH (20:02)
[2020-09-11] MEDS: ALPRAZolam 0.25 MG TABLET PO PRN (20:03)
[2020-09-11] MEDS: Pantoprazole 40 MG VIAL IVP SCH (20:03)
[2020-09-11] MEDS: Ondansetron 4 MG/2 ML VIAL IVP PRN (20:20)
[2020-09-11] MEDS ORDERED: Famotidine 20 MG TABLET PO SCH (21:00)
[2020-09-11] MEDS ORDERED: *HR* HYDROcodone/Acet 7.5/325 mg TABLET PO ONE (21:11)
[2020-09-11] MEDS: Budesonide/Formoterol 160/4.5 1 PUFF INH IH SCH (21:20)
[2020-09-12 01:28] LABS: Basophils # 0.1 K/mcL (0.0-0.2); Basophils % 0.8 %; Eosinophils # 0.3 K/mcL (0.0-0.6); Eosinophils % 2.8 %; Hematocrit 39.4 % (35.3-44.9); Hemoglobin 12.6 g/dL (11.5-15.4); Immature Granulocytes % 0.5 % (0-4); Lymphocytes # 3.7 K/mcL (0.6-4.6); Lymphocytes % 36.5 %; Mean Corpuscular Hemoglobin 28.8 pg (28.0-33.3); Mean Platelet Volume 11.2 fL (9.4-12.4); Monocytes # 0.8 K/mcL (0.0-1.3); Monocytes % 7.6 %; Neutrophils # 5.2 K/mcL (1.6-8.9); Platelet Count 459 K/mcL (140-400); Red Blood Count 4.38 M/mcL (3.82-4.97); Red Cell Distribution Width 13.7 % (11.5-14.5); Segmented Neutrophils % 51.8 %
[2020-09-12 01:50] LABS: Blood Urea Nitrogen 18 mg/dL (8-23); Calcium 9.6 mg/dL (8.6-10.3); Carbon Dioxide 21 mEq/L (23-29); Chloride 110 mEq/L (98-107); Glucose 136 mg/dL (70-105); Osmolality,Calculated 292 (280-300); Phosphorous 3.1 mg/dL (2.7-4.5); Potassium 3.3 mEq/L (3.5-5.1); Sodium 139 mEq/L (136-145)
[2020-09-12 02:29] LABS: BUN/Creatinine Ratio 17 (6-26); eGFR For African Americans > 60 (> 60); eGFR For Non-African Americans 53 (> 60)
[2020-09-12] MEDS ORDERED: Acetaminophen 325 MG TABLET PO PRN (07:54)
[2020-09-12] MEDS: lisinopriL 5 MG TABLET PO SCH (08:57)
[2020-09-12] MEDS: Metoprolol XL (24 HR) Succ 25 MG TAB.ER.24H PO SCH (08:57)
[2020-09-12] MEDS: Aspirin Enteric Coated 81 MG Tablet PO SCH (09:04)
[2020-09-12] MEDS: Pantoprazole 40 MG VIAL IVP SCH ×2 (09:05→20:04)
[2020-09-12] MEDS: ALPRAZolam 0.25 MG TABLET PO PRN (09:12)
[2020-09-12] MEDS: Budesonide/Formoterol 160/4.5 1 PUFF INH IH SCH ×2 (10:39→22:18)
[2020-09-12] MEDS: *HR* HYDROcodone/Acet 5/325 mg TABLET PO PRN ×2 (14:53→21:12)
[2020-09-12] MEDS: Famotidine 20 MG TABLET PO SCH (20:03)
[2020-09-12] MEDS: traZODone 50 MG TABLET PO SCH (20:04)
[2020-09-12] MEDS: Gabapentin 400 MG CAPSULE PO SCH (20:04)
[2020-09-12] MEDS: Sucralfate 1 GM TABLET PO SCH (20:04)
[2020-09-12] MEDS: Ondansetron 4 MG/2 ML VIAL IVP PRN (20:13)
[2020-09-12] MEDS ORDERED: Famotidine 20 MG TABLET PO SCH (21:00)
[2020-09-12] MEDS: Heparin 25,000UNIT/250ML 1/2NS 25,000 UNIT/250 ML IV.SOLN IVC SCH (21:13)
[2020-09-13 01:53] LABS: Basophils # 0.1 K/mcL (0.0-0.2); Basophils % 0.9 %; Eosinophils # 0.3 K/mcL (0.0-0.6); Eosinophils % 3.1 %; Hematocrit 38.2 % (35.3-44.9); Immature Granulocytes % 0.4 % (0-4); Lymphocytes # 3.6 K/mcL (0.6-4.6); Lymphocytes % 37.4 %; Mean Corpuscular HGB Conc 31.4 g/dL (31.6-35.5); Mean Corpuscular Hemoglobin 28.8 pg (28.0-33.3); Mean Corpuscular Volume 91.8 fL (83.0-100.0); Mean Platelet Volume 11.3 fL (9.4-12.4); Monocytes # 0.8 K/mcL (0.0-1.3); Monocytes % 8.1 %; Neutrophils # 4.9 K/mcL (1.6-8.9); Platelet Count 410 K/mcL (140-400); Red Blood Count 4.16 M/mcL (3.82-4.97); Red Cell Distribution Width 14.2 % (11.5-14.5); Segmented Neutrophils % 50.1 %; White Blood Count 9.7 K/mcL (4.3-11.1)
[2020-09-13 02:12] LABS: BUN/Creatinine Ratio 16 (6-26); Blood Urea Nitrogen 17 mg/dL (8-23); Calcium 9.7 mg/dL (8.6-10.3); Carbon Dioxide 21 mEq/L (23-29); Chloride 111 mEq/L (98-107); Glucose 120 mg/dL (70-105); Magnesium 1.9 mg/dL (1.6-2.6); Osmolality,Calculated 291 (280-300); Potassium 3.7 mEq/L (3.5-5.1); Sodium 139 mEq/L (136-145); eGFR For African Americans > 60 (> 60); eGFR For Non-African Americans 54 (> 60)
[2020-09-13] MEDS: Budesonide/Formoterol 160/4.5 1 PUFF INH IH SCH ×2 (07:46→20:06)
[2020-09-13] MEDS: Metoprolol XL (24 HR) Succ 25 MG TAB.ER.24H PO SCH (08:36)
[2020-09-13] MEDS: Aspirin Enteric Coated 81 MG Tablet PO SCH (08:36)
[2020-09-13] MEDS: Gabapentin 300 MG CAPSULE PO SCH ×2 (08:37→11:45)
[2020-09-13] MEDS: *HR* HYDROcodone/Acet 10/325 mg TABLET PO PRN ×3 (08:37→20:57)
[2020-09-13] MEDS: Pantoprazole 40 MG VIAL IVP SCH ×2 (08:37→20:41)
[2020-09-13] MEDS: lisinopriL 5 MG TABLET PO SCH (08:37)
[2020-09-13] MEDS: *HR* HYDROcodone/Acet 5/325 mg TABLET PO PRN (17:03)
[2020-09-13] MEDS: ALPRAZolam 0.25 MG TABLET PO PRN (19:08)
[2020-09-13] MEDS: Heparin 25,000UNIT/250ML 1/2NS 25,000 UNIT/250 ML IV.SOLN IVC SCH (19:09)
[2020-09-13] MEDS: Gabapentin 400 MG CAPSULE PO SCH (20:40)
[2020-09-13] MEDS: traZODone 50 MG TABLET PO SCH (20:40)
[2020-09-13] MEDS: Sucralfate 1 GM TABLET PO SCH (20:41)
[2020-09-13] MEDS: Famotidine 20 MG TABLET PO SCH (20:41)
[2020-09-14] MEDS: *HR* HYDROcodone/Acet 5/325 mg TABLET PO PRN ×3 (01:05→16:21)
[2020-09-14 01:09] LABS: Basophils # 0.1 K/mcL (0.0-0.2); Basophils % 0.9 %; Eosinophils # 0.3 K/mcL (0.0-0.6); Eosinophils % 3.3 %; Hematocrit 35.7 % (35.3-44.9); Hemoglobin 11.2 g/dL (11.5-15.4); Immature Granulocytes % 0.3 % (0-4); Lymphocytes # 3.3 K/mcL (0.6-4.6); Lymphocytes % 37.8 %; Mean Corpuscular HGB Conc 31.4 g/dL (31.6-35.5); Mean Corpuscular Hemoglobin 29.6 pg (28.0-33.3); Mean Corpuscular Volume 94.2 fL (83.0-100.0); Mean Platelet Volume 11.7 fL (9.4-12.4); Monocytes # 0.5 K/mcL (0.0-1.3); Monocytes % 5.9 %; Neutrophils # 4.5 K/mcL (1.6-8.9); Platelet Count 377 K/mcL (140-400); Red Blood Count 3.79 M/mcL (3.82-4.97); Segmented Neutrophils % 51.8 %; White Blood Count 8.8 K/mcL (4.3-11.1)
[2020-09-14 01:30] LABS: BUN/Creatinine Ratio 19 (6-26); Blood Urea Nitrogen 20 mg/dL (8-23); Calcium 9.3 mg/dL (8.6-10.3); Carbon Dioxide 20 mEq/L (23-29); Chloride 110 mEq/L (98-107); Glucose 142 mg/dL (70-105); Osmolality,Calculated 295 (280-300); Potassium 3.6 mEq/L (3.5-5.1); Sodium 140 mEq/L (136-145); eGFR For African Americans > 60 (> 60); eGFR For Non-African Americans 54 (> 60)
[2020-09-14] MEDS: *HR* HYDROcodone/Acet 10/325 mg TABLET PO PRN ×3 (05:31→21:48)
[2020-09-14] MEDS: ALPRAZolam 0.25 MG TABLET PO PRN ×2 (07:08→21:48)
[2020-09-14] MEDS: Metoprolol XL (24 HR) Succ 25 MG TAB.ER.24H PO SCH (08:39)
[2020-09-14] MEDS: Gabapentin 300 MG CAPSULE PO SCH ×2 (08:39→12:09)
[2020-09-14] MEDS: lisinopriL 5 MG TABLET PO SCH (08:39)
[2020-09-14] MEDS: Aspirin Enteric Coated 81 MG Tablet PO SCH (08:39)
[2020-09-14] MEDS: Pantoprazole 40 MG VIAL IVP SCH ×2 (08:39→21:43)
[2020-09-14] MEDS: Budesonide/Formoterol 160/4.5 1 PUFF INH IH SCH ×2 (11:53→19:50)
[2020-09-14] MEDS ORDERED: Apixaban 5 MG TABLET PO SCH (12:18)
[2020-09-14] MEDS ORDERED: Gadolinium Contrast Agent (WT Based) IV PRN (12:55)
[2020-09-14] MEDS ORDERED: *HR* LORazepam 2 MG/ML VIAL IVP ONE (13:18)
[2020-09-14] MEDS ORDERED: *HR* Heparin 5,000 UNIT/ML VIAL IVP PRN (15:22)
[2020-09-14] MEDS ORDERED: Heparin 25,000UNIT/250ML 1/2NS 25,000 UNIT/250 ML IV.SOLN IVC SCH ×2 (15:30)
[2020-09-14] MEDS: methylPREDNISolone 125 MG/2 ML VIAL IVP SCH (16:05)
[2020-09-14] MEDS: Heparin 25,000UNIT/250ML 1/2NS 25,000 UNIT/250 ML IV.SOLN IVC SCH (16:22)
[2020-09-14] MEDS: Famotidine 20 MG TABLET PO SCH (21:42)
[2020-09-14] MEDS: Gabapentin 400 MG CAPSULE PO SCH (21:43)
[2020-09-14] MEDS: traZODone 50 MG TABLET PO SCH (21:43)
[2020-09-14] MEDS: Sucralfate 1 GM TABLET PO SCH (21:43)
[2020-09-14] MEDS: *HR* Heparin 5,000 UNIT/ML VIAL IVP PRN (21:43)
[2020-09-14] MEDS: Ondansetron 4 MG/2 ML VIAL IVP PRN (21:55)
[2020-09-15 04:26] LABS: Basophils # 0.1 K/mcL (0.0-0.2); Basophils % 0.4 %; Hematocrit 36.9 % (35.3-44.9); Hemoglobin 11.6 g/dL (11.5-15.4); Immature Granulocytes % 0.8 % (0-4); Lymphocytes # 1.1 K/mcL (0.6-4.6); Mean Corpuscular HGB Conc 31.4 g/dL (31.6-35.5); Mean Corpuscular Hemoglobin 28.9 pg (28.0-33.3); Mean Corpuscular Volume 91.8 fL (83.0-100.0); Mean Platelet Volume 11.7 fL (9.4-12.4); Monocytes # 0.2 K/mcL (0.0-1.3); Monocytes % 1.8 %; Neutrophils # 10.6 K/mcL (1.6-8.9); Platelet Count 370 K/mcL (140-400); Red Blood Count 4.02 M/mcL (3.82-4.97); Red Cell Distribution Width 13.9 % (11.5-14.5)
[2020-09-15] MEDS: *HR* HYDROcodone/Acet 10/325 mg TABLET PO PRN ×2 (04:40→14:57)
[2020-09-15] MEDS: methylPREDNISolone 125 MG/2 ML VIAL IVP SCH ×2 (04:40→16:32)
[2020-09-15 04:43] LABS: BUN/Creatinine Ratio 17 (6-26); Blood Urea Nitrogen 18 mg/dL (8-23); Calcium 10.1 mg/dL (8.6-10.3); Carbon Dioxide 21 mEq/L (23-29); Chloride 110 mEq/L (98-107); Glucose 230 mg/dL (70-105); Osmolality,Calculated 297 (280-300); Potassium 3.9 mEq/L (3.5-5.1); Sodium 139 mEq/L (136-145); eGFR For African Americans > 60 (> 60); eGFR For Non-African Americans 53 (> 60)
[2020-09-15] MEDS: *HR* Heparin 5,000 UNIT/ML VIAL IVP PRN (04:50)
[2020-09-15] MEDS: Budesonide/Formoterol 160/4.5 1 PUFF INH IH SCH ×2 (07:20→19:43)
[2020-09-15] MEDS: Gabapentin 300 MG CAPSULE PO SCH ×2 (10:15→14:57)
[2020-09-15] MEDS: Aspirin Enteric Coated 81 MG Tablet PO SCH (10:16)
[2020-09-15] MEDS: Metoprolol XL (24 HR) Succ 25 MG TAB.ER.24H PO SCH (10:17)
[2020-09-15] MEDS: lisinopriL 5 MG TABLET PO SCH (10:17)
[2020-09-15] MEDS: Pantoprazole 40 MG VIAL IVP SCH (10:21)
[2020-09-15] MEDS ORDERED: *HR* Dextrose 50 % in Water (Vial) 50 ML VIAL IVP PRN (10:56)
[2020-09-15] MEDS ORDERED: D5% in Water 1,000 ML IVC PRN (10:56)
[2020-09-15] MEDS ORDERED: Dextrose Gel 15 GM/37.5 ML TUBE PO PRN ×2 (10:56)
[2020-09-15] MEDS: ALPRAZolam 0.25 MG TABLET PO PRN (11:17)
[2020-09-15] MEDS ORDERED: tiZANidine 4 MG TABLET PO ONE (12:33)
[2020-09-15] MEDS: Insulin LISPRO 300 UNITS/3 ML VIAL SUBQ SCH ×2 (12:44→16:33)
[2020-09-15 13:11] LABS: Bacteria,Urine Few per hpf (None-Few); Bilirubin,Urine Negative (Negative); Blood,Urine Negative (Negative); Clarity,Urine Clear (Clear); Color,Urine Light-Yellow (Yellow); Glucose,Urine (UA) 200 mg/dL (Normal); Ketones,Urine Negative (Negative); Leukocyte Esterase,Urine Negative (Negative); Nitrite,Urine Negative (Negative); Protein,Urine Negative (Neg-Trace); RBC,Urine 0-3 per hpf (0-3); Specific Gravity,Urine 1.021 (1.010-1.025); Squamous Epithelial Cell,Urine Few per hpf (None-Few); Urobilinogen,Urine Normal (Normal); WBC,Urine 0-3 per hpf (0-3)
[2020-09-15] MEDS: Heparin 25,000UNIT/250ML 1/2NS 25,000 UNIT/250 ML IV.SOLN IVC SCH (19:25)
[2020-09-15] MEDS: traZODone 50 MG TABLET PO SCH (20:53)
[2020-09-15] MEDS: Gabapentin 400 MG CAPSULE PO SCH (20:53)
[2020-09-15] MEDS: Famotidine 20 MG TABLET PO SCH (20:53)
[2020-09-15] MEDS: Sucralfate 1 GM TABLET PO SCH (20:53)
[2020-09-15] MEDS: *HR* HYDROcodone/Acet 5/325 mg TABLET PO PRN (20:55)
[2020-09-16 01:34] LABS: BUN/Creatinine Ratio 17 (6-26); Blood Urea Nitrogen 18 mg/dL (8-23); Calcium 10.2 mg/dL (8.6-10.3); Carbon Dioxide 19 mEq/L (23-29); Chloride 110 mEq/L (98-107); Glucose 280 mg/dL (70-105); Osmolality,Calculated 298 (280-300); Potassium 4.1 mEq/L (3.5-5.1); Sodium 138 mEq/L (136-145); eGFR For African Americans > 60 (> 60); eGFR For Non-African Americans 51 (> 60)
[2020-09-16] MEDS: Acetaminophen 325 MG TABLET PO PRN ×2 (01:44→20:10)
[2020-09-16] MEDS: Ondansetron 4 MG/2 ML VIAL IVP PRN ×3 (01:46→22:34)
[2020-09-16 03:27] LABS: Estimated Average Glucose 126 mg/dl
[2020-09-16] MEDS: *HR* HYDROcodone/Acet 10/325 mg TABLET PO PRN ×3 (03:40→18:28)
[2020-09-16] MEDS: methylPREDNISolone 125 MG/2 ML VIAL IVP SCH (05:27)
[2020-09-16 07:26] LABS: Basophils # 0.1 K/mcL (0.0-0.2); Basophils % 0.2 %; Hematocrit 35.5 % (35.3-44.9); Hemoglobin 11.1 g/dL (11.5-15.4); Immature Granulocytes % 2.2 % (0-4); Lymphocytes % 7.6 %; Mean Corpuscular HGB Conc 31.3 g/dL (31.6-35.5); Mean Corpuscular Hemoglobin 28.9 pg (28.0-33.3); Mean Corpuscular Volume 92.4 fL (83.0-100.0); Mean Platelet Volume 12.2 fL (9.4-12.4); Monocytes # 1.6 K/mcL (0.0-1.3); Monocytes % 6.3 %; Neutrophils # 21.8 K/mcL (1.6-8.9); Platelet Count 374 K/mcL (140-400); Red Blood Count 3.84 M/mcL (3.82-4.97); Red Cell Distribution Width 14.5 % (11.5-14.5); Segmented Neutrophils % 83.7 %
[2020-09-16] MEDS: Budesonide/Formoterol 160/4.5 1 PUFF INH IH SCH ×2 (07:33→20:12)
[2020-09-16] MEDS: Metoprolol XL (24 HR) Succ 25 MG TAB.ER.24H PO SCH (08:06)
[2020-09-16] MEDS: Apixaban 5 MG TABLET PO SCH ×2 (08:06→20:06)
[2020-09-16] MEDS: Gabapentin 300 MG CAPSULE PO SCH ×2 (08:06→11:07)
[2020-09-16] MEDS: Aspirin Enteric Coated 81 MG Tablet PO SCH (08:06)
[2020-09-16] MEDS: lisinopriL 5 MG TABLET PO SCH (08:06)
[2020-09-16] MEDS: Insulin LISPRO 300 UNITS/3 ML VIAL SUBQ SCH ×3 (08:07→16:13)
[2020-09-16] MEDS: Cyanocobalamin (B-12) 1,000 MCG TABLET PO SCH (08:07)
[2020-09-16 08:42] LABS: Platelet Estimate Normal (Normal)
[2020-09-16] MEDS: ALPRAZolam 0.25 MG TABLET PO PRN ×2 (16:17→22:34)
[2020-09-16] MEDS: traZODone 50 MG TABLET PO SCH (20:05)
[2020-09-16] MEDS: Sucralfate 1 GM TABLET PO SCH (20:06)
[2020-09-16] MEDS: Gabapentin 400 MG CAPSULE PO SCH (20:06)
[2020-09-16] MEDS: Famotidine 20 MG TABLET PO SCH (20:06)
[2020-09-16 23:23] LABS: APTT (LE Anticoag) 57 sec (32-48); Diluted Russell Viper Venom 28 sec (33-44); LE APTT D Heparin Neutralized 36 sec (32-48); LE Coag Reptilase Time 17.2 sec (<=21.9); PT (LE-Anticoag) 12.6 sec (12.0-15.5); Thrombin Time 59.6 sec (14.7-19.5)
[2020-09-17 02:03] LABS: Basophils # 0.1 K/mcL (0.0-0.2); Basophils % 0.2 %; Hematocrit 34.6 % (35.3-44.9); Hemoglobin 10.7 g/dL (11.5-15.4); Immature Granulocytes % 3.4 % (0-4); Lymphocytes # 1.7 K/mcL (0.6-4.6); Lymphocytes % 7.8 %; Mean Corpuscular HGB Conc 30.9 g/dL (31.6-35.5); Mean Corpuscular Hemoglobin 29.1 pg (28.0-33.3); Mean Platelet Volume 11.7 fL (9.4-12.4); Monocytes # 1.8 K/mcL (0.0-1.3); Monocytes % 8.4 %; Neutrophils # 17.1 K/mcL (1.6-8.9); Platelet Count 340 K/mcL (140-400); Red Blood Count 3.68 M/mcL (3.82-4.97); Red Cell Distribution Width 14.4 % (11.5-14.5); Segmented Neutrophils % 80.2 %; White Blood Count 21.4 K/mcL (4.3-11.1)
[2020-09-17 02:26] LABS: BUN/Creatinine Ratio 29 (6-26); Blood Urea Nitrogen 29 mg/dL (8-23); Calcium 9.9 mg/dL (8.6-10.3); Carbon Dioxide 20 mEq/L (23-29); Chloride 110 mEq/L (98-107); Glucose 122 mg/dL (70-105); Osmolality,Calculated 291 (280-300); Potassium 4.5 mEq/L (3.5-5.1); Sodium 137 mEq/L (136-145); eGFR For African Americans > 60 (> 60); eGFR For Non-African Americans 56 (> 60)
[2020-09-17] MEDS: Insulin LISPRO 300 UNITS/3 ML VIAL SUBQ SCH ×3 (07:26→16:00)
[2020-09-17] MEDS: Budesonide/Formoterol 160/4.5 1 PUFF INH IH SCH ×2 (08:24→19:52)
[2020-09-17] MEDS: Aspirin Enteric Coated 81 MG Tablet PO SCH (08:51)
[2020-09-17] MEDS: Cyanocobalamin (B-12) 1,000 MCG TABLET PO SCH (08:51)
[2020-09-17] MEDS: Metoprolol XL (24 HR) Succ 25 MG TAB.ER.24H PO SCH (08:51)
[2020-09-17] MEDS: Apixaban 5 MG TABLET PO SCH (08:51)
[2020-09-17] MEDS: lisinopriL 5 MG TABLET PO SCH (08:51)
[2020-09-17] MEDS: Gabapentin 300 MG CAPSULE PO SCH ×2 (08:51→12:18)
[2020-09-17] MEDS: *HR* HYDROcodone/Acet 10/325 mg TABLET PO PRN ×2 (08:52→22:40)
[2020-09-17] MEDS: Ondansetron 4 MG/2 ML VIAL IVP PRN ×2 (10:48→20:43)
[2020-09-17] MEDS: ALPRAZolam 0.25 MG TABLET PO PRN ×2 (12:22→20:39)
[2020-09-17] MEDS: *HR* HYDROcodone/Acet 5/325 mg TABLET PO PRN (16:03)
[2020-09-17] MEDS: traZODone 50 MG TABLET PO SCH (20:38)
[2020-09-17] MEDS: Gabapentin 400 MG CAPSULE PO SCH (20:39)
[2020-09-17] MEDS: Acetaminophen 325 MG TABLET PO PRN (20:39)
[2020-09-17] MEDS: Famotidine 20 MG TABLET PO SCH (20:39)
[2020-09-17] MEDS: Sucralfate 1 GM TABLET PO SCH (20:39)
[2020-09-18 00:32] LABS: Basophils # 0.1 K/mcL (0.0-0.2); Basophils % 0.9 %; Eosinophils # 0.1 K/mcL (0.0-0.6); Eosinophils % 0.5 %; Hematocrit 37.5 % (35.3-44.9); Hemoglobin 11.4 g/dL (11.5-15.4); Immature Granulocytes % 4.7 % (0-4); Lymphocytes # 3.9 K/mcL (0.6-4.6); Lymphocytes % 25.7 %; Mean Corpuscular HGB Conc 30.4 g/dL (31.6-35.5); Mean Corpuscular Hemoglobin 28.6 pg (28.0-33.3); Mean Platelet Volume 12.1 fL (9.4-12.4); Monocytes # 1.6 K/mcL (0.0-1.3); Monocytes % 10.5 %; Neutrophils # 8.8 K/mcL (1.6-8.9); Platelet Count 329 K/mcL (140-400); Red Blood Count 3.99 M/mcL (3.82-4.97); Red Cell Distribution Width 14.6 % (11.5-14.5); Segmented Neutrophils % 57.7 %; White Blood Count 15.2 K/mcL (4.3-11.1)
[2020-09-18 00:44] LABS: Calcium 9.3 mg/dL (8.6-10.3); Potassium 3.6 mEq/L (3.5-5.1)
[2020-09-18] MEDS: Budesonide/Formoterol 160/4.5 1 PUFF INH IH SCH ×2 (08:26→19:41)
[2020-09-18] MEDS: Gabapentin 300 MG CAPSULE PO SCH ×2 (08:56→11:45)
[2020-09-18] MEDS: Metoprolol XL (24 HR) Succ 25 MG TAB.ER.24H PO SCH (08:57)
[2020-09-18] MEDS: lisinopriL 5 MG TABLET PO SCH (08:57)
[2020-09-18] MEDS: Cyanocobalamin (B-12) 1,000 MCG TABLET PO SCH (08:57)
[2020-09-18] MEDS: Insulin LISPRO 300 UNITS/3 ML VIAL SUBQ SCH ×3 (08:58→16:34)
[2020-09-18] MEDS: Aspirin Enteric Coated 325 MG Tablet PO SCH (09:40)
[2020-09-18] MEDS: *HR* HYDROcodone/Acet 10/325 mg TABLET PO PRN ×2 (09:40→20:26)
[2020-09-18] MEDS: Ondansetron 4 MG/2 ML VIAL IVP PRN ×2 (11:29→20:25)
[2020-09-18 14:18] LABS: FACV Specimen WHOLE BLOOD
[2020-09-18] MEDS: ALPRAZolam 0.25 MG TABLET PO PRN (15:03)
[2020-09-18] MEDS: Gabapentin 400 MG CAPSULE PO SCH (20:24)
[2020-09-18] MEDS: Sucralfate 1 GM TABLET PO SCH (20:26)
[2020-09-18] MEDS: Famotidine 20 MG TABLET PO SCH (20:26)
[2020-09-18] MEDS: traZODone 50 MG TABLET PO SCH (20:26)
[2020-09-19 01:21] LABS: Basophils % 0.1 %; Eosinophils # 0.2 K/mcL (0.0-0.6); Eosinophils % 1.7 %; Hematocrit 34.7 % (35.3-44.9); Hemoglobin 10.7 g/dL (11.5-15.4); Immature Granulocytes % 5.9 % (0-4); Lymphocytes # 3.6 K/mcL (0.6-4.6); Lymphocytes % 32.2 %; Mean Corpuscular HGB Conc 30.8 g/dL (31.6-35.5); Mean Corpuscular Hemoglobin 28.9 pg (28.0-33.3); Mean Corpuscular Volume 93.8 fL (83.0-100.0); Monocytes # 1.1 K/mcL (0.0-1.3); Monocytes % 9.8 %; Neutrophils # 5.7 K/mcL (1.6-8.9); Nucleated Red Blood Cells 0.3 /100 WBC (0); Platelet Count 296 K/mcL (140-400); Red Cell Distribution Width 14.6 % (11.5-14.5); Segmented Neutrophils % 50.3 %; White Blood Count 11.3 K/mcL (4.3-11.1)
[2020-09-19 01:34] LABS: BUN/Creatinine Ratio 40 (6-26); Blood Urea Nitrogen 42 mg/dL (8-23); Calcium 8.9 mg/dL (8.6-10.3); Carbon Dioxide 22 mEq/L (23-29); Chloride 109 mEq/L (98-107); Glucose 117 mg/dL (70-105); Osmolality,Calculated 300 (280-300); Potassium 3.9 mEq/L (3.5-5.1); Sodium 139 mEq/L (136-145); eGFR For African Americans > 60 (> 60); eGFR For Non-African Americans 54 (> 60)
[2020-09-19 02:07] LABS: Platelet Estimate Normal (Normal)
[2020-09-19 06:48] LABS: Fac V Leiden R506Q Mut Result NEGATIVE
[2020-09-19] MEDS: Budesonide/Formoterol 160/4.5 1 PUFF INH IH SCH ×2 (07:54→20:04)
[2020-09-19] MEDS: Insulin LISPRO 300 UNITS/3 ML VIAL SUBQ SCH ×3 (08:58→16:34)
[2020-09-19] MEDS: Gabapentin 300 MG CAPSULE PO SCH ×2 (08:58→13:21)
[2020-09-19] MEDS: Aspirin Enteric Coated 325 MG Tablet PO SCH (08:58)
[2020-09-19] MEDS: *HR* HYDROcodone/Acet 5/325 mg TABLET PO PRN (08:58)
[2020-09-19] MEDS: Metoprolol XL (24 HR) Succ 25 MG TAB.ER.24H PO SCH (08:59)
[2020-09-19] MEDS: lisinopriL 5 MG TABLET PO SCH (08:59)
[2020-09-19] MEDS: Cyanocobalamin (B-12) 1,000 MCG TABLET PO SCH (08:59)
[2020-09-19 11:57] LABS: Adenovirus Not Detected (Not Detect); Coronavirus 229E Not Detected (Not Detect); Coronavirus HKU1 Not Detected (Not Detect); Coronavirus NL63 Not Detected (Not Detect); Coronavirus OC43 Not Detected (Not Detect); Human Metapneumovirus Not Detected (Not Detect); Human Rhinovirus/Enterovirus Not Detected (Not Detect); Influenza A Subtype 2009 H1 Not Detected (Not Detect); SARS-CoV-2 Not Detected (Not Detect)
[2020-09-19 11:58] LABS: Bordetella Pertussis Not Detected (Not Detect); Chlamydophila pneumoniae Not Detected (Not Detect); Influenza B Not Detected (Not Detect); Mycoplasma pneumoniae Not Detected (Not Detect); Parainfluenza Virus 1 Not Detected (Not Detect); Parainfluenza Virus 2 Not Detected (Not Detect); Parainfluenza Virus 3 Not Detected (Not Detect); Parainfluenza Virus 4 Not Detected (Not Detect); Respiratory Syncytial Virus Not Detected (Not Detect)
[2020-09-19] MEDS: *HR* HYDROcodone/Acet 10/325 mg TABLET PO PRN (16:33)
[2020-09-19] MEDS: Famotidine 20 MG TABLET PO SCH (20:16)
[2020-09-19] MEDS: traZODone 50 MG TABLET PO SCH (20:16)
[2020-09-19] MEDS: Gabapentin 400 MG CAPSULE PO SCH (20:16)
[2020-09-19] MEDS: Clotrimazole 1% CRM 15 GM TUBE TP SCH (20:17)
[2020-09-19] MEDS: Sucralfate 1 GM TABLET PO SCH (20:17)
[2020-09-19 21:48] LABS: Prothrombin G20210A Specimen WHOLE BLOOD
[2020-09-19] MEDS: ALPRAZolam 0.25 MG TABLET PO PRN (21:51)
[2020-09-20] MEDS: *HR* HYDROcodone/Acet 5/325 mg TABLET PO PRN ×3 (04:48→23:07)
[2020-09-20] MEDS: Budesonide/Formoterol 160/4.5 1 PUFF INH IH SCH ×2 (07:44→19:26)
[2020-09-20] MEDS: Aspirin Enteric Coated 325 MG Tablet PO SCH (09:42)
[2020-09-20] MEDS: Cyanocobalamin (B-12) 1,000 MCG TABLET PO SCH (09:42)
[2020-09-20] MEDS: Gabapentin 300 MG CAPSULE PO SCH ×2 (09:42→14:20)
[2020-09-20] MEDS: lisinopriL 5 MG TABLET PO SCH (09:42)
[2020-09-20] MEDS: Insulin LISPRO 300 UNITS/3 ML VIAL SUBQ SCH ×3 (09:44→16:20)
[2020-09-20] MEDS: Metoprolol XL (24 HR) Succ 25 MG TAB.ER.24H PO SCH (09:44)
[2020-09-20] MEDS: Clotrimazole 1% CRM 15 GM TUBE TP SCH ×2 (09:45→20:35)
[2020-09-20] MEDS: ALPRAZolam 0.25 MG TABLET PO PRN (09:53)
[2020-09-20] MEDS: *HR* HYDROcodone/Acet 10/325 mg TABLET PO PRN (17:36)
[2020-09-20] MEDS: traZODone 50 MG TABLET PO SCH (20:34)
[2020-09-20] MEDS: Sucralfate 1 GM TABLET PO SCH (20:34)
[2020-09-20] MEDS: Gabapentin 400 MG CAPSULE PO SCH (20:35)
[2020-09-20] MEDS: Famotidine 20 MG TABLET PO SCH (20:35)
[2020-09-21] MEDS: Insulin LISPRO 300 UNITS/3 ML VIAL SUBQ SCH ×3 (08:18→16:26)
[2020-09-21] MEDS: Gabapentin 300 MG CAPSULE PO SCH ×2 (08:23→11:30)
[2020-09-21] MEDS: Aspirin Enteric Coated 325 MG Tablet PO SCH (08:24)
[2020-09-21] MEDS: Clotrimazole 1% CRM 15 GM TUBE TP SCH ×2 (08:25→20:03)
[2020-09-21] MEDS: *HR* HYDROcodone/Acet 10/325 mg TABLET PO PRN (08:26)
[2020-09-21] MEDS: Metoprolol XL (24 HR) Succ 25 MG TAB.ER.24H PO SCH (08:27)
[2020-09-21] MEDS: lisinopriL 5 MG TABLET PO SCH (08:27)
[2020-09-21] MEDS: Cyanocobalamin (B-12) 1,000 MCG TABLET PO SCH (08:28)
[2020-09-21] MEDS ORDERED: Topiramate 25 MG CAP.SPRINK PO SCH (09:00)
[2020-09-21] MEDS: Budesonide/Formoterol 160/4.5 1 PUFF INH IH SCH ×2 (10:00→21:38)
[2020-09-21] MEDS: traZODone 50 MG TABLET PO SCH (20:02)
[2020-09-21] MEDS: Sucralfate 1 GM TABLET PO SCH (20:02)
[2020-09-21] MEDS: *HR* HYDROcodone/Acet 5/325 mg TABLET PO PRN (20:03)
[2020-09-21] MEDS: Famotidine 20 MG TABLET PO SCH (20:03)
[2020-09-21] MEDS: Gabapentin 400 MG CAPSULE PO SCH (20:03)
[2020-09-21] MEDS: Ondansetron 4 MG/2 ML VIAL IVP PRN (21:44)
[2020-09-22] MEDS: *HR* HYDROcodone/Acet 10/325 mg TABLET PO PRN ×4 (04:27→22:49)
[2020-09-22] MEDS: Budesonide/Formoterol 160/4.5 1 PUFF INH IH SCH ×2 (07:33→22:07)
[2020-09-22] MEDS: Cyanocobalamin (B-12) 1,000 MCG TABLET PO SCH (08:25)
[2020-09-22] MEDS: Gabapentin 300 MG CAPSULE PO SCH ×2 (08:25→13:13)
[2020-09-22] MEDS: Aspirin Enteric Coated 325 MG Tablet PO SCH (08:25)
[2020-09-22] MEDS: lisinopriL 5 MG TABLET PO SCH (08:26)
[2020-09-22] MEDS: Insulin LISPRO 300 UNITS/3 ML VIAL SUBQ SCH ×3 (08:26→16:30)
[2020-09-22] MEDS: Metoprolol XL (24 HR) Succ 25 MG TAB.ER.24H PO SCH (08:26)
[2020-09-22] MEDS: ALPRAZolam 0.25 MG TABLET PO PRN ×2 (08:26→21:13)
[2020-09-22] MEDS: Clotrimazole 1% CRM 15 GM TUBE TP SCH ×2 (08:27→21:13)
[2020-09-22] MEDS ORDERED: Bismuth Subsalicylate 120 ML ORAL SUSPENSION PO ONE (08:30)
[2020-09-22] MEDS: Ondansetron 4 MG/2 ML VIAL IVP PRN ×2 (08:44→16:29)
[2020-09-22] MEDS ORDERED: Divalproex (24 HR) 250 MG TABLET PO SCH (21:00)
[2020-09-22] MEDS: Sucralfate 1 GM TABLET PO SCH (21:12)
[2020-09-22] MEDS: traZODone 50 MG TABLET PO SCH (21:12)
[2020-09-22] MEDS: Gabapentin 400 MG CAPSULE PO SCH (21:13)
[2020-09-22] MEDS: Famotidine 20 MG TABLET PO SCH (21:13)
[2020-09-23] MEDS: Ondansetron 4 MG/2 ML VIAL IVP PRN (03:26)
[2020-09-23] MEDS: Budesonide/Formoterol 160/4.5 1 PUFF INH IH SCH (07:25)
[2020-09-23 07:26] VITALS: BP 105/73
[2020-09-23] MEDS: Cyanocobalamin (B-12) 1,000 MCG TABLET PO SCH (09:30)
[2020-09-23] MEDS: Metoprolol XL (24 HR) Succ 25 MG TAB.ER.24H PO SCH (09:30)
[2020-09-23] MEDS: lisinopriL 5 MG TABLET PO SCH (09:31)
[2020-09-23] MEDS: Insulin LISPRO 300 UNITS/3 ML VIAL SUBQ SCH (09:31)
[2020-09-23] MEDS: Gabapentin 300 MG CAPSULE PO SCH (09:31)
[2020-09-23] MEDS: Aspirin Enteric Coated 325 MG Tablet PO SCH (09:31)
[2020-09-23] MEDS: Clotrimazole 1% CRM 15 GM TUBE TP SCH (09:32)
[2020-09-23] MEDS: *HR* HYDROcodone/Acet 10/325 mg TABLET PO PRN (09:37)
[2020-09-23] MEDS: ALPRAZolam 0.25 MG TABLET PO PRN (09:38)
== END 2020-09-23 10:40 | DRG 197 ==
LOC: EMEROOARM 13:17 → 2ANU 13:17 → SUATTDRO 17:29 → 2ANU 19:09 → SUATTDRO 09-16 10:51 → 2ANU 09-17 16:01
PROVIDERS: ADMIT General Practice; ATTEND Internal Medicine

== ENCOUNTER 2021-07-04 22:13 | Observation (INO) ==
[2021-07-05] MEDS ORDERED: Acetaminophen 325 MG TABLET PO PRN (01:46)
[2021-07-05] MEDS ORDERED: Naloxone 0.4 MG/ML INJ IVP PRN (01:46)
[2021-07-05] MEDS ORDERED: Melatonin 3 MG TABLET PO PRN (01:46)
[2021-07-05] MEDS ORDERED: Perflutren Lipid Microsphere 1.3 ML in 0.9 % Sodium Chloride 8.7 ML IVP PRN (01:47)
[2021-07-05] MEDS ORDERED: Morphine Sulfate 2 MG/ML SYRINGE IVP ONE ×2 (01:49→05:14)
[2021-07-05] MEDS ORDERED: Nitroglycerin 1 INCH/GM PACKET TP ONE (01:49)
[2021-07-05] MEDS ORDERED: Furosemide 20 MG/2 ML VIAL IVP ONE (02:22)
[2021-07-05] MEDS ORDERED: Potassium Phosphate 44 MEQ in 0.9 % Sodium Chloride 250 ML IVPB ONE (02:30)
[2021-07-05] MEDS ORDERED: *HR* Heparin 5,000 UNIT/ML VIAL IVP PRN ×2 (02:48)
[2021-07-05] MEDS ORDERED: Heparin 25,000UNIT/250ML 1/2NS 25,000 UNIT/250 ML IV.SOLN IVC SCH (03:00)
[2021-07-05 04:47] LABS: BUN/Creatinine Ratio 17 (6-26); Blood Urea Nitrogen 19 mg/dL (8-23); Carbon Dioxide 21 mEq/L (23-29); Chloride 115 mEq/L (98-107); Chol/HDL Ratio 8.6 (0-4.9); Cholesterol 207 mg/dL (< 200); Glucose 119 mg/dL (70-105); HDL Cholesterol 24 mg/dL (40-59); LDL Cholesterol,Calculated 113 mg/dL (< 100); Osmolality,Calculated 295 (280-300); Potassium 3.2 mEq/L (3.5-5.1); Sodium 141 mEq/L (136-145); Triglycerides 349 mg/dL (< 150); eGFR For African Americans > 60 (> 60); eGFR For Non-African Americans 50 (> 60)
[2021-07-05 04:54] LABS: Basophils # 0.1 K/mcL (0.0-0.2); Basophils % 0.8 %; Eosinophils # 0.2 K/mcL (0.0-0.6); Eosinophils % 2.2 %; Hematocrit 34.7 % (35.3-44.9); Hemoglobin 11.4 g/dL (11.5-15.4); Immature Granulocytes % 0.2 % (0-4); Lymphocytes # 4.2 K/mcL (0.6-4.6); Lymphocytes % 42.2 %; Mean Corpuscular HGB Conc 32.9 g/dL (31.6-35.5); Mean Corpuscular Hemoglobin 29.5 pg (28.0-33.3); Mean Corpuscular Volume 89.7 fL (83.0-100.0); Mean Platelet Volume 12.8 fL (9.4-12.4); Monocytes # 0.8 K/mcL (0.0-1.3); Monocytes % 8.1 %; Neutrophils # 4.7 K/mcL (1.6-8.9); Platelet Count 242 K/mcL (140-400); Red Blood Count 3.87 M/mcL (3.82-4.97); Red Cell Distribution Width 13.8 % (11.5-14.5); Segmented Neutrophils % 46.5 %
[2021-07-05 05:05] LABS: Prothrombin Time 10.7 Seconds (9.4-12.1)
[2021-07-05] MEDS: Gabapentin 300 MG CAPSULE PO SCH ×3 (08:54→21:29)
[2021-07-05] MEDS: *HR* HYDROcodone/Acet 5/325 mg TABLET PO PRN ×2 (08:54→21:31)
[2021-07-05] MEDS: Metoprolol XL (24 HR) Succ 50 MG TAB.ER.24H PO SCH (08:54)
[2021-07-05] MEDS: Ondansetron 4 MG/2 ML VIAL IVP PRN (08:59)
[2021-07-05] MEDS ORDERED: Nitroglycerin 1,000 MCG/5 ML VIAL IV ONE (14:09)
[2021-07-05] MEDS ORDERED: *HR* Heparin 10,000 UNIT/10 ML VIAL ONE (14:09)
[2021-07-05] MEDS ORDERED: ISOVUE-370 200 ML INFUS..BTL ONE (14:09)
[2021-07-05] MEDS ORDERED: 0.9 % Sodium Chloride 2,000 ML ONE (14:09)
[2021-07-05] MEDS ORDERED: Heparin 1,000 UNITS/500 mL 500 ML ONE (14:09)
[2021-07-05] MEDS ORDERED: *HR* Midazolam HCl 5 MG/5 ML VIAL IVP ONE (14:34)
[2021-07-05] MEDS ORDERED: *HR* FentaNYL (PF) 100 MCG/2 ML VIAL ONE (14:34)
[2021-07-05] MEDS ORDERED: *HR* Bivalirudin 250 MG VIAL IVC ONE (14:56)
[2021-07-05] MEDS: Aspirin 81 MG TAB.CHEW PO SCH (18:07)
[2021-07-06] MEDS: Ondansetron 4 MG/2 ML VIAL IVP PRN ×3 (00:21→18:43)
[2021-07-06] MEDS: *HR* HYDROcodone/Acet 5/325 mg TABLET PO PRN ×3 (03:43→18:43)
[2021-07-06 04:02] LABS: BUN/Creatinine Ratio 18 (6-26); Blood Urea Nitrogen 17 mg/dL (8-23); Calcium 8.8 mg/dL (8.6-10.3); Carbon Dioxide 21 mEq/L (23-29); Chloride 115 mEq/L (98-107); Glucose 136 mg/dL (70-105); Magnesium 1.8 mg/dL (1.6-2.6); Osmolality,Calculated 294 (280-300); Phosphorous 3.8 mg/dL (2.7-4.5); Potassium 3.4 mEq/L (3.5-5.1); Sodium 140 mEq/L (136-145); eGFR For African Americans > 60 (> 60); eGFR For Non-African Americans > 60 (> 60)
[2021-07-06 04:03] LABS: Hemoglobin 10.7 g/dL (11.5-15.4)
[2021-07-06] MEDS: Metoprolol XL (24 HR) Succ 50 MG TAB.ER.24H PO SCH (07:51)
[2021-07-06] MEDS: Aspirin 81 MG TAB.CHEW PO SCH (07:51)
[2021-07-06] MEDS: Gabapentin 300 MG CAPSULE PO SCH ×3 (07:51→20:41)
[2021-07-06] MEDS: Acetaminophen/Butalbital/CaffeineTABLET PO PRN ×2 (09:26→16:29)
[2021-07-06] MEDS ORDERED: Isosorbide MONOnitrate (24 HR) 30 MG TAB.ER.24H PO SCH (14:00)
[2021-07-06] MEDS ORDERED: traZODone 50 MG TABLET PO SCH (21:00)
[2021-07-06] MEDS: Nitroglycerin 0.4 MG TAB.SUBL SL PRN ×3 (21:30→21:42)
[2021-07-07 02:59] VITALS: O2SAT 93
[2021-07-07 07:51] VITALS: BP 153/79; PULSE 77; TEMP 98.3
[2021-07-07 08:29] LABS: BUN/Creatinine Ratio 14 (6-26); Blood Urea Nitrogen 14 mg/dL (8-23); Calcium 8.6 mg/dL (8.6-10.3); Carbon Dioxide 22 mEq/L (23-29); Chloride 112 mEq/L (98-107); Glucose 103 mg/dL (70-105); Magnesium 1.8 mg/dL (1.6-2.6); Osmolality,Calculated 289 (280-300); Potassium 4.2 mEq/L (3.5-5.1); Sodium 139 mEq/L (136-145); eGFR For African Americans > 60 (> 60); eGFR For Non-African Americans 58 (> 60)
[2021-07-07] MEDS ORDERED: Isosorbide MONOnitrate (24 HR) 30 MG TAB.ER.24H PO SCH (09:00)
[2021-07-07] MEDS: Gabapentin 300 MG CAPSULE PO SCH (09:16)
[2021-07-07] MEDS: Aspirin 81 MG TAB.CHEW PO SCH (09:16)
[2021-07-07] MEDS: Metoprolol XL (24 HR) Succ 50 MG TAB.ER.24H PO SCH (09:17)
== END 2021-07-07 10:45 | disposition home or self-care (01) ==
LOC: 3ANU → SUATTDRO 07-05 00:58
PROVIDERS: ADMIT Internal Medicine; ATTEND Internal Medicine